=== PATIENT | female | born 1975 | race Caucasian/White ===

== ENCOUNTER 2021-11-24 09:27 | Outpatient (REF) | payer MEDICAID, SELFPAY ==
--- NOTE | ~2021-11-24 | XR_ITS ---
EXAMINATION: BILATERAL HAND X-RAY CLINICAL INFORMATION: Pain and swelling COMPARISON: None TECHNIQUE: 3 views of each hand FINDINGS: Bone alignment is normal. No fracture or dislocation. Bone mineralization is normal. Joint spaces are normal. Soft tissues are normal. XR/XR hand RT min 3V IMPRESSION: Unremarkable exam.
--- NOTE | ~2021-11-24 | XR_ITS ---
EXAMINATION: BILATERAL HAND X-RAY CLINICAL INFORMATION: Pain and swelling COMPARISON: None TECHNIQUE: 3 views of each hand FINDINGS: Bone alignment is normal. No fracture or dislocation. Bone mineralization is normal. Joint spaces are normal. Soft tissues are normal. XR/XR hand LT min 3V IMPRESSION: Unremarkable exam.
== END 2021-11-24 09:28 | disposition home or self-care (01) ==
LOC: HO.XRAY 09:27
PROVIDERS: PCP Internal Medicine Geriatric Medicine; Visit Provider Internal Medicine Geriatric Medicine
DX: M79.641 Pain in right hand (principal); M79.642 Pain in left hand
CPT/HCPCS: 73130

== ENCOUNTER 2022-01-08 20:56 | Observation (INO) | payer MEDICAID, SELFPAY ==
--- NOTE | ~2022-01-08 | XR_ITS ---
EXAMINATION: XR CHEST CLINICAL INFORMATION: Chest pain COMPARISON: None TECHNIQUE: Frontal view of the chest was obtained. FINDINGS: No significant abnormality is noted involving the heart, lungs, mediastinum, bony thorax or soft tissues. XR/XR chest 1V IMPRESSION: Unremarkable examination.
--- NOTE | 2022-01-08 21:00 | ECG_ITS ---
Test Reason : HYPERTENSION Blood Pressure : / mmHG Vent. Rate : 076 BPM Atrial Rate : 076 BPM P-R Int : 170 ms QRS Dur : 076 ms QT Int : 408 ms P-R-T Axes : 050 011 035 degrees QTc Int : 459 ms Normal sinus rhythm Normal ECG When compared with ECG of 18-DEC-2014 15:49, No significant change was found Referred By: Marielena Watts Electronically Signed By:CHOLO CISNEROS MD
[2022-01-08 21:01] VITALS: BP 167/78; BP 204/136; PULSE 77; PULSE 81; RESP 20; TEMP 36.8; O2SAT 99; BMI 31.2
--- NOTE | 2022-01-08 21:16 | ED.CHESTPAIN ---
HPI - Chest Pain General Chief Complaint: Chest Pain Stated Complaint: CHEST PAIN Time Seen by Provider: 01/08/22 21:00 Source: patient and family Mode of arrival: EMS History of Present Illness HPI narrative: 46-year-old female, every day smoker, history of hypertension who presents with 2 days of constant substernal chest discomfort that becomes more severe intermittently, during these times that last approximately 5-10 minutes and is associated with mild nausea but no dizziness, headache, diaphoresis, or shortness of breath. However, today patient states that the pain became ?much more severe? she denies any association with deep inspiration but states that when she moves it becomes worse. Related Data Allergies Allergy/AdvReac Type Severity Reaction Status Date / Time ibuprofen [From MOTRIN] Allergy Unknown SWELLING Unverified 12/04/19 15:47 Motrin Allergy Unknown Uncoded 08/19/19 00:00 Review of Systems Review of Systems: Pertinent positives and negatives as stated in HPI 10 point review of systems is otherwise negative. PMFSH Past Medical History Source: nursing notes reviewed Social History Social History Advance Directives: No Advance Directives Information Provided: No Physical Exam Vital Signs: Vital Signs: Last Vital Signs Temp 98.4 F 01/08/22 23:23 Pulse 77 01/08/22 23:23 Resp 26 H 01/08/22 23:23 BP 159/78 H 01/08/22 23:23 Pulse Ox 97 01/08/22 23:23 O2 Del Method 01/08/22 23:23 BMI result Body Mass Index 31.2 VITAL SIGNS: Reviewed. GENERAL: Well developed, well nourished, in no acute distress. HEAD: Normocephalic/atraumatic EYES: PERRLA, EOMI EARS: Ext canals without abnormality OROPHARYNX: no oral lesions noted, posterior pharynx clear LUNGS: Normal breath sounds. No adventitious sounds or accessory muscle use. SpO2<99> CARDIOVASCULAR: Regular rate and rhythm without noted murmurs, no JVD or lower extremity edema. ABDOMEN: Soft, non-tender, non-distended with bowel sounds. MUSCULOSKELETAL: No tenderness, deformities, or effusions noted on gross inspection. EXTREMITIES: No cyanosis, clubbing or edema. SKIN: Inspection of the skin reveals no rashes NEUROLOGIC: Alert and oriented x 4. Strength and sensation to light touch were grossly intact x 4. Course Course Course Narrative: 46-year-old female with history and clinical presentation for which will rule out cardiopulmonary etiologies but suspect may be a costochondritis or acid reflux and the possibility of gallbladder or pancreatic etiology. Review of all investigations without acute changes on EKG, however serial troponins continue to rise and suspect ACS but patient is allergic to ibuprofen so aspirin not given. I discussed case with the inpatient hospitalist who accepts admission. MDM - Chest Pain Lab Data Result diagrams: 01/08/22 21:13 01/08/22 21:49 Labs: Lab Results 01/08/22 01/08/22 01/08/22 Range/Units 21:13 21:13 21:28 WBC 10.2 (4.8-10.8) X10*3/uL RBC 4.24 (4.20-5.50) X10*6/uL Hgb 12.0 (12.0-16.0) g/dl Hct 36.9 L (37.0-47.0) % MCV 87.0 (80.0-98.0) fL MCH 28.3 (27.0-33.0) pg MCHC 32.5 (31.0-35.0) g/dl RDW 13.4 (11.0-16.0) % Plt Count 232 (160-400) X10*3/uL MPV 11.2 (9.4-12.3) fL Immature Gran % (Auto) 0.3 (0.0-0.4) % Neut % (Auto) 52.5 (45-73) % Lymph % (Auto) 32.0 (20-40) % [place] % (Auto) 11.5 H (2-11) % Eos % (Auto) 3.2 (0-4) % Baso % (Auto) 0.5 (0-2) % Lymph # (Auto) 3.3 (1.2-4.9) X10*3/uL [place] # (Auto) 1.2 (0.1-1.2) X10*3/uL Eos # (Auto) 0.3 (0.0-0.4) X10*3/uL Baso # (Auto) 0.1 (0.0-0.2) X10*3/uL Abs Immat Gran (auto) 0.03 (0.00-0.03) X10*3/uL Absolute Neuts (auto) 5.3 (2.0-8.3) x10*3/uL Absolute Nucleated RBC 0.000 (0.0-0.012) X10*3/uL Nucleated RBC % (auto) 0.0 (0.0-0.2) /100WBC PT 11.0 (10.0-13.1) SEC INR 1.0 (0.9-1.1) D-Dimer High Sensitivty 183 NG/ML Sodium (135-145) mmol/L Potassium (3.3-5.1) mmol/L Chloride (96-108) mmol/L Carbon Dioxide (22-29) mmol/L Anion Gap (12-20) BUN (9-16) mg/dL Creatinine (0.5-1.4) mg/dL Estim Creat Clear Calc Estimated GFR Random Glucose (60-115) mg/dL Calcium (8.4-10.2) mg/dL Total Bilirubin (0.0-1.0) mg/dL AST (5-31) U/L ALT (0-31) U/L Alkaline Phosphatase (39-117) U/L Troponin I High Sens (<3.5-17.0) ng/L Total Protein (6.5-8.0) g/dL Albumin (3.5-5.0) g/dL Lipase (8-78) U/L Urine Color Urine Appearance Urine pH (5.0-9.0) Ur Specific [place] (1.005-1.025) Urine Protein (Neg-Trace) mg/dL Urine Glucose (UA) (Negative) mg/dL Urine Ketones (Negative) mg/dL Urine Blood (Negative) Urine Nitrite (Negative) Ur Leukocyte Esterase (Negative) COVID-19 ([facility]) Negative (Negative) COVID-19 Clin Com See Note 01/08/22 01/08/22 01/08/22 Range/Units 21:49 21:49 23:20 WBC (4.8-10.8) X10*3/uL RBC (4.20-5.50) X10*6/uL Hgb (12.0-16.0) g/dl Hct (37.0-47.0) % MCV (80.0-98.0) fL MCH (27.0-33.0) pg MCHC (31.0-35.0) g/dl RDW (11.0-16.0) % Plt Count (160-400) X10*3/uL MPV (9.4-12.3) fL Immature Gran % (Auto) (0.0-0.4) % Neut % (Auto) (45-73) % Lymph % (Auto) (20-40) % [place] % (Auto) (2-11) % Eos % (Auto) (0-4) % Baso % (Auto) (0-2) % Lymph # (Auto) (1.2-4.9) X10*3/uL [place] # (Auto) (0.1-1.2) X10*3/uL Eos # (Auto) (0.0-0.4) X10*3/uL Baso # (Auto) (0.0-0.2) X10*3/uL Abs Immat Gran (auto) (0.00-0.03) X10*3/uL Absolute Neuts (auto) (2.0-8.3) x10*3/uL Absolute Nucleated RBC (0.0-0.012) X10*3/uL Nucleated RBC % (auto) (0.0-0.2) /100WBC PT (10.0-13.1) SEC INR (0.9-1.1) D-Dimer High Sensitivty NG/ML Sodium 141 (135-145) mmol/L Potassium 4.0 (3.3-5.1) mmol/L Chloride 110 H (96-108) mmol/L Carbon Dioxide 19 L (22-29) mmol/L Anion Gap 16 (12-20) BUN 10 (9-16) mg/dL Creatinine 0.74 (0.5-1.4) mg/dL Estim Creat Clear Calc 82.6 Estimated GFR > 60 Random Glucose 91 (60-115) mg/dL Calcium 8.5 (8.4-10.2) mg/dL Total Bilirubin 0.2 (0.0-1.0) mg/dL AST 15 (5-31) U/L ALT 18 (0-31) U/L Alkaline Phosphatase 70 (39-117) U/L Troponin I High Sens 31.8 H 55.8 H* D (<3.5-17.0) ng/L Total Protein 7.3 (6.5-8.0) g/dL Albumin 4.1 (3.5-5.0) g/dL Lipase 23 (8-78) U/L Urine Color Urine Appearance Urine pH (5.0-9.0) Ur Specific [place] (1.005-1.025) Urine Protein (Neg-Trace) mg/dL Urine Glucose (UA) (Negative) mg/dL Urine Ketones (Negative) mg/dL Urine Blood (Negative) Urine Nitrite (Negative) Ur Leukocyte Esterase (Negative) COVID-19 ([facility]) (Negative) COVID-19 Clin Com 01/09/22 01/09/22 Range/Units 00:18 01:10 WBC (4.8-10.8) X10*3/uL RBC (4.20-5.50) X10*6/uL Hgb (12.0-16.0) g/dl Hct (37.0-47.0) % MCV (80.0-98.0) fL MCH (27.0-33.0) pg MCHC (31.0-35.0) g/dl RDW (11.0-16.0) % Plt Count (160-400) X10*3/uL MPV (9.4-12.3) fL Immature Gran % (Auto) (0.0-0.4) % Neut % (Auto) (45-73) % Lymph % (Auto) (20-40) % [place] % (Auto) (2-11) % Eos % (Auto) (0-4) % Baso % (Auto) (0-2) % Lymph # (Auto) (1.2-4.9) X10*3/uL [place] # (Auto) (0.1-1.2) X10*3/uL Eos # (Auto) (0.0-0.4) X10*3/uL Baso # (Auto) (0.0-0.2) X10*3/uL Abs Immat Gran (auto) (0.00-0.03) X10*3/uL Absolute Neuts (auto) (2.0-8.3) x10*3/uL Absolute Nucleated RBC (0.0-0.012) X10*3/uL Nucleated RBC % (auto) (0.0-0.2) /100WBC PT (10.0-13.1) SEC INR (0.9-1.1) D-Dimer High Sensitivty NG/ML Sodium (135-145) mmol/L Potassium (3.3-5.1) mmol/L Chloride (96-108) mmol/L Carbon Dioxide (22-29) mmol/L Anion Gap (12-20) BUN (9-16) mg/dL Creatinine (0.5-1.4) mg/dL Estim Creat Clear Calc Estimated GFR Random Glucose (60-115) mg/dL Calcium (8.4-10.2) mg/dL Total Bilirubin (0.0-1.0) mg/dL AST (5-31) U/L ALT (0-31) U/L Alkaline Phosphatase (39-117) U/L Troponin I High Sens 94.5 H* D (<3.5-17.0) ng/L Total Protein (6.5-8.0) g/dL Albumin (3.5-5.0) g/dL Lipase (8-78) U/L Urine Color Yellow Urine Appearance Cloudy Urine pH 6.0 (5.0-9.0) Ur Specific [place] 1.015 (1.005-1.025) Urine Protein Negative (Neg-Trace) mg/dL Urine Glucose (UA) Negative (Negative) mg/dL Urine Ketones Negative (Negative) mg/dL Urine Blood Negative (Negative) Urine Nitrite Negative (Negative) Ur Leukocyte Esterase Negative (Negative) COVID-19 (MARY) (Negative) COVID-19 Clin Com ECG Data ECG #1: Attestation: I personally reviewed and interpreted this ECG as follows: Prior ECG tracings: available for review Interpretation: Normal sinus rhythm, HR-76, no STEMI, NC/QRS/QTC is within normal limits. Discharge Plan Discharge Clinical Impression: Chest pain, ACS (acute coronary syndrome), Hypertension Patient Disposition: Admitted As Inpatient
[2022-01-08 21:18] LABS: MANUAL DIFF FLAG NO
[2022-01-08 21:26] LABS: Basophils Absolute Auto 0.1 X10*3/uL (0.0-0.2); Basophils Percent Auto 0.5 % (0-2); Eosinophils Absolute Auto 0.3 X10*3/uL (0.0-0.4); Eosinophils Percent Auto 3.2 % (0-4); Hematocrit 36.9 % (37.0-47.0); Imm Gran Abs Auto 0.03 X10*3/uL (0.00-0.03); Imm Gran Pct Auto 0.3 % (0.0-0.4); Lymphocytes Absolute Auto 3.3 X10*3/uL (1.2-4.9); Mean Corpuscular HGB Conc 32.5 g/dl (31.0-35.0); Mean Corpuscular Hemoglobin 28.3 pg (27.0-33.0); Mean Platelet Volume 11.2 fL (9.4-12.3); Monocytes Absolute Auto 1.2 X10*3/uL (0.1-1.2); Monocytes Percent Auto 11.5 % (2-11); Neutrophils Absolute Auto 5.3 x10*3/uL (2.0-8.3); Neutrophils Percent Auto 52.5 % (45-73); PLT CLUMP 1; Red Blood Count 4.24 X10*6/uL (4.20-5.50); Red Cell Distribution Width 13.4 % (11.0-16.0); SCAN SMEAR FLAG 1
[2022-01-08 21:27] LABS: Platelet Count 232 X10*3/uL (160-400); White Blood Count 10.2 X10*3/uL (4.8-10.8)
[2022-01-08 21:49] LABS: COVID-19 Test Negative (Negative); IDNOW Serial# 08D9AD1C
[2022-01-08 22:12] LABS: Alanine Aminotransferase 18 U/L (0-31); Albumin Level 4.1 g/dL (3.5-5.0); Alkaline Phosphatase 70 U/L (39-117); Anion Gap 16 (12-20); Aspartate Amino Transferase 15 U/L (5-31); Bilirubin Total 0.2 mg/dL (0.0-1.0); Blood Urea Nitrogen 10 mg/dL (9-16); Calcium 8.5 mg/dL (8.4-10.2); Carbon Dioxide 19 mmol/L (22-29); Chloride 110 mmol/L (96-108); Creatinine Clr Calc Pharmacy 82.6; Estimated Glomerular Filt Rate > 60; Glucose Random 91 mg/dL (60-115); Lipase 23 U/L (8-78); Sodium 141 mmol/L (135-145); Total Protein 7.3 g/dL (6.5-8.0)
[2022-01-08 22:17] LABS: Troponin-I High Sensitivity 31.8 ng/L (<3.5-17.0)
[2022-01-08 22:32] LABS: D Dimer High Sensitivity 183 NG/ML
[2022-01-08 22:42] VITALS: BP 155/85; PULSE 75; RESP 18; TEMP 36.9; O2SAT 99
[2022-01-08 23:23] VITALS: BP 159/78; PULSE 77; RESP 26; TEMP 36.9; O2SAT 97
[2022-01-08 23:50] LABS: Troponin-I High Sensitivity 55.8 ng/L (<3.5-17.0)
[2022-01-09 00:25] LABS: Appearance Urine Cloudy; Color Urine Yellow; Glucose Urine UA Negative (Negative); Leukocyte Esterase Urine Negative (Negative); Nitrite Urine Negative (Negative); Specific Gravity - Urine 1.015 (1.005-1.025); Urine Blood Negative (Negative); Urine Ketones Negative (Negative); Urine Protein Negative (Neg-Trace)
[2022-01-09 01:41] LABS: Troponin-I High Sensitivity 94.5 ng/L (<3.5-17.0)
[2022-01-09 02:00] VITALS: BP 152/75; PULSE 91; RESP 17; TEMP 36.9; O2SAT 97
[2022-01-09 02:17] VITALS: PULSE 67
[2022-01-09] MEDS: LORazepam 0.5 MG TABLET PO (04:14)
--- NOTE | 2022-01-09 04:18 | PC.NURSE ---
Took over care at 3:30am Pt is resting in bed. no sign of distress. Medicated per Mar. Will continue to monitor.
--- NOTE | 2022-01-09 05:37 | PM.EVENT ---
Event Note Date of Service: 01/09/22 Event Note: pt was seen for admission. She does not want to stay. she feels anxious, despite being given ativan., she still does not want to stay. I did not get a chance to compelte H&P, or exam. She knows that risk of leaving against my medical advice, given her elevated trops in worst case scenario experiencing a major cardiac event and dying. she undersntad. Dr. Watts was present during this discussion with pt. She will be leaving against my medical adivce
--- NOTE | 2022-01-09 05:55 | PC.NURSE ---
Pt requesting to go home. Provider aware and into discuss risk vs. benefit, pt still requesting to go home. Reviewed discharge instructions with pt. pt verbalized understanding. No sign of distress.
== END 2022-01-09 06:30 | disposition left against medical advice (07) ==
LOC: HO.ED 01-09 01:56 → HO.EDOVER 01-09 01:57
PROVIDERS: Admitting Provider Internal Medicine; Emergency Provider Student in an Organized Health Care Education/Training Program; Visit Provider Internal Medicine
DX: I24.9 Acute ischemic heart disease, unspecified (principal); R07.9 Chest pain, unspecified; I10 Essential (primary) hypertension; Z20.822 Contact with and (suspected) exposure to COVID-19; F41.1 Generalized anxiety disorder; F17.200 Nicotine dependence, unspecified, uncomplicated
CPT/HCPCS: 36415; 71045; 80053; 81003; 83690; 84484; 85025; 85379; 85610; 87635; 93005; 99219; 99285

== ENCOUNTER 2022-01-09 19:19 | Inpatient (IN) | payer MEDICAID, SELFPAY ==
--- NOTE | ~2022-01-09 | CT_ITS ---
EXAMINATION: CTA CHEST PE STUDY CLINICAL INFORMATION: + dimer COMPARISON: No pertinent prior studies are available for comparison. TECHNIQUE: Prior to contrast administration, noncontrast localization images were obtained. After the administration of 65 mL of Omnipaque nonionic IV contrast, contiguous thin slice helical images were obtained through the thorax. Reformatted MIP images in the coronal and sagittal planes were obtained at the acquisition workstation. This CT examination was performed using dose optimization techniques as appropriate, variously including the following: *Automated exposure control *Adjustment of mA and/or kV according to patient size (this includes techniques or standardized protocols for targeted exams where dose is matched to indication/reason for exam; i.e. extremities or head) *Use of iterative reconstruction technique DLP: 276 mGy-cm. FINDINGS: The bolus timing on this study was acceptable for visualization of the pulmonary arterial tree. There are no intraluminal pulmonary arterial filling defects present to suggest pulmonary embolism. Minimal dependent atelectasis. No abnormal pulmonary nodules or masses are appreciated. No significant hilar or mediastinal adenopathy. There is no evidence of pleural effusion or pneumothorax. The heart is normal in size. No evidence of ventricular septal bowing or right heart strain. Great vessels are normal. Otherwise the mediastinum is unremarkable. There is no pericardial effusion or pericardial thickening. Limited evaluation of the upper abdominal viscera is unremarkable. CT/CT angio chest PE protocol IMPRESSION: No evidence for pulmonary emboli. VTE: Negative
--- NOTE | ~2022-01-09 | XR_ITS ---
EXAMINATION: XR CHEST CLINICAL INFORMATION: Chest pain COMPARISON: 01/08/2022, yesterday TECHNIQUE: Frontal view of the chest was obtained. FINDINGS: No significant abnormality is noted involving the heart, lungs, mediastinum, bony thorax or soft tissues. XR/XR chest 1V IMPRESSION: Unremarkable examination.
[2022-01-09 19:29] VITALS: BP 150/88; PULSE 106; O2SAT 100; BMI 29.1
--- NOTE | 2022-01-09 19:31 | ECG_ITS ---
Test Reason : CHEST PAIN Blood Pressure : / mmHG Vent. Rate : 078 BPM Atrial Rate : 078 BPM P-R Int : 164 ms QRS Dur : 070 ms QT Int : 416 ms P-R-T Axes : 047 001 -25 degrees QTc Int : 474 ms Normal sinus rhythm Inferior infarct , age undetermined T-wave inversion in Inferior leads Nonspecific T wave abnormality lateral precordial leads Abnormal ECG When compared with ECG of 08-JAN-2022 21:16, T wave inversion now evident in Inferior leads Nonspecific T wave abnormality lateral precordial leads Referred By: Snehal Cruz Electronically Signed By:CHOLO CISNEROS MD
--- NOTE | 2022-01-09 19:42 | ED.CHESTPAIN ---
HPI - Chest Pain General Chief Complaint: Chest Pain Stated Complaint: cp Time Seen by Provider: 01/09/22 19:29 Source: patient Mode of arrival: ambulatory Limitations: no limitations History of Present Illness HPI narrative: This is a 46-year-old female past medical history significant for hypertension presenting to the emergency department with complaints of severe intermittent substernal chest pain that times radiates into bilateral draws. Patient tells me that she was here yesterday and she left. She reports that at times she gets nausea with her shortness of breath she tells me that since she left the hospital yesterday it has been worsening. She also reports that sometimes her chest pain is worse with movement or palpation. Patient is a current daily smoker. No history of DVT or PE. Not on anticoagulation. She denies shortness of breath, dizziness, fevers, chills, vomiting, abdominal pain, weakness, vision changes. Related Data Allergies Allergy/AdvReac Type Severity Reaction Status Date / Time ibuprofen [From MOTRIN] Allergy Unknown SWELLING Unverified 12/04/19 15:47 Motrin Allergy Unknown Uncoded 08/19/19 00:00 Review of Systems Review of Systems: Constitutional : No Weight loss, No Fever, No Chills, No Fatigue, No Malaise ENT/Mouth : No sore throat, No Rhinorrhea Eyes: No Eye Pain, No Swelling, No Redness Cardiovascular : + Chest Pain, No SOB, No Dyspnea on Exertion, No Orthopnea, No Edema, No Palpitations Respiratory : No Cough, No Sputum, No Wheezing Gastrointestinal : No Nausea, No Vomiting, No Diarrhea, No Constipation, No abdominal Pain, No Hematochezia, No Melena Genitourinary : No Dysuria, No Urinary Frequency, No Hematuria, Musculoskeletal : No joint pain, No Myalgias, No Joint Swelling Skin : No Skin Lesions, No rash Neuro : No Weakness, No Numbness, No Dizziness, No Headache Psych : No Anxiety/Panic, No Depression All other systems reviewed and are negative Yes all other systems are reviewed and are negative [facility] Past Medical History Attestation statement: The following information was validated with the patient. Source: old records reviewed and nursing notes reviewed Social History Social History Alcohol intake: current Alcohol intake frequency: a few times a month Patient Tobacco Use Status: Current everyday Tobacco user Advance Directives: No Advance Directives Information Provided: No Physical Exam Vital Signs: Vital Signs: Last Vital Signs Pulse 74 01/09/22 20:44 Resp 22 H 01/09/22 20:00 BP 166/89 H 01/09/22 20:44 Pulse Ox 100 01/09/22 20:00 O2 Del Method 01/09/22 20:00 BMI result Body Mass Index 33.0 Appearance: Alert.? Oriented X3.? No acute distress.? Head: Normocephalic, atraumatic, no step-offs or deformities Eyes: Pupils equal, round and reactive to light.? ENT: Pharynx normal.? Neck: Normal inspection.? Neck supple.? CVS: Normal heart rate and rhythm.? Pulses normal.? Discomfort with palpation of anterior chest wall throughout. Respiratory: No respiratory distress.? Breath sounds normal.? Abdomen: Soft and nontender.? Skin: Skin warm and dry.? Normal skin color.? Normal skin turgor.? Extremities: No lower extremity edema.? No calf ttp. 5/5 strength to bilateral upper and lower extremities Back: No midline tenderness, no C-spine tenderness, full range of motion, no CVA tenderness bilaterally Neuro: Oriented X 3.? No motor deficit.? No sensory deficit. CN 2-12 intact Course Reevaluation(s) Reevaluation #1: CBC appears to be around patient's baseline. Chemistry with no acute electrolyte abnormalities requiring intervention. Troponin elevated to 10.8, new EKG ST depressions noted, concerning for NSTEMI. I did reach out to Cardiology Dr. Frank. Recommends heparin, metoprolol, nitroglycerin, atorvastatin. Initially I gave Plavix as patient has an aspirin allergy. Dimer slightly + low suspicion for PE however will obtain CTA to rule out Time: 20:48 Reevaluation #2: CTA negative patient will be admitted for NSTEMI. Discussed w/ hospitalist. Time: 21:45 MDM - Chest Pain MDM Narrative Medical decision making narrative: 194 46-year-old female presents with substernal chest pain x3 days worsening. Reports it intermittently radiates to her jaw. History of hypertension and current daily smoker. Physical examination with anterior chest wall pain on palpation. Regular rate and rhythm. Lungs clear. Abdomen soft nontender nondistended. Neuro nonfocal. Immediately upon patient's entry into the room an EKG was obtained which shows new ST depressions in lead III when compared to ekg from yesterday concerning for ACS. Patient allergic to asa reaching out to cardiology at this time. History and physical examination concerning for ACS. Low suspicion for PE, AAA, myocarditis, pericarditis, endocarditis Plan- labs, ekg, trop, cxr. Medical Records Data Attestation: I reviewed the patient's medical records. Lab Data Attestation: I reviewed the patient's lab results. Result diagrams: 01/09/22 19:53 01/09/22 19:53 Labs: Lab Results 01/09/22 01/09/22 01/09/22 Range/Units 19:53 19:53 19:53 WBC 8.2 (4.8-10.8) X10*3/uL RBC 4.26 (4.20-5.50) X10*6/uL Hgb 11.7 L (12.0-16.0) g/dl Hct 36.0 L (37.0-47.0) % MCV 84.5 (80.0-98.0) fL MCH 27.5 (27.0-33.0) pg MCHC 32.5 (31.0-35.0) g/dl RDW 13.1 (11.0-16.0) % Plt Count 232 (160-400) X10*3/uL MPV 9.3 L (9.4-12.3) fL Immature Gran % (Auto) 0.2 (0.0-0.4) % Neut % (Auto) 53.5 (45-73) % Lymph % (Auto) 33.0 (20-40) % [place] % (Auto) 9.5 (2-11) % Eos % (Auto) 3.2 (0-4) % Baso % (Auto) 0.6 (0-2) % Lymph # (Auto) 2.7 (1.2-4.9) X10*3/uL [place] # (Auto) 0.8 (0.1-1.2) X10*3/uL Eos # (Auto) 0.3 (0.0-0.4) X10*3/uL Baso # (Auto) 0.1 (0.0-0.2) X10*3/uL Abs Immat Gran (auto) 0.02 (0.00-0.03) X10*3/uL Absolute Neuts (auto) 4.4 (2.0-8.3) x10*3/uL Absolute Nucleated RBC 0.000 (0.0-0.012) X10*3/uL Nucleated RBC % (auto) 0.0 (0.0-0.2) /100WBC D-Dimer High Sensitivty NG/ML Sodium 141 (135-145) mmol/L Potassium 3.7 (3.3-5.1) mmol/L Chloride 109 H (96-108) mmol/L Carbon Dioxide 22 (22-29) mmol/L Anion Gap 14 (12-20) BUN 9 (9-16) mg/dL Creatinine 0.74 (0.5-1.4) mg/dL Estim Creat Clear Calc 96.7 Estimated GFR > 60 Random Glucose 118 H (60-115) mg/dL Calcium 8.9 (8.4-10.2) mg/dL Total Bilirubin 0.4 (0.0-1.0) mg/dL AST 16 (5-31) U/L ALT 18 (0-31) U/L Alkaline Phosphatase 74 (39-117) U/L Troponin I High Sens (<3.5-17.0) ng/L Total Protein 7.4 (6.5-8.0) g/dL Albumin 4.2 (3.5-5.0) g/dL Beta HCG, Quant < 2 mIU/mL COVID-19 ([facility]) Negative (Negative) COVID-19 Clin Com See Note 01/09/22 01/09/22 Range/Units 19:53 19:53 WBC (4.8-10.8) X10*3/uL RBC (4.20-5.50) X10*6/uL Hgb (12.0-16.0) g/dl Hct (37.0-47.0) % MCV (80.0-98.0) fL MCH (27.0-33.0) pg MCHC (31.0-35.0) g/dl RDW (11.0-16.0) % Plt Count (160-400) X10*3/uL MPV (9.4-12.3) fL Immature Gran % (Auto) (0.0-0.4) % Neut % (Auto) (45-73) % Lymph % (Auto) (20-40) % [place] % (Auto) (2-11) % Eos % (Auto) (0-4) % Baso % (Auto) (0-2) % Lymph # (Auto) (1.2-4.9) X10*3/uL [place] # (Auto) (0.1-1.2) X10*3/uL Eos # (Auto) (0.0-0.4) X10*3/uL Baso # (Auto) (0.0-0.2) X10*3/uL Abs Immat Gran (auto) (0.00-0.03) X10*3/uL Absolute Neuts (auto) (2.0-8.3) x10*3/uL Absolute Nucleated RBC (0.0-0.012) X10*3/uL Nucleated RBC % (auto) (0.0-0.2) /100WBC D-Dimer High Sensitivty 243 NG/ML Sodium (135-145) mmol/L Potassium (3.3-5.1) mmol/L Chloride (96-108) mmol/L Carbon Dioxide (22-29) mmol/L Anion Gap (12-20) BUN (9-16) mg/dL Creatinine (0.5-1.4) mg/dL Estim Creat Clear Calc Estimated GFR Random Glucose (60-115) mg/dL Calcium (8.4-10.2) mg/dL Total Bilirubin (0.0-1.0) mg/dL AST (5-31) U/L ALT (0-31) U/L Alkaline Phosphatase (39-117) U/L Troponin I High Sens 210.8 H* D (<3.5-17.0) ng/L Total Protein (6.5-8.0) g/dL Albumin (3.5-5.0) g/dL Beta HCG, Quant mIU/mL COVID-19 (MARY) (Negative) COVID-19 Clin Com Critical Care Time Critical Care Time Critical Care Time: Yes Total Critical Care Time: 35 Attestation: I attest to this time spent taking care of the patient, obtaining history, physical, reviewing labs, imaging, speaking to my attending, speaking to specialist. Discharge Plan Discharge Clinical Impression: ACS (acute coronary syndrome), Non-ST elevation PA (NSTEMI) Patient Disposition: Admitted As Inpatient
[2022-01-09 19:57] LABS: MANUAL DIFF FLAG NO
[2022-01-09 19:58] LABS: Basophils Absolute Auto 0.1 X10*3/uL (0.0-0.2); Basophils Percent Auto 0.6 % (0-2); Eosinophils Absolute Auto 0.3 X10*3/uL (0.0-0.4); Eosinophils Percent Auto 3.2 % (0-4); Hemoglobin 11.7 g/dl (12.0-16.0); Imm Gran Abs Auto 0.02 X10*3/uL (0.00-0.03); Imm Gran Pct Auto 0.2 % (0.0-0.4); Lymphocytes Absolute Auto 2.7 X10*3/uL (1.2-4.9); Mean Corpuscular HGB Conc 32.5 g/dl (31.0-35.0); Mean Corpuscular Hemoglobin 27.5 pg (27.0-33.0); Mean Corpuscular Volume 84.5 fL (80.0-98.0); Mean Platelet Volume 9.3 fL (9.4-12.3); Monocytes Absolute Auto 0.8 X10*3/uL (0.1-1.2); Monocytes Percent Auto 9.5 % (2-11); Neutrophils Absolute Auto 4.4 x10*3/uL (2.0-8.3); Neutrophils Percent Auto 53.5 % (45-73); Platelet Count 232 X10*3/uL (160-400); Red Blood Count 4.26 X10*6/uL (4.20-5.50); Red Cell Distribution Width 13.1 % (11.0-16.0); White Blood Count 8.2 X10*3/uL (4.8-10.8)
[2022-01-09 20:00] VITALS: BP 161/92; PULSE 80; RESP 22; O2SAT 100
[2022-01-09 20:06] LABS: D Dimer High Sensitivity 243 NG/ML
[2022-01-09 20:16] LABS: Alanine Aminotransferase 18 U/L (0-31); Albumin Level 4.2 g/dL (3.5-5.0); Alkaline Phosphatase 74 U/L (39-117); Anion Gap 14 (12-20); Aspartate Amino Transferase 16 U/L (5-31); Bilirubin Total 0.4 mg/dL (0.0-1.0); Blood Urea Nitrogen 9 mg/dL (9-16); Calcium 8.9 mg/dL (8.4-10.2); Carbon Dioxide 22 mmol/L (22-29); Chloride 109 mmol/L (96-108); Creatinine Clr Calc Pharmacy 96.7; Estimated Glomerular Filt Rate > 60; Glucose Random 118 mg/dL (60-115); Potassium 3.7 mmol/L (3.3-5.1); Sodium 141 mmol/L (135-145); Total Protein 7.4 g/dL (6.5-8.0)
[2022-01-09 20:17] LABS: COVID-19 Test Negative (Negative); IDNOW Serial# 16C4AD1C
[2022-01-09] MEDS: Metoprolol Tartrate 25 MG TABLET PO (20:23)
[2022-01-09] MEDS: Clopidogrel Bisulfate 300 MG TABLET PO (20:23)
[2022-01-09] MEDS: Atorvastatin Calcium 80 MG TABLET PO (20:23)
[2022-01-09 20:24] VITALS: BMI 33.0
[2022-01-09] MEDS: Heparin Sodium,Porcine 5,000 UNIT/ML VIAL 4000 UNIT IVPUSH (20:24)
[2022-01-09 20:34] LABS: Troponin-I High Sensitivity 210.8 ng/L (<3.5-17.0)
[2022-01-09 20:44] VITALS: BP 166/89; PULSE 74
[2022-01-09] MEDS: Nitroglycerin 0.4 MG TAB.SUBL SUBLINGUAL (20:44)
[2022-01-09 20:46] LABS: HCG Quantitative < 2 mIU/mL
[2022-01-09] MEDS: iohexoL 350 MG/ML 100 ML INFUS..BTL IV (21:09)
[2022-01-09 21:52] LABS: Hematocrit 34.7 % (37.0-47.0); Hemoglobin 11.5 g/dl (12.0-16.0); Mean Corpuscular HGB Conc 33.1 g/dl (31.0-35.0); Mean Corpuscular Hemoglobin 27.6 pg (27.0-33.0); Mean Corpuscular Volume 83.4 fL (80.0-98.0); Mean Platelet Volume 9.5 fL (9.4-12.3); Platelet Count 254 X10*3/uL (160-400); Red Blood Count 4.16 X10*6/uL (4.20-5.50); Red Cell Distribution Width 13.1 % (11.0-16.0); White Blood Count 9.3 X10*3/uL (4.8-10.8)
[2022-01-09 21:57] LABS: INTERNATIONAL NORM RATIO 1.1 (0.9-1.1); Prothrombin Time 12.3 SEC (10.0-13.1)
--- NOTE | 2022-01-09 22:04 | P.HPHOSP_ITS ---
History of Present Illness Date of Service: 01/09/22 Chief Complaint: Chest pain This is a 46-year-old female with a pertinent history of generalized anxiety disorder, essential hypertension who presents to the emergency department for evaluation of chest discomfort. Patient states chest discomfort is substernal, radiating to the jaw, associated with nausea and sweating and lasts 5-10 minutes. It has been ongoing for the last 2 days. Worse with ambulation/climbing stairs and better with rest. Patient came to the ER yesterday with similar complaints but left against medical advice. She experienced similar chest discomfort when she was climbing stairs and hence presented for further evaluation. In the emergency department, patient states her chest discomfort resolved with nitroglycerin sublingual. No history of ACS or similar complaints in the past. Patient denies any trauma/fall and does endorse that the chest discomfort is sometimes reproducible with palpation. No fever, chills, palpitations, shortness of breath, abdominal discomfort, changes in urinary or bowel habits In the emergency department, troponin was found to be elevated and EKG was with new ST depression in lead III. Cardiology was consulted who recommended admission. Review of Systems Review of Systems: All 13 review of systems are negative except as noted in HPI [facility] Medical History Generalized anxiety disorder Hypertension Social History Alcohol intake: current Alcohol intake frequency: a few times a month Patient Tobacco Use Status: Current everyday Tobacco user Advance Directives: No Advance Directives Information Provided: No Meds Allergies Allergy/AdvReac Type Severity Reaction Status Date / Time ibuprofen [From MOTRIN] Allergy Unknown SWELLING Unverified 12/04/19 15:47 Motrin Allergy Unknown Uncoded 08/19/19 00:00 Active Medications: Current Medications Acetaminophen (Acetaminophen 325 Mg Tablet) 650 mg PO Q6H PRN PRN Reason: Pain, Mild (Pain Scale 1-3) Heparin Sodium (Porcine) (Heparin Sodium,Porcine 5,000 Unit/Ml Vial) 3,200 unit 40 unit/kg (3200 unit) IVPUSH PROTOCOL BOLUS PRN; Protocol PRN Reason: 40 unit/kg - Heparin Protocol Heparin Sodium (Porcine) (Heparin Sodium,Porcine 5,000 Unit/Ml Vial) 6,400 unit 80 unit/kg (6400 unit) IVPUSH PROTOCOL BOLUS PRN; Protocol PRN Reason: 80 unit/kg - Heparin Protocol Heparin Sodium/Sodium Chloride (Heparin Sodium,Porcine/1/2ns) 25,000 unit in 250 mls @ 0 mls/hr IVCONT .Q0M JORDEN; Protocol Melatonin (Melatonin 3 Mg Tablet) 6 mg PO BEDTIME PRN PRN Reason: Insomnia Nitroglycerin (Nitroglycerin 0.4 Mg Tab.Subl) 0.4 mg SUBLINGUAL Q5MX3 PRN PRN Reason: Chest Pain Last Admin: 01/09/22 20:44 Dose: 0.4 mg Nitroglycerin (Nitroglycerin 0.4 Mg Tab.Subl) 0.4 mg SUBLINGUAL Q5M PRN PRN Reason: Chest Pain Pharmacy Consult (Consult Rx Perform Med Rec) 1 each MISCELLANE ONCE STA Stop: 01/09/22 21:03 Sodium Chloride (0.9 % Sodium Chloride Flush 3 Ml Syringe) 3 ml IVFLUSH QSHIFT [facility] Physical Exam Vital Signs and Narrative: Vital Signs: Last Vital Signs Pulse 74 01/09/22 20:44 Resp 22 H 01/09/22 20:00 BP 166/89 H 01/09/22 20:44 Pulse Ox 100 01/09/22 20:00 O2 Del Method 01/09/22 20:00 BMI result Body Mass Index 33.0 Middle-aged female lying in bed in no distress Neck supple, no JVD, chest tenderness on sternum palpation Regular rate and rhythm, S1-S2 heard Regular breath sounds bilaterally, no wheezing or crackles appreciated Abdomen soft nontender, no guarding, no rigidity Patient is awake, alert and oriented to self, place, time and person ; no focal motor deficit Psych: Normal mood No pedal edema Results Labs CBC and Chem 7: 01/09/22 21:47 01/09/22 19:53 Labs: Laboratory Results - last 24 hr 01/09/22 01/09/22 01/09/22 19:53 19:53 19:53 MCV 84.5 MCH 27.5 MCHC 32.5 RDW 13.1 Plt Count 232 MPV 9.3 L Immature Gran % (Auto) 0.2 Neut % (Auto) 53.5 Lymph % (Auto) 33.0 [place] % (Auto) 9.5 Eos % (Auto) 3.2 Baso % (Auto) 0.6 Lymph # (Auto) 2.7 [place] # (Auto) 0.8 Eos # (Auto) 0.3 Baso # (Auto) 0.1 Abs Immat Gran (auto) 0.02 Absolute Neuts (auto) 4.4 Absolute Nucleated RBC 0.000 Nucleated RBC % (auto) 0.0 D-Dimer High Sensitivty Anion Gap 14 Estim Creat Clear Calc 96.7 Estimated GFR > 60 Random Glucose 118 H Calcium 8.9 Total Bilirubin 0.4 AST 16 ALT 18 Alkaline Phosphatase 74 Troponin I High Sens Total Protein 7.4 Albumin 4.2 Beta HCG, Quant < 2 COVID-19 (MARY) Negative COVID-19 Clin Com See Note 01/09/22 01/09/22 01/09/22 19:53 19:53 21:47 MCV 83.4 MCH 27.6 MCHC 33.1 RDW 13.1 Plt Count 254 MPV 9.5 Immature Gran % (Auto) Neut % (Auto) Lymph % (Auto) [place] % (Auto) Eos % (Auto) Baso % (Auto) Lymph # (Auto) [place] # (Auto) Eos # (Auto) Baso # (Auto) Abs Immat Gran (auto) Absolute Neuts (auto) Absolute Nucleated RBC 0.000 Nucleated RBC % (auto) 0.0 D-Dimer High Sensitivty 243 Anion Gap Estim Creat Clear Calc Estimated GFR Random Glucose Calcium Total Bilirubin AST ALT Alkaline Phosphatase Troponin I High Sens 210.8 H* D Total Protein Albumin Beta HCG, Quant COVID-19 (MARY) COVID-19 Clin Com Imaging Radiologist's Impressions: Impressions Chest X-Ray 01/09/22 20:30 IMPRESSION: Unremarkable examination. Chest CTA 01/09/22 21:05 IMPRESSION: No evidence for pulmonary emboli. VTE: Negative Assessment and Plan (1) Non-ST elevation MT (NSTEMI): Status: Acute (2) Hypertension: Status: Acute (3) Generalized anxiety disorder: Status: Acute (4) Chest pain: Status: Acute Plan This is a 46-year-old female with a pertinent history of generalized anxiety disorder, essential hypertension who presents to the emergency department for evaluation of chest discomfort. #. 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 Cardiology consulted from the ER and patient received heparin as per protocol. She also received Plavix loading dose, high-intensity statin and beta-leti. Patient is allergic to aspirin. Appreciate cardiology recommendations. Obtaining lipid panel #. Essential hypertension -on metoprolol #. Generalized anxiety disorder -continue home p.o. medications DVT prophylaxis: Heparin Diet: Cardiac diet Full code Patient will require two night minimum hospital stay for evaluation and management of acute coronary syndrome. Quality Stroke Does the patient have a stroke diagnosis?: No VTE Prior VTE?: No VTE Risk Level:: Medical - low VTE Device Contraindication: Treatment Not Indicated VTE Drug Contraindication: N/A - Med Ordered
[2022-01-09 22:12] LABS: PTT Heparin Drip 110.7 SEC (53-77.9)
[2022-01-09 22:13] LABS: PTT Heparin Drip 102.2 SEC (53-77.9)
[2022-01-09 22:37] VITALS: BP 151/76; PULSE 76; RESP 24; TEMP 37.1; O2SAT 96
--- NOTE | 2022-01-09 22:46 | PHA.MEDREC ---
Pharmacy Consult ? Medication Reconciliation Pharmacy has completed the medication reconciliation.
[2022-01-09 22:57] LABS: Hematocrit 34.2 % (37.0-47.0); Hemoglobin 11.4 g/dl (12.0-16.0); Mean Corpuscular HGB Conc 33.3 g/dl (31.0-35.0); Mean Corpuscular Hemoglobin 27.6 pg (27.0-33.0); Mean Corpuscular Volume 82.8 fL (80.0-98.0); Mean Platelet Volume 9.6 fL (9.4-12.3); Platelet Count 241 X10*3/uL (160-400); Red Blood Count 4.13 X10*6/uL (4.20-5.50); White Blood Count 9.8 X10*3/uL (4.8-10.8)
[2022-01-09 23:04] VITALS: BMI 26.5
[2022-01-09 23:09] LABS: Partial Thromboplastin Time 41.1 SEC (26.0-36.4)
[2022-01-09 23:18] LABS: Cholesterol 183 mg/dL; HDL Cholesterol 47 mg/dL; LDL Cholesterol Calculated 124 mg/dl; Triglycerides 62 mg/dL
[2022-01-09 23:22] LABS: Troponin-I High Sensitivity 222.1 ng/L (<3.5-17.0)
--- NOTE | 2022-01-09 23:23 | PC.NURSE ---
Lab called with a critical troponin level of 222.1. notified.
[2022-01-10] MEDS: Heparin Sodium,Porcine/1/2NS 25,000 UNIT/250 ML IV.SOLN 7.4 UNIT IVCONT (00:11)
[2022-01-10] MEDS: busPIRone HCl 10 MG TABLET 20 MG PO (01:26)
[2022-01-10] MEDS: risperiDONE 0.5 MG TABLET 1.5 MG PO (01:26)
[2022-01-10 02:47] VITALS: BP 149/77; PULSE 79; RESP 16; TEMP 36.8; O2SAT 97
[2022-01-10 04:48] LABS: Hematocrit 34.6 % (37.0-47.0); Hemoglobin 11.6 g/dl (12.0-16.0); Mean Corpuscular HGB Conc 33.5 g/dl (31.0-35.0); Mean Corpuscular Hemoglobin 28.4 pg (27.0-33.0); Mean Corpuscular Volume 84.6 fL (80.0-98.0); Mean Platelet Volume 10.1 fL (9.4-12.3); Platelet Count 238 X10*3/uL (160-400); Red Blood Count 4.09 X10*6/uL (4.20-5.50); White Blood Count 10.8 X10*3/uL (4.8-10.8)
[2022-01-10 04:53] LABS: Prothrombin Time 11.9 SEC (10.0-13.1)
[2022-01-10 04:56] LABS: Partial Thromboplastin Time 43.2 SEC (26.0-36.4)
[2022-01-10 05:11] LABS: Troponin-I High Sensitivity 228.7 ng/L (<3.5-17.0)
--- NOTE | 2022-01-10 05:16 | PC.NURSE ---
Lab called with a critical result for an elevated troponin level 228.7. aware.
--- NOTE | 2022-01-10 07:00 | CA_ITS ---
Transthoracic Echocardiogram Patient (Last, First, Middle): Lidia Harley, Gender: Female Date of : 1975 Age: 46 Procedure Date: 01/10/2022 Procedure Type: Transthoracic Echocardiogram Location: ER Height: 162.56 cm Weight: 72.58 kg BSA: 1.78 m2 Heart Rate: bpm BP: 139 / 79 mmHg Unix System Administrator: LITA Referring MD: Francis Frank MD Plant Wrapper: Francis Frank MD Symptoms: ACS Study Quality: Adequate ECG Rhythm: Sinus Tachycardia Conclusions: - 1. Normal LV systolic function with grade 1 diastolic dysfunction with wall motion abnormality suggestive of coronary artery disease 2. Normal cardiac valvular Doppler 3. Normal RV systolic pressure 4. No gross pericardial effusion Findings Left Ventricle Normal left ventricular size, thickness, and systolic function. The visually estimated ejection fraction is between 60-65%. Spectral Doppler is indicative of an impaired relaxation filling pattern. E/E prime ratio is <8, consistent with normal filling pressures. Evidence suggests grade I (mild) diastolic dysfunction. Wall Motion Rest Echo Findings The inferoseptal wall, the mid inferior, and basal inferolateral segments are hypokinetic. The basal inferior segment is akinetic. All other scored wall segments showed normal motion. Right Ventricle Normal right ventricular cavity size and systolic function. Atria Both atria are normal in size. There is no evidence of interatrial shunt. Aortic Valve The aortic valve structure and function is likely normal. There is no aortic valve stenosis. There is no aortic valve regurgitation. Mitral Valve Normal mitral valve structure and function. There is trace mitral valve regurgitation. There is no mitral valve stenosis. Pulmonic Valve The pulmonic valve was not well visualized. Tricuspid Valve Likely normal tricuspid valve structure and function. There is trace tricuspid valve regurgitation. The right ventricular systolic pressure is normal. The right ventricular systolic pressure is 18 mmHg. Normal right atrial pressure. There is no evidence of pulmonary hypertension. Great Vessels All visible segments of the aorta are normal in size. The pulmonary artery was not well visualized. Venous The inferior vena cava is normal in size and collapses greater than 50% with inspiration. Pericardium/Pleural There is no evidence of pericardial effusion. Prior Study Comparison No prior study available for comparison. Measurements 2D Linear Measurements IVSd: 1.06 0.6-0.9/0.6-1.0 cm LVIDd: 4.57 3.9-5.3/4.2-5.9 cm LVIDd Index: 2.57 2.4-3.2/2.2-3.1 cm/m2 LVIDs: 2.98 2.0-3.6 cm LVPWd: 1.02 0.7-1.1 cm Ao Root: 3.00 2.1-3.5 cm LA Diam: 2.90 2.7-3.8/3.0-4.0 cm LAIDs Index: 1.63 1.5-2.3 cm/m2 LV Mass: 206.58 67-162/88-224 g LV Mass Index: 116.06 43-95/49-115 g/m2 LVOT Diam: 2.00 3.0+(-)1.3 cm Mitral Valve MV Pk E: 0.52 MV PK A: 0.81 MV Decel Time: 103.00 E/A: 0.60 E'Lateral: 6.09 E'Medial: 5.33 E/E' Med: 9.80 E/E' Lat: 8.60 PHT: 30.00 MVA PHT: 7.33 Decel [place]: 5.08 Aortic Valve AoV Pk Isai: 1.49 AoV Mn Isai: 0.89 AoV VTI: 0.27 AoV Pk Grad: 9.00 Aov Mn Grad: 4.00 EVANS Cont.VTI: 1.99 LVOT LVOT Pk Isai: 0.93 LVOT Mn Isai: 0.59 LVOT VTI: 0.17 LVOT Pk Grad: 3.00 LVOT Mn Grad: 2.00 LVOT Diam: 2.00 LVOT Area: 3.14 Diastolic Function MV Pk E: 0.52 MV Pk A: 0.81 E/A: 0.60 E'Medial: 5.33 E/E' Med: 9.80 E' Laterial: 6.09 E/E' Lat: 8.60 Right Ventricle TAPSE (mm): 20.80 TVS' Isai: 12.10 Tricuspid Valve TR Pk Isai: 1.96 TR Pk Grad: 15.00 RA Press: 3.00 RVSP: 18.00 Great Vessels Aorta Ao Root-2D: 3.00 2.0-3.7 cm Ao Asc: 2.90 2.1-3.4 cm Pulmonary Valve PV Pk Isai: 1.02 Peak PV Grad: 4.00 Updated in Other Vendor System with Status of Final Francis Frank MD electronically signed on 01/10/2022 11:31:39 AM with status of Final
--- NOTE | 2022-01-10 07:24 | PC.NURSE ---
pt is a/o x 4 no sob/george noted lungs - cta. speaks in full sentences. heart sounds - regular. abd soft non-tender.bs = x 4 quads. no edema noted. denies any pain/disc. pt aware of plan of care.
[2022-01-10 07:35] VITALS: BP 163/96; PULSE 119; RESP 25; TEMP 36.9; O2SAT 96
--- NOTE | 2022-01-10 08:59 | P.CONCA_ITS ---
History of Present Illness History of Present Illness Date of Service: 01/10/22 Requesting physician: Dylan Dorado Consult reason: other (Acute coronary syndrome) Chief complaint: Chest pain Narrative: I was consulted to see Lidia in cardiology consultation today because of chest pain with elevated troponin findings consistent with acute coronary syndrome. Patient is a pleasant 46-year-old woman with prior history of PTSD with general anxiety disorder as well as hypertension which is usually well controlled. She presented to the hospital 2 nights ago with acute onset chest discomfort. She has been having chest discomfort for last 2-3 days which has been on and off discomfort lasting for about less than 5 minutes. However when she presently emergency room couple of days ago she had more severe chest pressure/discomfort and came to the emergency room. She came to the Emergency was noted to have minimally elevated troponins but no significant EKG changes but was acutely hypertensive. Systolic blood pressure was in the 200 range. She said she has never had this high blood pressure. She was advise inpatient hospitalization at that time but she got very anxious and then signed out against medical advise. She then continued to have chest pressure which was milder intensity and was continuously present and went to the urgent care. There she was told that she should go to the emergency room again has a blood pressure min consistently elevated. She came to the emergency room yesterday and was given 1 sublingual nitroglycerin on route with improvement in her chest discomfort. She was subsequently given another sublingual nitroglycerin in the emergency room and her symptoms have completely dissipated and she has no more chest pain. Her repeat EKG a daily in her shows not Q-waves in inferior leads along with deep T-wave inversions consistent with RCA territory infarct. There is no ST elevation noted. She was started on IV heparin and was loaded with Plavix as she is allergic to aspirin. Her allergy to aspirin is throat swelling with generalized hives. She remains hypertensive and with sinus tachycardia. She has mild anxiety but she said this is not as bad as before. She has also received atorvastatin 80 mg on my consultation yesterday. Echo done briefly and preliminary shows basal inferior akinesis along with hypokinesis of the basal posterior wall. She has never had any prior cardiac issues. She is generally very functional and active. She also smoker about a pack a day but stopped smoking 2 days ago when she came to the emergency room. Review of Systems Constitutional: Constitutional: Reports no additional constitutional complaints Eyes: Eyes: Reports no additional eye complaints Cardiovascular: Cardiovascular: Reports chest pain, Denies syncope, Denies leg edema, Denies lightheadedness, Denies Loss of Consciousness, Denies palpitations and Denies dyspnea Respiratory: Respiratory: Reports no additional respiratory complaints and Denies dyspnea Gastrointestinal: Gastrointestinal: Reports no additional gastrointestinal complaints Musculoskeletal: Musculoskeletal: Reports no additional musculoskeletal complaints Neurologic: Reports system reviewed and no additional complaints, except as documented and Denies syncope Psychiatric: Psychiatric: Reports no additional psychiatric complaints Endocrine: Endocrine: Reports no additional endocrine complaints and Denies palpitations PMFSH Past Medical History Medical History Generalized anxiety disorder Hypertension Social History Social History Alcohol intake: current Alcohol intake frequency: a few times a month Patient Tobacco Use Status: Current everyday Tobacco user Advance Directives: No Advance Directives Information Provided: No Meds Allergies Allergy/AdvReac Type Severity Reaction Status Date / Time ibuprofen [From MOTRIN] Allergy Unknown SWELLING Verified 01/10/22 01:28 Motrin Allergy Unknown Unknown Uncoded 01/10/22 00:40 Active Medications: Current Medications Acetaminophen (Acetaminophen 325 Mg Tablet) 650 mg PO Q6H PRN PRN Reason: Pain, Mild (Pain Scale 1-3) Atorvastatin Calcium (Atorvastatin Calcium 80 Mg Tablet) 80 mg PO BEDTIME [facility] Buspirone HCl (Buspirone Hcl 10 Mg Tablet) 10 mg PO DAILY PRN PRN Reason: anxiety Buspirone HCl (Buspirone Hcl 10 Mg Tablet) 20 mg PO BEDTIME [facility] Last Admin: 01/10/22 01:26 Dose: 20 mg Cyanocobalamin (Cyanocobalamin (Vitamin B-12) 1,000 Mcg Tablet) 1,000 mcg PO DAILY [facility] Ferrous Sulfate (Ferrous Sulfate 324 Mg Tablet.Dr) 324 mg PO DAILY [facility] Heparin Sodium (Porcine) (Heparin Sodium,Porcine 5,000 Unit/Ml Vial) 4,900 unit IVPUSH PROTOCOL BOLUS PRN; Protocol PRN Reason: 80 unit/kg - Heparin Protocol Heparin Sodium (Porcine) (Heparin Sodium,Porcine 5,000 Unit/Ml Vial) 2,500 unit IVPUSH PROTOCOL BOLUS PRN; Protocol PRN Reason: 40 unit/kg - Heparin Protocol Heparin Sodium/Sodium Chloride (Heparin Sodium,Porcine/1/2ns) 25,000 unit in 250 mls @ 0 mls/hr IVCONT .Q0M [facility]; Protocol Last Admin: 01/10/22 00:11 Dose: 12 units/kg/hr, 7.4 mls/hr Melatonin (Melatonin 3 Mg Tablet) 6 mg PO BEDTIME PRN PRN Reason: Insomnia Metoprolol Succinate (Metoprolol Succinate Er 100 Mg Tab.Er.24h) 100 mg PO DAILY [facility]; Protocol Nitroglycerin (Nitroglycerin 0.4 Mg Tab.Subl) 0.4 mg SUBLINGUAL Q5MX3 PRN PRN Reason: Chest Pain Last Admin: 01/09/22 20:44 Dose: 0.4 mg Nitroglycerin (Nitroglycerin 2 % Oint 1 Gm Packet) 1 inch TRANSDERMA RQ6H WHILE AWAKE [facility] Risperidone (Risperidone 0.5 Mg Tablet) 0.5 mg PO DAILY [facility] Risperidone (Risperidone 0.5 Mg Tablet) 1.5 mg PO BEDTIME [facility] Last Admin: 01/10/22 01:26 Dose: 1.5 mg Sodium Chloride (0.9 % Sodium Chloride Flush 3 Ml Syringe) 3 ml IVFLUSH QSHIFT [facility] Last Admin: 01/10/22 01:39 Dose: Not Given Sumatriptan Succinate (Sumatriptan Succinate 25 Mg Tablet) 25 mg PO DAILY PRN PRN Reason: Migraine Headache Home Medications Medication Instructions Recorded Confirmed Last Taken Type acetaminophen 500 mg tablet 1 tab PO Q8H PRN pain 01/09/22 01/09/22 Unknown History buspirone 10 mg tablet 1 tab PO DAILY PRN anxiety 01/09/22 01/09/22 Unknown History buspirone 10 mg tablet 2 tab PO BEDTIME 01/09/22 01/09/22 01/08/22 History cyanocobalamin (vitamin B-12) 1 tab PO DAILY 01/09/22 01/09/22 Unknown History 1,000 mcg tablet ferrous sulfate 325 mg (65 mg 1 tab PO DAILY 01/09/22 01/09/22 Unknown History iron) tablet (FeroSul) metoprolol succinate 50 mg 50 mg PO DAILY 01/09/22 01/09/22 Unknown History tablet,extended release 24 hr risperidone 1 mg tablet 0.5 mg PO DAILY 01/09/22 01/09/22 Unknown History risperidone 1 mg tablet 1.5 mg PO BEDTIME 01/09/22 01/09/22 01/08/22 History sumatriptan succinate 25 mg tablet 25 mg PO DAILY PRN Migraine 01/09/22 01/09/22 Unknown History Headache Physical Exam Vital Signs: Vital Signs: Last Vital Signs Temp 98.5 F 01/10/22 07:35 Pulse 119 H 01/10/22 07:35 Resp 25 H 01/10/22 07:35 BP 163/96 H 01/10/22 07:35 Pulse Ox 96 01/10/22 07:35 O2 Del Method 01/10/22 02:47 BMI result Body Mass Index 26.5 Const: General: cooperative, comfortable, no acute distress, well developed, alert, awake and anxious Nutritional Appearance: well nourished Orientation/consciousness: patient oriented x3 HEENT: Head: Yes normocephalic and Yes atraumatic Neck: Neck: Yes trachea midline, Yes supple and Yes no JVD Chest: Chest palpation & inspection: normal inspection of the chest Resp: Effort & Inspection: normal respiratory effort Auscultation: clear to auscultation bilaterally Cardio: Jugular venous distension: no JVD Palpation: normal PMI Rate: regular rate Rhythm: regular rhythm Heart sounds: S1 normal heart sound present, S2 normal heart sound present, no click, no gallops, no murmurs and no rubs GI: Auscultation: normal bowel sounds Skin: General skin exam: no rashes or lesions noted Neuro: General: patient oriented x3 and no focal motor deficits Extrem: General: Yes no clubbing, cyanosis or edema Psych: Appearance: grossly normal Affect: Anxious affect present Objective Labs and Meds Result diagrams: 01/10/22 04:28 01/09/22 19:53 Lab results: Laboratory Results - last 24 hr 01/09/22 01/09/22 01/09/22 19:53 19:53 19:53 WBC 8.2 RBC 4.26 Hgb 11.7 L Hct 36.0 L MCV 84.5 MCH 27.5 MCHC 32.5 RDW 13.1 Plt Count 232 MPV 9.3 L Immature Gran % (Auto) 0.2 Neut % (Auto) 53.5 Lymph % (Auto) 33.0 Stewart % (Auto) 9.5 Eos % (Auto) 3.2 Baso % (Auto) 0.6 Lymph # (Auto) 2.7 Stewart # (Auto) 0.8 Eos # (Auto) 0.3 Baso # (Auto) 0.1 Abs Immat Gran (auto) 0.02 Absolute Neuts (auto) 4.4 Absolute Nucleated RBC 0.000 Nucleated RBC % (auto) 0.0 PT INR APTT aPTT Heparin Protocol D-Dimer High Sensitivty Sodium 141 Potassium 3.7 Chloride 109 H Carbon Dioxide 22 Anion Gap 14 BUN 9 Creatinine 0.74 Estim Creat Clear Calc 96.7 Estimated GFR > 60 Random Glucose 118 H Calcium 8.9 Total Bilirubin 0.4 AST 16 ALT 18 Alkaline Phosphatase 74 Troponin I High Sens Total Protein 7.4 Albumin 4.2 Triglycerides Cholesterol LDL Cholesterol, Calc HDL Cholesterol Beta HCG, Quant < 2 COVID-19 (MARY) Negative COVID-19 Clin Com See Note 01/09/22 01/09/22 01/09/22 19:53 19:53 21:47 WBC 9.3 RBC 4.16 L Hgb 11.5 L Hct 34.7 L MCV 83.4 MCH 27.6 MCHC 33.1 RDW 13.1 Plt Count 254 MPV 9.5 Immature Gran % (Auto) Neut % (Auto) Lymph % (Auto) Stewart % (Auto) Eos % (Auto) Baso % (Auto) Lymph # (Auto) Stewart # (Auto) Eos # (Auto) Baso # (Auto) Abs Immat Gran (auto) Absolute Neuts (auto) Absolute Nucleated RBC 0.000 Nucleated RBC % (auto) 0.0 PT INR APTT aPTT Heparin Protocol D-Dimer High Sensitivty 243 Sodium Potassium Chloride Carbon Dioxide Anion Gap BUN Creatinine Estim Creat Clear Calc Estimated GFR Random Glucose Calcium Total Bilirubin AST ALT Alkaline Phosphatase Troponin I High Sens 210.8 H* D Total Protein Albumin Triglycerides Cholesterol LDL Cholesterol, Calc HDL Cholesterol Beta HCG, Quant COVID-19 (MARY) COVID-19 Knowable 01/09/22 01/09/22 01/09/22 21:47 21:47 22:51 WBC RBC Hgb Hct MCV MCH MCHC RDW Plt Count MPV Immature Gran % (Auto) Neut % (Auto) Lymph % (Auto) Stewart % (Auto) Eos % (Auto) Baso % (Auto) Lymph # (Auto) Stewart # (Auto) Eos # (Auto) Baso # (Auto) Abs Immat Gran (auto) Absolute Neuts (auto) Absolute Nucleated RBC Nucleated RBC % (auto) PT 12.3 INR 1.1 APTT aPTT Heparin Protocol 110.7 H* 102.2 H D-Dimer High Sensitivty Sodium Potassium Chloride Carbon Dioxide Anion Gap BUN Creatinine Estim Creat Clear Calc Estimated GFR Random Glucose Calcium Total Bilirubin AST ALT Alkaline Phosphatase Troponin I High Sens 222.1 H* Total Protein Albumin Triglycerides Cholesterol LDL Cholesterol, Calc HDL Cholesterol Beta HCG, Quant COVID-19 (MARY) COVID-19 Knowable 01/09/22 01/09/22 01/09/22 22:51 22:51 22:51 WBC 9.8 RBC 4.13 L Hgb 11.4 L Hct 34.2 L MCV 82.8 MCH 27.6 MCHC 33.3 RDW 13.0 Plt Count 241 MPV 9.6 Immature Gran % (Auto) Neut % (Auto) Lymph % (Auto) Stewart % (Auto) Eos % (Auto) Baso % (Auto) Lymph # (Auto) Stewart # (Auto) Eos # (Auto) Baso # (Auto) Abs Immat Gran (auto) Absolute Neuts (auto) Absolute Nucleated RBC 0.000 Nucleated RBC % (auto) 0.0 PT INR APTT 41.1 H aPTT Heparin Protocol D-Dimer High Sensitivty Sodium Potassium Chloride Carbon Dioxide Anion Gap BUN Creatinine Estim Creat Clear Calc Estimated GFR Random Glucose Calcium Total Bilirubin AST ALT Alkaline Phosphatase Troponin I High Sens Total Protein Albumin Triglycerides 62 Cholesterol 183 LDL Cholesterol, Calc 124 HDL Cholesterol 47 Beta HCG, Quant COVID-19 (MARY) COVID-[employer] 01/10/22 01/10/22 01/10/22 04:28 04:28 04:28 WBC 10.8 RBC 4.09 L Hgb 11.6 L Hct 34.6 L MCV 84.6 MCH 28.4 MCHC 33.5 RDW 13.0 Plt Count 238 MPV 10.1 Immature Gran % (Auto) Neut % (Auto) Lymph % (Auto) Stewart % (Auto) Eos % (Auto) Baso % (Auto) Lymph # (Auto) Stewart # (Auto) Eos # (Auto) Baso # (Auto) Abs Immat Gran (auto) Absolute Neuts (auto) Absolute Nucleated RBC 0.000 Nucleated RBC % (auto) 0.0 PT 11.9 INR 1.0 APTT aPTT Heparin Protocol D-Dimer High Sensitivty Sodium Potassium Chloride Carbon Dioxide Anion Gap BUN Creatinine Estim Creat Clear Calc Estimated GFR Random Glucose Calcium Total Bilirubin AST ALT Alkaline Phosphatase Troponin I High Sens 228.7 H* Total Protein Albumin Triglycerides Cholesterol LDL Cholesterol, Calc HDL Cholesterol Beta HCG, Quant COVID-19 (MARY) COVID-19 Clin Com 01/10/22 04:28 WBC RBC Hgb Hct MCV MCH MCHC RDW Plt Count MPV Immature Gran % (Auto) Neut % (Auto) Lymph % (Auto) Stewart % (Auto) Eos % (Auto) Baso % (Auto) Lymph # (Auto) Stewart # (Auto) Eos # (Auto) Baso # (Auto) Abs Immat Gran (auto) Absolute Neuts (auto) Absolute Nucleated RBC Nucleated RBC % (auto) PT INR APTT 43.2 H aPTT Heparin Protocol D-Dimer High Sensitivty Sodium Potassium Chloride Carbon Dioxide Anion Gap BUN Creatinine Estim Creat Clear Calc Estimated GFR Random Glucose Calcium Total Bilirubin AST ALT Alkaline Phosphatase Troponin I High Sens Total Protein Albumin Triglycerides Cholesterol LDL Cholesterol, Calc HDL Cholesterol Beta HCG, Quant COVID-19 (MARY) COVID-19 Clin Com First EKG shows normal sinus rhythm with no acute ST T wave changes Second EKG on 2nd presentation shows normal sinus rhythm with Q-waves in inferior leads with deep T-wave inversions P Imaging Radiologist's impression: Impressions Chest X-Ray 01/09/22 20:30 IMPRESSION: Unremarkable examination. Chest CTA 01/09/22 21:05 IMPRESSION: No evidence for pulmonary emboli. VTE: Negative Assessment and Plan (1) ACS (acute coronary syndrome): Status: Acute Patient presents with acute coronary syndrome with high risk features with Q- waves in inferior leads with deep T-wave inversions but no elevation in the ST segments. Echocardiogram preliminary shows basal inferior and basal inferolateral wall motion abnormality. However she does not have a significant troponin bump which is usually suggestive of stunned myocardium hopefully. She is currently well treated and chest pain-free. No arrhythmias no signs of heart failure. She requires cardiac catheterization. We discussed the risks, benefits, alternatives and need for cardiac catheterization. She understands and agrees. I have discussed the case with hospitalist team at [facility] of accepted her and will be transferred later to the [facility] for cardiac catheterization. Patient is agreeable. Continue IV heparin. Continue Plavix 75 mg daily. Continue statins 80 mg daily. She remains hypertensive and therefore will start on nitro paste 1 in q.6 hours. Will also increase her metoprolol to 100 mg daily. Antianxiety therapy for her given that she has high anxiety state. Her main issue is going to be aspirin allergy. Will do a diagnostic angiogram and determine if she requires stenting and may require desensitization with aspirin therapy or maybe monotherapy. All this findings were discussed with the patient. She understands and agrees. Will follow up with her as outpatient after discharge from [facility]. Greater than 40 minutes was spent in managing her care. Procedures Date of Service Date of Service: 01/10/22
[2022-01-10 09:00] LABS: Prothrombin Time 11.6 SEC (10.0-13.1)
--- NOTE | 2022-01-10 09:01 | PC.NURSE ---
pt had bedside echocardiogram done, dr. gonzalez at bedside pt aware of plan of care.
--- NOTE | 2022-01-10 09:09 | PC.NURSE ---
dr. langford at bedside pt aware of plan of care for transfer to [facility] [place] later today
[2022-01-10 09:10] VITALS: BP 158/84; PULSE 107; RESP 22; O2SAT 95
[2022-01-10] MEDS: risperiDONE 0.5 MG TABLET PO (09:13)
[2022-01-10] MEDS: Metoprolol Succinate ER 100 MG TAB.ER.24H PO (09:13)
[2022-01-10] MEDS: Ferrous Sulfate 324 MG TABLET.DR PO (09:14)
[2022-01-10] MEDS: Cyanocobalamin (Vitamin B-12) 1,000 MCG TABLET 1000 MCG PO (09:14)
[2022-01-10] MEDS: Nitroglycerin 2 % Oint 1 GM Packet 1 INCH TRANSDERMA (09:17)
[2022-01-10] MEDS: 0.9 % Sodium Chloride Flush 3 ML SYRINGE IVFLUSH (09:19)
--- NOTE | 2022-01-10 09:50 | MHC.CM.PN ---
met with pt who lives with her she is covid vax x 2 may need a ride home when dcd she had no previous servcies. dc plan home no servceis
--- NOTE | 2022-01-10 09:56 | PM.DS ---
DS: Providers Provider Date of Service: 01/10/22 Date of admission: 01/09/22 21:59 Primary care physician: Unknown Physician Consults: 01/09/22 21:03 Consult to Cardiology Stat Consulting Provider: Francis Frank Reason for consultation: NSTEMI ? DS: Diagnosis Discharge Diagnosis (1) ACS (acute coronary syndrome): Status: Acute (2) Non-ST elevation DE (NSTEMI): Status: Acute DS: Summary Hospital Course Hospital Course: HPI from admission H&P: 'This is a 46-year-old female with a pertinent history of generalized anxiety disorder, essential hypertension who presents to the emergency department for evaluation of chest discomfort.? Patient states chest discomfort is substernal, radiating to the jaw, associated with nausea and sweating and lasts 5-10 minutes.? It has been ongoing for the last 2 days.? Worse with ambulation/climbing stairs and better with rest.? Patient came to the ER yesterday with similar complaints but left against medical advice.? She experienced similar chest discomfort when she was climbing stairs and hence presented for further evaluation.? In the emergency department, patient states her chest discomfort resolved with nitroglycerin sublingual.? No history of ACS or similar complaints in the past.? Patient denies any trauma/fall and does endorse that the chest discomfort is sometimes reproducible with palpation.? No fever, chills, palpitations, shortness of breath, abdominal discomfort, changes in urinary or bowel habits In the emergency department, troponin was found to be elevated and EKG was with new ST depression in lead III.? Cardiology was consulted who recommended admission. Hospital Course: Patient was started on iv heparin drip, bb, statin. She has an allergy to aspirin and was loaded with plavix. She was evaluated by cardiology who recommended transfer to [facility] for urgent cardiac cath. She is chest pain free at this time. A bedside echo has bene completed prior to transfer but is pending official read. Per cardiology -- prelim echo shows basal inferior and basal inferolateral wall motion abnormalities. Her HS-trop I are flat in the 200 range. EKG shows q-waves in the inteferior leads with deep T wave inversions. Pt is agreeable on transfer. Final Discharge diagnosis: 1. NSTEMI 2. Uncontrolled HTN 3. Generalized anxiety disorder 4. Aspirin allergy Time Spent with Patient Time attestation: Total time spent providing and/or coordinating discharge services: Discharge coordination time: Greater than 30 minutes Quality: Safe Use of Opioids Does Pt have an Active Cancer Diagnosis on the Problem List?: No Quality: Stroke Does the patient have a stroke diagnosis?: No Physical Exam Vital Signs: Vital Signs: Last Vital Signs Temp 98.5 F 01/10/22 07:35 Pulse 107 H 01/10/22 09:10 Resp 22 H 01/10/22 09:10 BP 158/84 H 01/10/22 09:10 Pulse Ox 95 01/10/22 09:10 O2 Del Method 01/10/22 09:10 BMI result Body Mass Index 26.5 Const: Other: General - no acute distress, appears comfortable Cardiovascular - regular rate and rhythm, S1-S2 Lungs - normal respiratory effort, clear to auscultation bilaterally, no wheezing Abdomen - soft, nontender, no rebound or guarding Extremities - no edema bilaterally Neuro - awake and alert, no focal deficits DS: Data Data Completed and Pending Labs on day of discharge: Laboratory Results - last 24 hr 01/09/22 01/09/22 01/09/22 19:53 19:53 19:53 WBC 8.2 RBC 4.26 Hgb 11.7 L Hct 36.0 L MCV 84.5 MCH 27.5 MCHC 32.5 RDW 13.1 Plt Count 232 MPV 9.3 L Immature Gran % (Auto) 0.2 Neut % (Auto) 53.5 Lymph % (Auto) 33.0 [place] % (Auto) 9.5 Eos % (Auto) 3.2 Baso % (Auto) 0.6 Lymph # (Auto) 2.7 [place] # (Auto) 0.8 Eos # (Auto) 0.3 Baso # (Auto) 0.1 Abs Immat Gran (auto) 0.02 Absolute Neuts (auto) 4.4 Absolute Nucleated RBC 0.000 Nucleated RBC % (auto) 0.0 PT INR APTT aPTT Heparin Protocol D-Dimer High Sensitivty Sodium 141 Potassium 3.7 Chloride 109 H Carbon Dioxide 22 Anion Gap 14 BUN 9 Creatinine 0.74 Estim Creat Clear Calc 96.7 Estimated GFR > 60 Random Glucose 118 H Calcium 8.9 Total Bilirubin 0.4 AST 16 ALT 18 Alkaline Phosphatase 74 Troponin I High Sens Total Protein 7.4 Albumin 4.2 Triglycerides Cholesterol LDL Cholesterol, Calc HDL Cholesterol Beta HCG, Quant < 2 COVID-19 (MARY) Negative COVID-19 Clin Com See Note 01/09/22 01/09/22 01/09/22 19:53 19:53 21:47 WBC 9.3 RBC 4.16 L Hgb 11.5 L Hct 34.7 L MCV 83.4 MCH 27.6 MCHC 33.1 RDW 13.1 Plt Count 254 MPV 9.5 Immature Gran % (Auto) Neut % (Auto) Lymph % (Auto) [place] % (Auto) Eos % (Auto) Baso % (Auto) Lymph # (Auto) [place] # (Auto) Eos # (Auto) Baso # (Auto) Abs Immat Gran (auto) Absolute Neuts (auto) Absolute Nucleated RBC 0.000 Nucleated RBC % (auto) 0.0 PT INR APTT aPTT Heparin Protocol D-Dimer High Sensitivty 243 Sodium Potassium Chloride Carbon Dioxide Anion Gap BUN Creatinine Estim Creat Clear Calc Estimated GFR Random Glucose Calcium Total Bilirubin AST ALT Alkaline Phosphatase Troponin I High Sens 210.8 H* D Total Protein Albumin Triglycerides Cholesterol LDL Cholesterol, Calc HDL Cholesterol Beta HCG, Quant COVID-19 (MARY) COVID-[employer] 01/09/22 01/09/22 01/09/22 21:47 21:47 22:51 WBC RBC Hgb Hct MCV MCH MCHC RDW Plt Count MPV Immature Gran % (Auto) Neut % (Auto) Lymph % (Auto) [place] % (Auto) Eos % (Auto) Baso % (Auto) Lymph # (Auto) [place] # (Auto) Eos # (Auto) Baso # (Auto) Abs Immat Gran (auto) Absolute Neuts (auto) Absolute Nucleated RBC Nucleated RBC % (auto) PT 12.3 INR 1.1 APTT aPTT Heparin Protocol 110.7 H* 102.2 H D-Dimer High Sensitivty Sodium Potassium Chloride Carbon Dioxide Anion Gap BUN Creatinine Estim Creat Clear Calc Estimated GFR Random Glucose Calcium Total Bilirubin AST ALT Alkaline Phosphatase Troponin I High Sens 222.1 H* Total Protein Albumin Triglycerides Cholesterol LDL Cholesterol, Calc HDL Cholesterol Beta HCG, Quant COVID-19 (MARY) COVID-19 Clin [facility] 01/09/22 01/09/22 01/09/22 22:51 22:51 22:51 WBC 9.8 RBC 4.13 L Hgb 11.4 L Hct 34.2 L MCV 82.8 MCH 27.6 MCHC 33.3 RDW 13.0 Plt Count 241 MPV 9.6 Immature Gran % (Auto) Neut % (Auto) Lymph % (Auto) [place] % (Auto) Eos % (Auto) Baso % (Auto) Lymph # (Auto) [place] # (Auto) Eos # (Auto) Baso # (Auto) Abs Immat Gran (auto) Absolute Neuts (auto) Absolute Nucleated RBC 0.000 Nucleated RBC % (auto) 0.0 PT INR APTT 41.1 H aPTT Heparin Protocol D-Dimer High Sensitivty Sodium Potassium Chloride Carbon Dioxide Anion Gap BUN Creatinine Estim Creat Clear Calc Estimated GFR Random Glucose Calcium Total Bilirubin AST ALT Alkaline Phosphatase Troponin I High Sens Total Protein Albumin Triglycerides 62 Cholesterol 183 LDL Cholesterol, Calc 124 HDL Cholesterol 47 Beta HCG, Quant COVID-19 (MARY) [employer] 01/10/22 01/10/22 01/10/22 04:28 04:28 04:28 WBC 10.8 RBC 4.09 L Hgb 11.6 L Hct 34.6 L MCV 84.6 MCH 28.4 MCHC 33.5 RDW 13.0 Plt Count 238 MPV 10.1 Immature Gran % (Auto) Neut % (Auto) Lymph % (Auto) [place] % (Auto) Eos % (Auto) Baso % (Auto) Lymph # (Auto) [place] # (Auto) Eos # (Auto) Baso # (Auto) Abs Immat Gran (auto) Absolute Neuts (auto) Absolute Nucleated RBC 0.000 Nucleated RBC % (auto) 0.0 PT 11.9 INR 1.0 APTT aPTT Heparin Protocol D-Dimer High Sensitivty Sodium Potassium Chloride Carbon Dioxide Anion Gap BUN Creatinine Estim Creat Clear Calc Estimated GFR Random Glucose Calcium Total Bilirubin AST ALT Alkaline Phosphatase Troponin I High Sens 228.7 H* Total Protein Albumin Triglycerides Cholesterol LDL Cholesterol, Calc HDL Cholesterol Beta HCG, Quant COVID-19 ([facility]) [employer] 01/10/22 01/10/22 04:28 08:36 WBC RBC Hgb Hct MCV MCH MCHC RDW Plt Count MPV Immature Gran % (Auto) Neut % (Auto) Lymph % (Auto) [place] % (Auto) Eos % (Auto) Baso % (Auto) Lymph # (Auto) [place] # (Auto) Eos # (Auto) Baso # (Auto) Abs Immat Gran (auto) Absolute Neuts (auto) Absolute Nucleated RBC Nucleated RBC % (auto) PT 11.6 INR 1.0 APTT 43.2 H aPTT Heparin Protocol D-Dimer High Sensitivty Sodium Potassium Chloride Carbon Dioxide Anion Gap BUN Creatinine Estim Creat Clear Calc Estimated GFR Random Glucose Calcium Total Bilirubin AST ALT Alkaline Phosphatase Troponin I High Sens Total Protein Albumin Triglycerides Cholesterol LDL Cholesterol, Calc HDL Cholesterol Beta HCG, Quant COVID-19 (MARY) COVID-19 Clin Com Discharge Plan Discharge Anticipated Discharge Date/Time: 01/10/22 09:55 Patient Disposition: Xfer Acute Care Hospital Discharge Diagnosis: NSTEMI Referrals: Physician,Unknown J [Primary Care Provider] - 1 Week Discharge Medications: New atorvastatin 80 mg Tablet 80 mg PO BEDTIME Qty: 30 0RF metoprolol succinate 100 mg Tablet Extended Release 24 Hr 100 mg PO DAILY Qty: 30 0RF Protocol: Hold for SBP/HR < HOLD for SBP < : 90 HOLD for HR < : 60 Nitro-Bid 2 % Ointment 1 inch transdermal RQ6H WHILE AWAKE Qty: 1 0RF heparin (porcine) 5,000 unit/mL Solution 4,900 unit IVPUSH PROTOCOL BOLUS PRN (Reason: 80 Unit/Kg - Heparin Protocol) Qty: 1 0RF heparin (porcine) 5,000 unit/mL Solution 2,500 unit IVPUSH PROTOCOL BOLUS PRN (Reason: 40 Unit/Kg - Heparin Protocol) Qty: 1 0RF heparin(porcine) in 0.45% NaCl 25,000 unit/250 mL Parenteral Solution 25,000 unit continuous IV infusion .Q0M Qty: 1 0RF clopidogrel [Plavix] 75 mg tablet 75 mg PO DAILY Qty: 30 0RF Continued sumatriptan succinate 25 mg tablet 25 mg PO DAILY PRN (Reason: Migraine Headache) cyanocobalamin (vitamin B-12) 1,000 mcg tablet 1 tab PO DAILY acetaminophen 500 mg tablet 1 tab PO Q8H PRN (Reason: pain) ferrous sulfate [FeroSul] 325 mg (65 mg iron) tablet 1 tab PO DAILY buspirone 10 mg tablet 2 tab PO BEDTIME risperidone 1 mg tablet 0.5 mg PO DAILY buspirone 10 mg tablet 1 tab PO DAILY PRN (Reason: anxiety) risperidone 1 mg tablet 1.5 mg PO BEDTIME Discontinued metoprolol succinate 50 mg tablet extended release 24 hr 50 mg PO DAILY Discharge Orders: Discharge Order (Routine); Ordered 01/10/22 Ordered By: Ryan Bai Diet: NPO except meds Activity on Discharge: Bedrest Stand Alone Forms: Patient Portal Discharge page Care Plan Goals: Transfer to [facility] for cardiac cath Health Concerns: ACS/NSTEMI Plan of Treatment: Transfer to [facility] for cardiac cath Assessment: See d/c summary
--- NOTE | 2022-01-10 10:00 | MHC.CM.PN ---
pt to be transferred to bs/cardiac cath
--- NOTE | 2022-01-10 10:36 | PC.NURSE ---
@ 1034am CALL RECEIVED FROM [facility] OF THE [facility] PT TX LINE WITH ROOM ASSIGNMENT M[facility] 7, ROOM 7133 RN TO RN: [phone] KIM
[2022-01-10 10:57] VITALS: BP 122/69; PULSE 122; RESP 26; TEMP 36.7; O2SAT 95
[2022-01-10] MEDS: Clopidogrel Bisulfate 75 MG TABLET PO (10:59)
--- NOTE | 2022-01-10 11:17 | PC.NURSE ---
rn to rn report given to naif at [facility]. pt to go to [place] [address], room [id number] ([phone]) accepting md: bre. pt aware of plan of care.
== END 2022-01-10 11:49 | disposition short-term general hospital (02) | DRG 190 ==
LOC: HO.ED 20:47 → HO.EDOVER 22:27
PROVIDERS: Physician Assistant; Admitting Provider Student in an Organized Health Care Education/Training Program; Emergency Provider Student in an Organized Health Care Education/Training Program; PCP Internal Medicine Geriatric Medicine; Visit Provider Family Medicine
DX: I21.4 Non-ST elevation (NSTEMI) myocardial infarction (principal); F41.1 Generalized anxiety disorder; I10 Essential (primary) hypertension; Z20.822 Contact with and (suspected) exposure to COVID-19; Z88.6 Allergy status to analgesic agent; Z79.02 Long term (current) use of antithrombotics/antiplatelets; Z79.899 Other long term (current) drug therapy
CPT/HCPCS: 36415; 71045; 71275; 80053; 80061; 81003; 83690; 84484; 84702; 85025; 85027; 85379; 85610; 85730; 87635; 93005; 93306; 99219; 99285; Q9967

== ENCOUNTER → 2022-02-03 12:35 | Outpatient (BNVA) | payer MEDICAID, SELFPAY | PROVIDERS: PCP Internal Medicine Geriatric Medicine; Referring Provider Internal Medicine Geriatric Medicine; Visit Provider Internal Medicine Cardiovascular Disease | DX: I25.42 Coronary artery dissection (principal) | CPT/HCPCS: 99212 ==

== ENCOUNTER → 2022-02-14 14:45 | Outpatient (BNVA) | payer MEDICAID, SELFPAY | PROVIDERS: PCP Internal Medicine Geriatric Medicine; Visit Provider Nurse Practitioner Family | DX: I25.42 Coronary artery dissection (principal); R07.9 Chest pain, unspecified; Z98.890 Other specified postprocedural states | CPT/HCPCS: 99212 ==

== ENCOUNTER → 2022-02-28 12:48 | Outpatient (BNVA) | payer MEDICAID, SELFPAY | PROVIDERS: PCP Internal Medicine Geriatric Medicine; Referring Provider Internal Medicine Geriatric Medicine; Visit Provider Nurse Practitioner Family | DX: R07.9 Chest pain, unspecified (principal); I25.42 Coronary artery dissection; I10 Essential (primary) hypertension; F41.1 Generalized anxiety disorder; F17.210 Nicotine dependence, cigarettes, uncomplicated; Z98.890 Other specified postprocedural states | CPT/HCPCS: 93005; 99212 ==

== ENCOUNTER → 2022-03-10 10:10 | Outpatient (REF) | payer MEDICAID, SELFPAY ==
--- NOTE | 2022-03-10 10:29 | CA_ITS ---
Transthoracic Echocardiogram Patient (Last, First, Middle): Lidia Harley, Gender: Female Date of : 1975 Age: 46 Procedure Date: 03/10/2022 Procedure Type: Transthoracic Echocardiogram Location: OP Height: 152.4 cm Weight: 81.65 kg BSA: 1.78 m2 Heart Rate: 68 bpm BP: 118 / 54 mmHg Poultry Offal Icer: SB Referring MD: Desiree Ling [employer]ENCH PROFESSOR-C Symptoms: R07.9 - Chest pain, unspecified, coronary artery dissection I25.42 Study Quality: Adequate w contrast ECG Rhythm: Sinus Conclusions: - Limited echo. - Normal left ventricular size and systolic function. The visually estimated ejection fraction is between 55-60%. There is no evidence of regional wall motion abnormalities. Findings Procedure Information Contrast agent, definity, is being given per protocol without apparent complications. Left Ventricle Normal left ventricular size and systolic function. The visually estimated ejection fraction is between 55-60%. There is no evidence of regional wall motion abnormalities. Right Ventricle Normal right ventricular cavity size and systolic function. Pericardium/Pleural There is no evidence of pericardial effusion. Measurements 2D Linear Measurements IVSd: 0.95 0.6-0.9/0.6-1.0 cm LVIDd: 4.82 3.9-5.3/4.2-5.9 cm LVIDd Index: 2.71 2.4-3.2/2.2-3.1 cm/m2 LVIDs: 3.35 2.0-3.6 cm LVPWd: 1.11 0.7-1.1 cm LV Mass: 221.49 67-162/88-224 g LV Mass Index: 124.43 43-95/49-115 g/m2 LVOT Diam: 2.00 3.0+(-)1.3 cm 2D Systolic Function EF 4C: 51.70 >55% EF 2C: 51.50 >55% EF BiP: 51.20 >55% LVOT LVOT Pk Isai: 0.99 LVOT Mn Isai: 0.74 LVOT VTI: 0.21 LVOT Pk Grad: 4.00 LVOT Mn Grad: 2.00 LVOT Diam: 2.00 LVOT Area: 3.14 Updated in Other Vendor System with Status of Final Thony Jolley MD electronically signed on 03/15/2022 1:05:12 PM with status of Final
== END ==
LOC: HO.CARD 10:10
PROVIDERS: Visit Provider Nurse Practitioner Family
DX: R07.9 Chest pain, unspecified (principal); I25.42 Coronary artery dissection; Z98.890 Other specified postprocedural states
CPT/HCPCS: 93308; Q9957

== ENCOUNTER 2022-03-23 12:51 | Emergency (ER) | payer MEDICAID, SELFPAY ==
--- NOTE | ~2022-03-23 | XR_ITS ---
EXAMINATION: XR CHEST CLINICAL INFORMATION: Chest pain COMPARISON: January 09, 2022 TECHNIQUE: 2 views of the chest were obtained. FINDINGS: No significant abnormality is noted involving the heart, lungs, mediastinum, bony thorax or soft tissues. XR/XR chest 2V IMPRESSION: No acute disease.
--- NOTE | 2022-03-23 13:52 | ED_ITS ---
HPI - General Adult General Source: patient <Sejal Quach NP - Last Filed: 03/24/22 01:43> Mode of arrival: ambulatory <Sejal Quach NP - Last Filed: 03/24/22 01:43> Limitations: no limitations <Sejal Quach NP - Last Filed: 03/24/22 01:43> History of Present Illness HPI narrative: 46-year-old female presents with 1 day of chest pain with dizziness. Stat es that the chest pain started at rest, it is sharp with pressure without radiation and no change with exertion. He stated when the chest pain happened she did have a little bit of dizziness and had some blurred vision. Her blood vision has resolved, and is no longer dizzy. Patient has concerns because of this chest pain. Patient states to have no chest pain at this time. <Sejal Quach NP - Last Filed: 03/24/22 01:43> Onset (ago): day(s) (1) <SAEID Cantor Last Filed: 03/24/22 01:43> Location: chest <Sejal Quach NP - Last Filed: 03/24/22 01:43> Radiation: non-radiation <Sejal Quach NP - Last Filed: 03/24/22 01:43> Severity: mild <Sejal Quach NP - Last Filed: 03/24/22 01:43> Severity scale (1-10): 4 <Sejal Quach NP - Last Filed: 03/24/22 01:43> Quality: stabbing <Sejal Quach NP - Last Filed: 03/24/22 01:43> Pain Consistency: intermittent and now resolved <SAEID Cantor Last Filed: 03/24/22 01:43> Relieving factors: none <SAEID Cantor Last Filed: 03/24/22 01:43> Associated symptoms: other (Dizziness) <Sejal Quach NP - Last Filed: 03/24/22 01:43> Treatments prior to arrival: none <SAEID Cantor Last Filed: 03/24/22 01:43> Related Data Home medications: Home Medications Medication Instructions Recorded Confirmed risperidone 1 mg tablet 1.5 mg PO BEDTIME 01/09/22 02/28/22 sumatriptan succinate 25 mg tablet 25 mg PO DAILY PRN Migraine 01/09/22 02/28/22 Headache buspirone 10 mg tablet 20 mg PO BEDTIME 02/03/22 02/28/22 rosuvastatin 40 mg tablet (Crestor) 40 mg PO DAILY 02/03/22 02/28/22 acetaminophen 500 mg tablet 500 mg PO Q8H PRN pain 02/14/22 02/28/22 cyanocobalamin (vitamin B-12) 1,000 mcg PO DAILY 02/14/22 02/28/22 1,000 mcg tablet ferrous sulfate 325 mg (65 mg 325 mg PO DAILY 02/14/22 02/28/22 iron) tablet (FeroSul) risperidone 1 mg tablet 0.5 mg PO QAM 02/14/22 02/28/22 Previous Rx's Medication Instructions Recorded clopidogrel 75 mg tablet (Plavix) 75 mg PO DAILY #30 tabs 01/10/22 metoprolol succinate 100 mg 150 mg PO DAILY 30 days #45 tabs 02/14/22 tablet,extended release 24 hr isosorbide mononitrate 60 mg 90 mg PO DAILY 90 days #135 tabs 02/27/22 tablet,extended release 24 hr ranolazine 500 mg tablet,extended 500 mg PO BID #60 tabs 02/28/22 release,12 hr (Ranexa) <LUDWIN Hayward- - Last Filed: 03/29/22 20:46> Allergies/adverse reactions: Allergies Allergy/AdvReac Type Severity Reaction Status Date / Time ibuprofen [From MOTRIN] Allergy Unknown SWELLING Verified 02/28/22 13:25 Motrin Allergy Unknown Unknown Uncoded 01/10/22 00:40 <LUDWIN Hayward- - Last Filed: 03/29/22 20:46> Review of Systems Review of Systems: Constitutional: No Fever, No Chills Cardiovascular: Positive sharp resolved Chest Pain, No SOB Respiratory: No Cough, No Dyspnea Gastrointestinal: No Nausea, No Vomiting, No Diarrhea, No abdominal Pain Genitourinary: No Dysuria, No Hematuria Musculoskeletal: No joint pain, No Myalgia Skin: No rash Neuro: No Weakness, No Numbness, No Paresthesias, No Loss of Consciousness, positive Dizziness, No Headache <Sejal Quach NP - Last Filed: 03/24/22 01:43> Yes all other systems are reviewed and are negative <Sejal Quach NP - Last Filed: 03/24/22 01:43> [facility] Past Medical History Attestation statement: The following information was validated with the patient. <Sejal Quach NP - Last Filed: 03/24/22 01:43> Source: old records reviewed <Sejal Quach NP - Last Filed: 03/24/22 01:43> Medical History: Medical History ACS (acute coronary syndrome) Chest pain Generalized anxiety disorder Hypertension Spontaneous dissection of coronary artery <SALLIE Hayward - Last Filed: 03/29/22 20:46> Family History Family History: Family History Mother Hypertension Breast cancer Father Cancer Hypertension Maternal Uncle Diabetes <SALLIE Hayward - Last Filed: 03/29/22 20:46> Social History Social History: Social History Alcohol intake: current Alcohol intake frequency: a few times a month Patient Tobacco Use Status: Current everyday Tobacco user Advance Directives: No service: No <SALLIE Hayward - Last Filed: 03/29/22 20:46> Physical Exam ED Vital Signs: Vital Signs - 24 hr 03/23/22 13:53 03/23/22 17:21 03/23/22 19:30 Temperature 98 F 98.1 F Pulse Rate 67 67 65 Respiratory Rate 19 18 14 Blood Pressure 149/117 H 142/60 H 142/72 H Pulse Oximetry 98 97 97 Oxygen Delivery Method Room Air Room Air Room Air BMI result Body Mass Index 35.2 <SALLIE Hayward - Last Filed: 03/29/22 20:46> Vital Signs - 24 hr 03/23/22 13:53 03/23/22 17:21 03/23/22 19:30 Temperature 98 F 98.1 F Pulse Rate 67 67 65 Respiratory Rate 19 18 14 Blood Pressure 149/117 H 142/60 H 142/72 H Pulse Oximetry 98 97 97 Oxygen Delivery Method Room Air Room Air Room Air BMI result Body Mass Index 35.2 <Sejal Quach NP - Last Filed: 03/24/22 01:43> Appearance: Alert. Oriented X3. No acute distress. Eyes: Pupils equal, round and reactive to light. ENT: Pharynx normal. Neck: Normal inspection. Neck supple. CVS: Normal heart rate and rhythm. Pulses normal. Respiratory: No respiratory distress. Breath sounds normal. Abdomen: Soft and nontender. Skin: Skin warm and dry. Normal skin color. Normal skin turgor. Extremities: No lower extremity edema. Gait balanced and coordinated. Neuro: No motor deficit. No sensory deficit. Cranial nerves 2-12 intact. <Sejal Quach NP - Last Filed: 03/24/22 01:43> Course Course Course Narrative: 03/23/2022 RME: 46-year-old female with past medical history of hypertension, chest pain, spontaneous dissection of coronary artery, status post cardiac catheterization is here for complaining of chest pain that started last night. Patient was admitted to [facility] 01/09/2022 with chest pain and had acute coronary syndrome and underwent cardiac catheterization at [facility] showing 2 vessel SCAD with obstruction lesion in the RCA. Patient was managed medically. Patient had several visits to her finished carpet inspector Dr. Frank and complained exertional chest discomfort and had her medications titrated. Patient denies SOB, palpitations, dizziness, presyncope, syncope, PND, orthopnea or edema. Patient reports that her symptoms started when she was doing chores. Will do troponin, CBC, BMP, chest x-ray. Patient is hemodynamically stable at this time. Charge nurse aware that patient needs to go in to ED. exam is negative for any acute processes. <LUDWIN Hayward-BC - Last Filed: 03/29/22 20:46> 03/23/2022 RME: 46-year-old female with past medical history of hypertension, chest pain, spontaneous dissection of coronary artery, status post cardiac catheterization is here for complaining of chest pain that started last night. Patient was admitted to [facility] 01/09/2022 with chest pain and had acute coronary syndrome and underwent cardiac catheterization at [facility] showing 2 vessel SCAD with obstruction lesion in the RCA. Patient was managed medically. Patient had several visits to her finished carpet inspector Dr. Frank and complained exertional chest discomfort and had her medications titrated. Patient denies SOB, palpitations, dizziness, presyncope, syncope, PND, orthopnea or edema. Patient reports that her symptoms started when she was doing chores. Will do troponin, CBC, BMP, chest x-ray. Patient is hemodynamically stable at this time. Charge nurse aware that patient needs to go in to ED. exam is negative for any acute processes. 17:31 review of labs that were ordered by provider in triage, indicates an H&H of 10.8/33.4, troponin is negative, chest x-ray is negative. EKG indicates normal sinus rhythm without indication of ST elevation or depression, no other abnormalities indicating ischemia noted in EKG. will add on BMP, COVID, and UA. Wells PE score is 0. 19:35 labs are negative. Plan of care is to discharge home with follow-up with primary care physician. Low likelihood of ACS at this time. Patient verbalized understanding of and agrees plan of care. Verbalized understanding of signs and symptoms indicating need for emergent intervention. <Sejal Quach NP - Last Filed: 03/24/22 01:43> Medical Decision Making Differential Diagnosis Differential Diagnoses: The differential diagnosis associated with the presentation includes <Sejal Quach NP - Last Filed: 03/24/22 01:43> ACS, pneumonia, muscle strain, pneumothorax, COVID, influenza, RSV <Sejal Quach NP - Last Filed: 03/24/22 01:43> Admission/Observation Consideration of admission/observation: Escalation of care including admission/observation considered <Sejal Quach NP - Last Filed: 03/24/22 01:43> If patient's values indicate ACS, or other acute findings will consider admission <Sejal Quach NP - Last Filed: 03/24/22 01:43> Lab Data MDM Lab Attestation statement: I reviewed the patient's lab results. <Sejal Quach NP - Last Filed: 03/24/22 01:43> Result Diagrams: 03/23/22 14:05 <SALLIE Hayward - Last Filed: 03/29/22 20:46> Labs: Lab Results 03/23/22 03/23/22 03/23/22 Range/Units 14:05 14:05 17:37 WBC 7.6 (4.8-10.8) X10*3/uL RBC 3.98 L (4.20-5.50) X10*6/uL Hgb 10.8 L (12.0-16.0) g/dl Hct 33.4 L (37.0-47.0) % MCV 83.9 (80.0-98.0) fL MCH 27.1 (27.0-33.0) pg MCHC 32.3 (31.0-35.0) g/dl RDW 13.2 (11.0-16.0) % Plt Count 318 D (160-400) X10*3/uL MPV 9.2 L (9.4-12.3) fL Immature Gran % (Auto) 0.3 (0.0-0.4) % Neut % (Auto) 52.2 (45-73) % Lymph % (Auto) 35.3 (20-40) % [place] % (Auto) 8.4 (2-11) % Eos % (Auto) 3.0 (0-4) % Baso % (Auto) 0.8 (0-2) % Lymph # (Auto) 2.7 (1.2-4.9) X10*3/uL [place] # (Auto) 0.6 (0.1-1.2) X10*3/uL Eos # (Auto) 0.2 (0.0-0.4) X10*3/uL Baso # (Auto) 0.1 (0.0-0.2) X10*3/uL Abs Immat Gran (auto) 0.02 (0.00-0.03) X10*3/uL Absolute Neuts (auto) 4.0 (2.0-8.3) x10*3/uL Absolute Nucleated RBC 0.000 (0.0-0.012) X10*3/uL Nucleated RBC % (auto) 0.0 (0.0-0.2) /100WBC Sodium (135-145) mmol/L Potassium (3.3-5.1) mmol/L Chloride (96-108) mmol/L Carbon Dioxide (22-29) mmol/L Anion Gap (12-20) BUN (9-16) mg/dL Creatinine (0.5-1.4) mg/dL Estim Creat Clear Calc Estimated GFR Random Glucose (60-115) mg/dL Calcium (8.4-10.2) mg/dL Troponin I High Sens < 3.5 (<3.5-17.0) ng/L Urine Color Urine Appearance Urine pH (5.0-9.0) Ur Specific [place] (1.005-1.025) Urine Protein (Neg-Trace) mg/dL Urine Glucose (UA) (Negative) mg/dL Urine Ketones (Negative) mg/dL Urine Blood (Negative) Urine Nitrite (Negative) Ur Leukocyte Esterase (Negative) Influenza Type A (PCR) NEGATIVE (Negative) Influenza Type B (PCR) NEGATIVE (Negative) RSV RNA Qual (PCR) NEGATIVE (Negative) SARS-CoV-2 RNA (RT-PCR) NEGATIVE (Negative) 03/23/22 03/23/22 Range/Units 17:40 19:32 WBC (4.8-10.8) X10*3/uL RBC (4.20-5.50) X10*6/uL Hgb (12.0-16.0) g/dl Hct (37.0-47.0) % MCV (80.0-98.0) fL MCH (27.0-33.0) pg MCHC (31.0-35.0) g/dl RDW (11.0-16.0) % Plt Count (160-400) X10*3/uL MPV (9.4-12.3) fL Immature Gran % (Auto) (0.0-0.4) % Neut % (Auto) (45-73) % Lymph % (Auto) (20-40) % [place] % (Auto) (2-11) % Eos % (Auto) (0-4) % Baso % (Auto) (0-2) % Lymph # (Auto) (1.2-4.9) X10*3/uL [place] # (Auto) (0.1-1.2) X10*3/uL Eos # (Auto) (0.0-0.4) X10*3/uL Baso # (Auto) (0.0-0.2) X10*3/uL Abs Immat Gran (auto) (0.00-0.03) X10*3/uL Absolute Neuts (auto) (2.0-8.3) x10*3/uL Absolute Nucleated RBC (0.0-0.012) X10*3/uL Nucleated RBC % (auto) (0.0-0.2) /100WBC Sodium 139 (135-145) mmol/L Potassium 4.0 (3.3-5.1) mmol/L Chloride 104 (96-108) mmol/L Carbon Dioxide 28 (22-29) mmol/L Anion Gap 11 L (12-20) BUN 12 (9-16) mg/dL Creatinine 0.75 (0.5-1.4) mg/dL Estim Creat Clear Calc 86.8 Estimated GFR > 60 Random Glucose 86 (60-115) mg/dL Calcium 9.2 (8.4-10.2) mg/dL Troponin I High Sens (<3.5-17.0) ng/L Urine Color Yellow Urine Appearance Clear Urine pH 6.0 (5.0-9.0) Ur Specific [place] 1.015 (1.005-1.025) Urine Protein Negative (Neg-Trace) mg/dL Urine Glucose (UA) Negative (Negative) mg/dL Urine Ketones Negative (Negative) mg/dL Urine Blood Negative (Negative) Urine Nitrite Negative (Negative) Ur Leukocyte Esterase Negative (Negative) Influenza Type A (PCR) (Negative) Influenza Type B (PCR) (Negative) RSV RNA Qual (PCR) (Negative) SARS-CoV-2 RNA (RT-PCR) (Negative) <Melani Conley, PAPER BALER- - Last Filed: 03/29/22 20:46> Lab Results 03/23/22 03/23/22 03/23/22 Range/Units 14:05 14:05 17:37 WBC 7.6 (4.8-10.8) X10*3/uL RBC 3.98 L (4.20-5.50) X10*6/uL Hgb 10.8 L (12.0-16.0) g/dl Hct 33.4 L (37.0-47.0) % MCV 83.9 (80.0-98.0) fL MCH 27.1 (27.0-33.0) pg MCHC 32.3 (31.0-35.0) g/dl RDW 13.2 (11.0-16.0) % Plt Count 318 D (160-400) X10*3/uL MPV 9.2 L (9.4-12.3) fL Immature Gran % (Auto) 0.3 (0.0-0.4) % Neut % (Auto) 52.2 (45-73) % Lymph % (Auto) 35.3 (20-40) % [place] % (Auto) 8.4 (2-11) % Eos % (Auto) 3.0 (0-4) % Baso % (Auto) 0.8 (0-2) % Lymph # (Auto) 2.7 (1.2-4.9) X10*3/uL [place] # (Auto) 0.6 (0.1-1.2) X10*3/uL Eos # (Auto) 0.2 (0.0-0.4) X10*3/uL Baso # (Auto) 0.1 (0.0-0.2) X10*3/uL Abs Immat Gran (auto) 0.02 (0.00-0.03) X10*3/uL Absolute Neuts (auto) 4.0 (2.0-8.3) x10*3/uL Absolute Nucleated RBC 0.000 (0.0-0.012) X10*3/uL Nucleated RBC % (auto) 0.0 (0.0-0.2) /100WBC Sodium (135-145) mmol/L Potassium (3.3-5.1) mmol/L Chloride (96-108) mmol/L Carbon Dioxide (22-29) mmol/L Anion Gap (12-20) BUN (9-16) mg/dL Creatinine (0.5-1.4) mg/dL Estim Creat Clear Calc Estimated GFR Random Glucose (60-115) mg/dL Calcium (8.4-10.2) mg/dL Troponin I High Sens < 3.5 (<3.5-17.0) ng/L Urine Color Urine Appearance Urine pH (5.0-9.0) Ur Specific [place] (1.005-1.025) Urine Protein (Neg-Trace) mg/dL Urine Glucose (UA) (Negative) mg/dL Urine Ketones (Negative) mg/dL Urine Blood (Negative) Urine Nitrite (Negative) Ur Leukocyte Esterase (Negative) Influenza Type A (PCR) NEGATIVE (Negative) Influenza Type B (PCR) NEGATIVE (Negative) RSV RNA Qual (PCR) NEGATIVE (Negative) SARS-CoV-2 RNA (RT-PCR) NEGATIVE (Negative) 03/23/22 03/23/22 Range/Units 17:40 19:32 WBC (4.8-10.8) X10*3/uL RBC (4.20-5.50) X10*6/uL Hgb (12.0-16.0) g/dl Hct (37.0-47.0) % MCV (80.0-98.0) fL MCH (27.0-33.0) pg MCHC (31.0-35.0) g/dl RDW (11.0-16.0) % Plt Count (160-400) X10*3/uL MPV (9.4-12.3) fL Immature Gran % (Auto) (0.0-0.4) % Neut % (Auto) (45-73) % Lymph % (Auto) (20-40) % [place] % (Auto) (2-11) % Eos % (Auto) (0-4) % Baso % (Auto) (0-2) % Lymph # (Auto) (1.2-4.9) X10*3/uL [place] # (Auto) (0.1-1.2) X10*3/uL Eos # (Auto) (0.0-0.4) X10*3/uL Baso # (Auto) (0.0-0.2) X10*3/uL Abs Immat Gran (auto) (0.00-0.03) X10*3/uL Absolute Neuts (auto) (2.0-8.3) x10*3/uL Absolute Nucleated RBC (0.0-0.012) X10*3/uL Nucleated RBC % (auto) (0.0-0.2) /100WBC Sodium 139 (135-145) mmol/L Potassium 4.0 (3.3-5.1) mmol/L Chloride 104 (96-108) mmol/L Carbon Dioxide 28 (22-29) mmol/L Anion Gap 11 L (12-20) BUN 12 (9-16) mg/dL Creatinine 0.75 (0.5-1.4) mg/dL Estim Creat Clear Calc 86.8 Estimated GFR > 60 Random Glucose 86 (60-115) mg/dL Calcium 9.2 (8.4-10.2) mg/dL Troponin I High Sens (<3.5-17.0) ng/L Urine Color Yellow Urine Appearance Clear Urine pH 6.0 (5.0-9.0) Ur Specific [place] 1.015 (1.005-1.025) Urine Protein Negative (Neg-Trace) mg/dL Urine Glucose (UA) Negative (Negative) mg/dL Urine Ketones Negative (Negative) mg/dL Urine Blood Negative (Negative) Urine Nitrite Negative (Negative) Ur Leukocyte Esterase Negative (Negative) Influenza Type A (PCR) (Negative) Influenza Type B (PCR) (Negative) RSV RNA Qual (PCR) (Negative) SARS-CoV-2 RNA (RT-PCR) (Negative) <Sejal Quach NP - Last Filed: 03/24/22 01:43> Independent Interpretation I performed an independent interpretation of an: EKG and Plain X-Ray <Sejal Quach NP - Last Filed: 03/24/22 01:43> Interpretation: Vent. rate 64 BPM OH interval 186 ms QRS duration 78 ms QT/QTc 440/453 ms P-R-T axes 34 -2 -19 Normal sinus rhythm Normal ECG When compared with ECG of 09-JAN-2022 19:38, No significant change was found 1 23-MAR-2022 13:56:21 <Sejal Quach NP - Last Filed: 03/24/22 01:43> Radiology Impression Discussion of test interpretation with radiology: I have reviewed the radiologist's reading. <Sejal Quach NP - Last Filed: 03/24/22 01:43> Radiologist Impression: EXAMINATION: XR CHEST CLINICAL INFORMATION: Chest pain COMPARISON: January 09, 2022 TECHNIQUE: 2 views of the chest were obtained. FINDINGS: No significant abnormality is noted involving the heart, lungs, mediastinum, bony thorax or soft tissues. XR/XR chest 2V IMPRESSION: No acute disease. <Sejal Quach NP - Last Filed: 03/24/22 01:43> External Record Review External record reviewed: Inpatient record, Outpatient record and Prior outpatient labs <Sejal Quach NP - Last Filed: 03/24/22 01:43> Chronic Conditions Patient?s care impacted by: Hypertension <Sejal Quach NP - Last Filed: 03/24/22 01:43> Scores Heart Score History: -0- slightly suspicious <Sejal Quach NP - Last Filed: 03/24/22 01:43> ECG: -0- normal <Sejal Quach NP - Last Filed: 03/24/22 01:43> Age: -1- >45 - <65 <Sejal Quach NP - Last Filed: 03/24/22 01:43> Risk factory: -1- 1 or 2 risk factors <Sejal Quach NP - Last Filed: 03/24/22 01:43> Troponin: -0- < or = normal limit <Sejal Quach NP - Last Filed: 03/24/22 01:43> Score: 2 <TRUPTI HaywardP-BC - Last Filed: 03/29/22 20:46> 2 <Sejal Quach NP - Last Filed: 03/24/22 01:43> Risk: 1.7% <Melani Conley PAPER BALER-BC - Last Filed: 03/29/22 20:46> 1.7% <Sejal Quach NP - Last Filed: 03/24/22 01:43> Discharge Plan Discharge Clinical Impression: Non-cardiac chest pain, Acute viral syndrome <Melani Conley PAPER BALER-BC - Last Filed: 03/29/22 20:46> Patient Disposition: Home, Self-Care <Melani Conley PAPER BALER-BC - Last Filed: 03/29/22 20:46> Instructions: Viral Syndrome (ED), Noncardiac Chest Pain (ED) <Melani Conley, PAPER BALER-BC - Last Filed: 03/29/22 20:46> Additional Instructions: You were evaluated for chest pain and dizziness. Her cardiac workup is negative. Your COVID influenza RSV test is negative. Your chest x-ray is negative for acute findings. Your lab values indicate mild anemia which is consistent with your prior values. Please follow-up with your primary care physician. Drink plenty of fluids. Thank you for choosing this emergency department for evaluation. Please follow-up with primary care physician as needed. Return to the emergency department for any new, concerning, or worsening symptoms. <SALLIE Hayward - Last Filed: 03/29/22 20:46> Prescriptions: No Action isosorbide mononitrate 60 mg tablet extended release 24 hr 90 mg PO DAILY 90 Days Qty: 135 3RF sumatriptan succinate 25 mg tablet 25 mg PO DAILY PRN (Reason: Migraine Headache) risperidone 1 mg tablet 1.5 mg PO BEDTIME clopidogrel [Plavix] 75 mg tablet 75 mg PO DAILY Qty: 30 0RF buspirone 10 mg tablet 20 mg PO BEDTIME acetaminophen 500 mg tablet 500 mg PO Q8H PRN (Reason: pain) cyanocobalamin (vitamin B-12) 1,000 mcg tablet 1,000 mcg PO DAILY ferrous sulfate [FeroSul] 325 mg (65 mg iron) tablet 325 mg PO DAILY risperidone 1 mg tablet 0.5 mg PO QAM rosuvastatin [Crestor] 40 mg tablet 40 mg PO DAILY metoprolol succinate 100 mg tablet extended release 24 hr 150 mg PO DAILY 30 Days Qty: 45 3RF Protocol: Hold for SBP/HR < HOLD for SBP < : 90 HOLD for HR < : 60 ranolazine [Ranexa] 500 mg tablet extended release 12 hr 500 mg PO BID Qty: 60 3RF <SALLIE Hayward - Last Filed: 03/29/22 20:46> Interventions: ED Discharge Assessment Last Done: 03/23/22 20:06 <SALLIE Hayward - Last Filed: 03/29/22 20:46> Discharge Date/Time: 03/23/22 20:09 <SALLIE Hayward - Last Filed: 03/29/22 20:46>
[2022-03-23 13:53] VITALS: BP 149/117; PULSE 67; RESP 19; TEMP 36.6; O2SAT 98; BMI 35.2
--- NOTE | 2022-03-23 13:54 | ECG_ITS ---
Test Reason : CP Blood Pressure : / mmHG Vent. Rate : 064 BPM Atrial Rate : 064 BPM P-R Int : 186 ms QRS Dur : 078 ms QT Int : 440 ms P-R-T Axes : 034 -02 -19 degrees QTc Int : 453 ms Normal sinus rhythm Normal ECG When compared with ECG of 09-JAN-2022 19:38, No significant change was found Referred By: Melani Conley Electronically Signed By:PA BULL
[2022-03-23 14:08] LABS: MANUAL DIFF FLAG NO
[2022-03-23 14:18] LABS: Basophils Absolute Auto 0.1 X10*3/uL (0.0-0.2); Basophils Percent Auto 0.8 % (0-2); Eosinophils Absolute Auto 0.2 X10*3/uL (0.0-0.4); Hematocrit 33.4 % (37.0-47.0); Hemoglobin 10.8 g/dl (12.0-16.0); Imm Gran Abs Auto 0.02 X10*3/uL (0.00-0.03); Imm Gran Pct Auto 0.3 % (0.0-0.4); Lymphocytes Absolute Auto 2.7 X10*3/uL (1.2-4.9); Lymphocytes Percent Auto 35.3 % (20-40); Mean Corpuscular HGB Conc 32.3 g/dl (31.0-35.0); Mean Corpuscular Hemoglobin 27.1 pg (27.0-33.0); Mean Corpuscular Volume 83.9 fL (80.0-98.0); Mean Platelet Volume 9.2 fL (9.4-12.3); Monocytes Absolute Auto 0.6 X10*3/uL (0.1-1.2); Monocytes Percent Auto 8.4 % (2-11); Neutrophils Percent Auto 52.2 % (45-73); Platelet Count 318 X10*3/uL (160-400); Red Blood Count 3.98 X10*6/uL (4.20-5.50); Red Cell Distribution Width 13.2 % (11.0-16.0); White Blood Count 7.6 X10*3/uL (4.8-10.8)
[2022-03-23 14:42] LABS: Troponin-I High Sensitivity < 3.5 ng/L (<3.5-17.0)
[2022-03-23 17:21] VITALS: BP 142/60; PULSE 67; RESP 18; TEMP 36.7; O2SAT 97
[2022-03-23 18:07] LABS: Anion Gap 11 (12-20); Blood Urea Nitrogen 12 mg/dL (9-16); Calcium 9.2 mg/dL (8.4-10.2); Carbon Dioxide 28 mmol/L (22-29); Chloride 104 mmol/L (96-108); Creatinine Clr Calc Pharmacy 86.8; Estimated Glomerular Filt Rate > 60; Glucose Random 86 mg/dL (60-115); Sodium 139 mmol/L (135-145)
[2022-03-23 18:29] LABS: Influenza A PCR NEGATIVE (Negative); Influenza B PCR NEGATIVE (Negative); Resp Syncy Virus RNA Qual PCR NEGATIVE (Negative); SARS COV2 PCR INHOUSE NEGATIVE (Negative)
[2022-03-23 19:30] VITALS: BP 142/72; PULSE 65; RESP 14; O2SAT 97
[2022-03-23 19:50] LABS: Appearance Urine Clear; Color Urine Yellow; Glucose Urine UA Negative (Negative); Leukocyte Esterase Urine Negative (Negative); Nitrite Urine Negative (Negative); Specific Gravity - Urine 1.015 (1.005-1.025); Urine Blood Negative (Negative); Urine Ketones Negative (Negative); Urine Protein Negative (Neg-Trace)
== END 2022-03-23 20:09 | disposition home or self-care (01) ==
PROVIDERS: Nurse Practitioner Family; Emergency Provider Emergency Medicine; PCP Internal Medicine Geriatric Medicine
DX: B34.9 Viral infection, unspecified (principal); R07.89 Other chest pain; R42 Dizziness and giddiness; Z20.822 Contact with and (suspected) exposure to COVID-19; Z79.899 Other long term (current) drug therapy
CPT/HCPCS: 0241U; 36415; 71046; 80048; 81003; 84484; 85025; 93005; 99283; 99284

== ENCOUNTER → 2022-04-04 14:46 | Outpatient (BNVA) | payer MEDICAID, SELFPAY | PROVIDERS: PCP Internal Medicine Geriatric Medicine; Visit Provider Internal Medicine Cardiovascular Disease | DX: I25.42 Coronary artery dissection (principal); Z79.02 Long term (current) use of antithrombotics/antiplatelets | CPT/HCPCS: 99212 ==

== ENCOUNTER 2022-04-26 11:44 | Outpatient (REF) | payer MEDICAID, SELFPAY ==
--- NOTE | 2022-04-26 09:45 | EMG_ITS ---
Please see scanned EMG / Nerve Conduction Report. MTDD
== END 2022-04-26 11:45 | disposition home or self-care (01) ==
LOC: HO.NEURO 11:44
PROVIDERS: PCP Internal Medicine Geriatric Medicine; Visit Provider Internal Medicine Geriatric Medicine
DX: G56.03 Carpal tunnel syndrome, bilateral upper limbs (principal)
CPT/HCPCS: 95885; 95913

== ENCOUNTER → 2022-08-08 13:44 | Outpatient (BNVA) | payer MEDICAID, SELFPAY | PROVIDERS: PCP Internal Medicine Geriatric Medicine; Referring Provider Internal Medicine Geriatric Medicine; Visit Provider Nurse Practitioner Family | DX: I25.42 Coronary artery dissection (principal); R07.9 Chest pain, unspecified; Z79.899 Other long term (current) drug therapy | CPT/HCPCS: 99212 ==

== ENCOUNTER 2022-11-17 13:36 | Outpatient (REF) | payer MEDICAID, SELFPAY ==
--- NOTE | ~2022-11-17 | MM_ITS ---
EXAMINATION: MM SCREENING DIGITAL BREAST TOMOSYNTHESIS, BILATERAL CLINICAL INFORMATION: Screening. Asymptomatic. COMPARISON: Mammography: This study is compared with prior exams dating back to 2016. TECHNIQUE: Digital breast tomosynthesis is performed in both the craniocaudal and mediolateral oblique views along with computer-aided detection (CAD). Synthesized 2D images are generated from the tomosynthesis. FINDINGS: The breasts are heterogeneously dense, which may obscure small masses (ACR BI-RADS breast composition Category c). There are no significant masses, abnormal calcifications, or other abnormalities. MM/MM tomosynthesis screening BI IMPRESSION: No mammographic evidence of malignancy. ASSESSMENT: BI-RADS BI-RADS 1 - Negative RECOMMENDATION: Routine annual mammography screening. 1 year F/U This examination should not preclude the clinical evaluation of a suspicious palpable abnormality. This patient's information was entered into a reminder system with a target due date for their next mammogram.
== END 2022-11-17 13:37 | disposition home or self-care (01) ==
LOC: HO.MAMMO 13:36
PROVIDERS: PCP Internal Medicine Geriatric Medicine; Visit Provider Internal Medicine Geriatric Medicine
DX: Z12.31 Encounter for screening mammogram for malignant neoplasm of breast (principal)
CPT/HCPCS: 77063; 77067

== ENCOUNTER → 2022-11-17 13:45 | Outpatient (BNV) | payer MEDICAID, SELFPAY | PROVIDERS: PCP Internal Medicine Geriatric Medicine; Visit Provider Radiology Diagnostic Radiology | DX: Z12.31 Encounter for screening mammogram for malignant neoplasm of breast (principal) | CPT/HCPCS: 77063; 77067 ==

== ENCOUNTER 2022-12-05 13:33 | Outpatient (AMB) | payer MEDICAID, SELFPAY ==
--- NOTE | 2022-12-05 13:35 | MHC.OFFVIS ---
Intake Vital Signs 12/05/22 13:36 Height 5 ft Weight 203 lb 4.259 oz BMI 39.7 BP 120/72 Blood Pressure Location Lt brachial Position Sitting Pulse 87 Pulse Source Pulse Oximeter Intake Visit Reasons: 4 mth f/up per dc Intake Note: 4 month f/u Automation Test Developer: Automation Test Developer Present Accompanied by: Sister Allergies ibuprofen [From MOTRIN] Allergy (Unknown, Verified 12/05/22 13:40) SWELLING Motrin Allergy (Unknown, Uncoded 08/08/22 13:49) Unknown Medication List - Last Reconciled 12/05/22 by FORTUNATO GaffneyC acetaminophen 500 mg PO Q8H PRN bupropion HCl 150 mg PO Q12H buspirone 20 mg PO BEDTIME clopidogrel (Plavix) 75 mg PO DAILY cyanocobalamin (vitamin B-12) 1,000 mcg PO DAILY ferrous sulfate (FeroSul) 325 mg PO DAILY isosorbide mononitrate ER 90 mg (1.5 x 60 mg) PO DAILY 90 days lorazepam 0.5 mg PO Q8H PRN metoprolol succinate ER 150 mg See Protocol PO DAILY 30 days ranolazine ER 1,000 mg PO BID 90 days risperidone 1.5 mg PO BEDTIME risperidone 0.5 mg PO QAM rosuvastatin (Crestor) 40 mg PO DAILY sumatriptan succinate 25 mg PO DAILY PRN HPI 4 mth f/up per dc HPI Details Lidia is a 47-year-old female with past medical history of hypertension who was admitted to [facility] 01/09/2022 with chest pain, acute coronary syndrome and then [place] [facility] 2 [place] SCAD with obstruction lesion in the RCA.? She was managed medically.? On follow-up visits she has reported exertional chest discomfort and medications have been titrated. Today he has reports that she was seen at the [facility] at [facility]. She says they just recommended a CT scan of her heart which she did have. She has not heard anything about the results and does not have a follow-up visit as of this time. She has been getting some mid chest discomfort especially when climbing stairs. She says it can be brought on by climbing and carrying an object such as her laundry. It does go away with rest. Overall it has not increased in severity or frequency in the last few months. She has been taking her medications as directed. She has no new symptoms to report. She denies shortness of breath, presyncope, syncope, PND, orthopnea or edema. No bleeding issues reported. [facility] Medical History Spontaneous dissection of coronary artery Generalized anxiety disorder Hypertension ACS (acute coronary syndrome) Chest pain Surgical History History of hysterectomy History of tubal ligation Family History Mother Hypertension Breast cancer Father Cancer Hypertension Maternal Uncle Diabetes Social History Alcohol intake: never Patient Tobacco Use Status: Former Tobacco user Quit Date: 2021 Years Smoked: 15 +/- service: No Review of Systems Const All systems reviewed & are unremarkable except as noted in HPI and below ENT Denies dizziness Card Reports chest pain, Denies chest pain at rest, Reports chest pain with activity, Denies rapid heart rate, Denies pedal edema, Denies edema, Denies leg edema, Denies lightheadedness, Denies palpitations, Denies dyspnea, Denies dyspnea on exertion and Denies orthopnea Resp Denies cough, Denies dyspnea and Denies dyspnea on exertion GI Denies hematochezia and Denies change in stool character Musc Denies abnormal gait, Denies limited range of motion, Denies muscle cramps, Denies muscle weakness, Denies numbness, Denies radiating pain into limb, Denies stiffness and Denies tingling Neuro Denies abnormal gait, Denies dizziness, Denies numbness and Denies tingling Endo Denies palpitations Physical Exam Vital Signs: Last Vital Signs Pulse 87 12/05/22 13:36 BP 120/72 12/05/22 13:36 BMI result Body Mass Index 39.7 Const General: cooperative, healthy appearing, comfortable and no acute distress Orientation/consciousness: patient oriented x3 Neck Neck: Yes normal visual inspection Resp Effort & Inspection: normal respiratory effort Auscultation: clear to auscultation bilaterally, no crackles, no rales, no rhonchi and no wheezes Cardio Jugular venous distension: no JVD Rate: regular rate Rhythm: regular rhythm Heart sounds: S1 normal heart sound present, S2 normal heart sound present, no murmurs and no rubs Neuro General: patient oriented x3 Extrem General: Yes normal to inspection, No no pedal edema and No calf tenderness Psych Appearance: grossly normal Mental Status: mental status grossly normal Speech and movement: Normal speech and movement present Office Procedures EKG Details: Today, read by me, normal sinus rhythm, no acute ST or T-wave abnormalities, QTC 463 milliseconds, rate 84 [id number], Complete Assessment & Plan Assessment & Plan (1) Spontaneous dissection of coronary artery: Code(s): I25.42 - Coronary artery dissection Plan: Presented to [facility] [place] 01/09/22 with chest discomfort. Ruled in for ACS with elevated troponins and EKG with T-wave inversions. Echo did show normal EF, wall motion abnormality suggestive of CAD. She was transferred to [facility] and underwent cardiac catheterization showing smooth stenosis of the LAD and RCA suggestive of 2 vessel SCAD with up to 75% stenosis of the mid RCA. She was managed medically. She is not on aspirin due to allergy. She has been on Plavix, metoprolol, high-dose statin. On the last few follow-up visits she had reported ongoing exertional chest discomfort episodes and her antianginals have been increased. She is currently on triple antianginal therapy with isosorbide 90 mg daily, metoprolol XL 150 mg daily, Ranexa 500 mg b.i.d.. Echocardiogram done 03/10/2022 showed EF 55-60%, no evidence of regional wall motion abnormalities. Today she reports that she has been getting some mid chest burning discomfort with stair climbing, especially when she is carrying something like her laundry or groceries. Her discomfort does resolve with rest. EKG done today showing sinus rhythm with no acute ST or T-wave abnormalities, rate 84. Will increase Ranexa to a 1000 mg b.i.d. instructed to call if symptoms not improving. Will reach out to [facility] to try to obtain the records and CTA results. ED care if ever needed for symptoms. Cardiology follow-up in 3mo, sooner if needed (2) S/P cardiac catheterization: Comment: 01/10/2022, left main normal, lad proximal 50% stenosis, left circumflex normal, RCA mid 75% stenosis, suspected to have SCAD with intramural hematoma. Manage medically. Code(s): Z98.890 - Other specified postprocedural states (3) Chest pain: Code(s): R07.9 - Chest pain, unspecified Qualifiers: Chest pain type: precordial pain Qualified Code(s): R07.2 - Precordial pain Medications: New ranolazine ER 1,000 mg PO BID 180 tabs 1RF 90 days Discontinued ranolazine ER Discontinued Reason: Doctor's Order 500 mg PO BID 90 days 180 tabs 3RF Coding Level of Care Code Est Pt Level 4 (54185) Diagnoses Spontaneous dissection of coronary artery I25.42 S/P cardiac catheterization Z98.890 Precordial pain R07.2 Chest pain type: precordial pain CPT Codes EKG - CPT: [id number], Complete ([id number]) Time Spent (min) 28
[2022-12-05 13:36] VITALS: BP 120/72; PULSE 87; BMI 39.7
== END 2022-12-05 14:12 | disposition home or self-care (01) ==
PROVIDERS: PCP Internal Medicine Geriatric Medicine; Visit Provider Nurse Practitioner Family
DX: I25.42 Coronary artery dissection (principal); Z98.890 Other specified postprocedural states; R07.2 Precordial pain
CPT/HCPCS: 93010; 99214

== ENCOUNTER → 2022-12-05 13:33 | Outpatient (BNVA) | payer MEDICAID, SELFPAY | PROVIDERS: PCP Internal Medicine Geriatric Medicine; Visit Provider Nurse Practitioner Family | DX: R07.2 Precordial pain (principal); I10 Essential (primary) hypertension; I25.42 Coronary artery dissection; Z87.891 Personal history of nicotine dependence; Z98.890 Other specified postprocedural states | CPT/HCPCS: 93005; 99212 ==

== ENCOUNTER 2023-04-03 12:56 | Outpatient (AMB) | payer MEDICAID, SELFPAY ==
--- NOTE | 2023-04-03 13:05 | MHC.OFFVIS ---
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 Allergies ibuprofen [From MOTRIN] Allergy (Unknown, Verified 12/05/22 13:40) SWELLING Motrin Allergy (Unknown, Uncoded 08/08/22 13:49) Unknown Medication List - Last Reconciled 04/03/23 by Francis Frank MD acetaminophen 500 mg PO Q8H PRN bupropion HCl 150 mg PO Q12H buspirone 20 mg PO BEDTIME clopidogrel (Plavix) 75 mg PO DAILY cyanocobalamin (vitamin B-12) 1,000 mcg PO DAILY ferrous sulfate (FeroSul) 325 mg PO DAILY isosorbide mononitrate ER 90 mg (1.5 x 60 mg) PO DAILY 90 days lorazepam 0.5 mg PO Q8H PRN metoprolol succinate ER 150 mg See Protocol PO DAILY 30 days ranolazine ER 1,000 mg PO BID 90 days risperidone 1.5 mg PO BEDTIME risperidone 0.5 mg PO QAM rosuvastatin (Crestor) 40 mg PO DAILY sumatriptan succinate 25 mg PO DAILY PRN HPI HPI Comments History of Present Illness Details Lidia comes for follow-up. She is accompanied by her daughter. She remains active. Currently he has not having any anginal symptoms at current workload. Taking all her medications. Denies smoking. Has not had follow-up at [facility]. Do not have any copy of records from [facility] regarding her CT scan results. Takes all her medications. Denies any heart failure symptoms. Denies any prolonged palpitation irregular heartbeat. COUNT INCLUDES THE [facility] Medical History (Updated 04/03/23 @ 13:41 by Francis Frank MD) Hypertension Spontaneous dissection of coronary artery Generalized anxiety disorder ACS (acute coronary syndrome) Chest pain Surgical History History of hysterectomy History of tubal ligation Family History Mother Hypertension Breast cancer Father Cancer Hypertension Maternal Uncle Diabetes Social History Alcohol intake: never Patient Tobacco Use Status: Former Tobacco user Quit Date: 2021 Years Smoked: 15 +/- service: No Review of Systems Const Denies chills, Denies fatigue, Denies fever(s), Denies frequent falls, Denies weakness, Denies weight gain and Denies weight loss ENT Denies dizziness Card Denies chest pain, Denies leg edema, Denies lightheadedness, Denies palpitations, Denies dyspnea, Denies dyspnea on exertion, Denies orthopnea and Denies other (loss of consciousness) Resp Denies cough, Denies dyspnea and Denies dyspnea on exertion GI Denies hematochezia and Denies change in stool character Musc Denies abnormal gait, Denies muscle weakness, Denies numbness, Denies radiating pain into limb and Denies tingling Neuro Denies abnormal gait, Denies dizziness, Denies frequent falls, Denies numbness, Denies tingling and Denies weakness Endo Denies fatigue and Denies palpitations Physical Exam Vital Signs: Last Vital Signs Pulse 72 04/03/23 13:06 BP 120/74 04/03/23 13:06 BMI result Body Mass Index 39.2 Const General: cooperative, healthy appearing, comfortable and no acute distress Orientation/consciousness: patient oriented x3 Neck Neck: Yes normal visual inspection Resp Effort & Inspection: normal respiratory effort Auscultation: clear to auscultation bilaterally, no crackles, no rales, no rhonchi and no wheezes Cardio Jugular venous distension: no JVD Rate: regular rate Rhythm: regular rhythm Heart sounds: S1 normal heart sound present, S2 normal heart sound present, no murmurs and no rubs Neuro General: patient oriented x3 Extrem General: Yes normal to inspection, No no pedal edema and No calf tenderness Psych Appearance: grossly normal Mental Status: mental status grossly normal Speech and movement: Normal speech and movement present Assessment & Plan Assessment & Plan (1) Spontaneous dissection of coronary artery: Code(s): I25.42 - Coronary artery dissection Plan: Patient present with acute coronary syndrome with cardiac catheterization findings consistent with spontaneous coronary artery dissection of the RCA as well as LAD with luminal narrowing in the RCA. Currently on triple antianginal therapy with no significant symptoms. Continue the same. Continue low-dose aspirin therapy for life. She is encouraged to continue to participate in physical activity as tolerated. Strongly recommend to follow-up with [facility] in [place] for further workup. (2) Hypertension: Code(s): I10 - Essential (primary) hypertension Plan: Hypertension which is currently well optimized advised to monitor blood pressure at home maintain a log. Advised low-salt diet. Advised to participate in regular physical activity and weight loss program. Low-salt diet was discussed. Goal blood pressure less than 130/84. Follow up in the clinic in 6 months time, sooner p.r.n.. Thank you for allowing me to partake in the care Coding Level of Care Code Est Pt Level 4 (17482) Diagnoses Spontaneous dissection of coronary artery I25.42 Hypertension I10
[2023-04-03 13:06] VITALS: BP 120/74; PULSE 72; BMI 39.2
== END 2023-04-03 13:39 | disposition home or self-care (01) ==
PROVIDERS: PCP Internal Medicine Geriatric Medicine; Referring Provider Internal Medicine Geriatric Medicine; Visit Provider Internal Medicine Cardiovascular Disease
DX: I25.42 Coronary artery dissection (principal); I10 Essential (primary) hypertension
CPT/HCPCS: 99214

== ENCOUNTER → 2023-04-03 12:56 | Outpatient (BNVA) | payer MEDICAID, SELFPAY | PROVIDERS: PCP Internal Medicine Geriatric Medicine; Visit Provider Internal Medicine Cardiovascular Disease | DX: I25.42 Coronary artery dissection (principal); I10 Essential (primary) hypertension; Z79.82 Long term (current) use of aspirin | CPT/HCPCS: 99212 ==

== ENCOUNTER 2023-05-15 10:32 | Outpatient (REF) | payer MEDICAID, SELFPAY ==
[2023-05-16 08:05] LABS: ~HepC Num1 0.29 S/CO (0.00-0.79); ~Hepatitis C Antibody Nonreactive (Nonreactive)
== END 2023-05-15 10:33 | disposition home or self-care (01) ==
LOC: HO.HHCL 10:32
PROVIDERS: Visit Provider Internal Medicine Geriatric Medicine
DX: Z11.59 Encounter for screening for other viral diseases (principal)
CPT/HCPCS: 36415; 86803

== ENCOUNTER 2023-10-02 12:44 | Outpatient (AMB) | payer MEDICAID, SELFPAY ==
[2023-10-02 12:55] VITALS: BP 120/72; PULSE 69; BMI 39.1
--- NOTE | 2023-10-02 12:55 | MHC.OFFVIS ---
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 Allergies ibuprofen [From MOTRIN] Allergy (Unknown, Verified 10/02/23 12:58) SWELLING Motrin Allergy (Unknown, Uncoded 10/02/23 12:58) Unknown Medication List - Last Reconciled 10/02/23 by JL Gaffney acetaminophen 500 mg PO Q8H PRN bupropion HCl SR 150 mg PO Q12H buspirone 20 mg PO BEDTIME clopidogrel (Plavix) 75 mg PO DAILY cyanocobalamin (vitamin B-12) 1,000 mcg PO DAILY isosorbide mononitrate ER 90 mg (1.5 x 60 mg) PO DAILY 90 days lorazepam 0.5 mg PO Q8H PRN metoprolol succinate ER 150 mg See Protocol PO DAILY 30 days ranolazine ER 1,000 mg PO BID 90 days risperidone 1.5 mg PO BEDTIME risperidone 0.5 mg PO QAM rosuvastatin (Crestor) 40 mg PO DAILY sumatriptan succinate 25 mg PO DAILY PRN HPI HPI 6 mth f/up: Details: Lidia is a 48-year-old female with past medical history of hypertension who was admitted to [facility] 01/09/2022 with chest pain, acute coronary syndrome and then underwent cardiac catheterization at [facility] [place] showing 2 vessel SCAD with obstruction lesion in the RCA.? She was managed medically.? On follow-up visits she has reported exertional chest discomfort and medications have been titrated. She was referred to [facility] for further evaluation. Today he has reports that she has been doing well since her last visit in March. She has not been back to [facility]. She says they just recommended a CT scan of her heart which she did have. She has not heard anything about the results and does not have a follow-up visit as of this time. She has not been getting chest discomfort like she has previously reported to us. She has been increasing her physical activity and tolerating it well. She is able to do normal ADLs and housework. She is taking all her medications as directed. No shortness of breath, presyncope, syncope, PND, orthopnea or edema. No bleeding issues reported. [facility] Medical History Hypertension Spontaneous dissection of coronary artery Generalized anxiety disorder ACS (acute coronary syndrome) Chest pain Surgical History History of hysterectomy History of tubal ligation Family History Mother Hypertension Breast cancer Father Cancer Hypertension Maternal Uncle Diabetes Social History Alcohol intake: never Patient Tobacco Use Status: Former Tobacco user Years Smoked: 15 +/- service: No Review of Systems Const All systems reviewed & are unremarkable except as noted in HPI and below ENT Denies dizziness Card Reports chest pain (with coughing), Denies chest pain at rest, Denies chest pain with activity, Denies rapid heart rate, Denies pedal edema, Denies edema, Denies leg edema, Denies lightheadedness, Denies palpitations, Denies dyspnea, Denies dyspnea on exertion and Denies orthopnea Resp Denies cough, Denies dyspnea and Denies dyspnea on exertion GI Denies hematochezia and Denies change in stool character Musc Denies abnormal gait, Reports limited range of motion, Reports muscle cramps, Denies muscle weakness, Denies numbness, Denies radiating pain into limb, Denies stiffness and Denies tingling Neuro Denies abnormal gait, Denies dizziness, Denies numbness and Denies tingling Endo Denies palpitations Physical Exam Vital Signs: Last Vital Signs Pulse 69 10/02/23 12:55 BP 120/72 10/02/23 12:55 BMI result Body Mass Index 39.1 Const General: cooperative, healthy appearing, comfortable and no acute distress Orientation/consciousness: patient oriented x3 Neck Neck: Yes normal visual inspection Resp Effort & Inspection: normal respiratory effort Auscultation: clear to auscultation bilaterally, no crackles, no rales, no rhonchi and no wheezes Cardio Jugular venous distension: no JVD Rate: regular rate Rhythm: regular rhythm Heart sounds: S1 normal heart sound present, S2 normal heart sound present, no murmurs and no rubs Neuro General: patient oriented x3 Extrem General: Yes normal to inspection, No no pedal edema and No calf tenderness Psych Appearance: grossly normal Mental Status: mental status grossly normal Speech and movement: Normal speech and movement present Assessment & Plan Assessment & Plan (1) Spontaneous dissection of coronary artery: Code(s): I25.42 - Coronary artery dissection Category: Medical Plan: Presented to [facility] 01/09/22 with chest discomfort. Ruled in for ACS with elevated troponins and EKG with T-wave inversions. Echo did show normal EF, wall motion abnormality suggestive of CAD. She was transferred to [facility] and underwent cardiac catheterization showing smooth stenosis of the LAD and RCA suggestive of 2 vessel SCAD with up to 75% stenosis of the mid RCA. She was managed medically. She is not on aspirin due to allergy. She has been on Plavix, metoprolol, high-dose statin. On follow-up visits she had reported ongoing exertional chest discomfort episodes and her antianginals have been increased. She is currently on triple antianginal therapy with isosorbide 90 mg daily, metoprolol XL 150 mg daily, Ranexa 1000 mg b.i.d.. Last Echocardiogram done 03/10/2022 showed EF 55-60%, no evidence of regional wall motion abnormalities. She was seen at the [facility] for 1 visit but has not been back. Will reach out to them to see if they plan a follow-up with her. Today she reports that she has been doing better overall. She is not having chest discomfort like she has previously reported. She has been able to tolerate normal ADLs and housework. Instructed to call if she is having recurrent chest discomfort. ED care if ever needed for symptoms. Follow-up with [facility]. Cardiology follow-up in this office, 6 months, sooner if needed. (2) S/P cardiac catheterization: Comment: 01/10/2022, left main normal, lad proximal 50% stenosis, left circumflex normal, RCA mid 75% stenosis, suspected to have SCAD with intramural hematoma. Manage medically. Code(s): Z98.890 - Other specified postprocedural states Category: Surgical Plan: As above Plan Time spent on chart review, documentation, interview and assessment Coding Level of Care Code Est Pt Level 3 (47262) Diagnoses Spontaneous dissection of coronary artery I25.42 S/P cardiac catheterization Z98.890 Time Spent (min) 24
== END 2023-10-02 13:20 | disposition home or self-care (01) ==
PROVIDERS: PCP Internal Medicine Geriatric Medicine; Visit Provider Nurse Practitioner Family
DX: I25.42 Coronary artery dissection (principal); Z98.890 Other specified postprocedural states
CPT/HCPCS: 99213

== ENCOUNTER → 2023-10-02 12:44 | Outpatient (BNVA) | payer MEDICAID, SELFPAY | PROVIDERS: PCP Internal Medicine Geriatric Medicine; Visit Provider Nurse Practitioner Family | DX: I25.42 Coronary artery dissection (principal); Z98.890 Other specified postprocedural states | CPT/HCPCS: 99212 ==

== ENCOUNTER 2024-01-07 08:57 | Outpatient (REF) | payer MEDICAID, SELFPAY ==
[2024-01-07 12:11] LABS: MANUAL DIFF FLAG NO
[2024-01-07 12:42] LABS: Alanine Aminotransferase 25 U/L (0-31); Alkaline Phosphatase 73 U/L (39-117); Anion Gap 11 (12-20); Aspartate Amino Transferase 27 U/L (5-31); Bilirubin Total 0.3 mg/dL (0.0-1.0); Blood Urea Nitrogen 16 mg/dL (9-16); Carbon Dioxide 24 mmol/L (22-29); Chloride 110 mmol/L (96-108); Cholesterol 117 mg/dL (<200); Estimated Glomerular Filt Rate > 60; Glucose Random 105 mg/dL (60-115); HDL Cholesterol 39 mg/dL (>40); LDL Cholesterol Calculated 57 mg/dL (<100); Potassium 3.6 mmol/L (3.3-5.1); Sodium 141 mmol/L (135-145); Total Protein 7.2 g/dL (6.5-8.0); Triglycerides 105 mg/dL (<150)
[2024-01-07 13:05] LABS: TSH reflex Free T4 0.81 uIU/mL (0.32-4.0)
[2024-01-07 15:30] LABS: Basophils Absolute Auto 0.1 X10*3/uL (0.0-0.2); Basophils Percent Auto 0.6 % (0-2); Eosinophils Absolute Auto 0.2 X10*3/uL (0.0-0.4); Eosinophils Percent Auto 2.8 % (0-4); Hemoglobin 11.6 g/dl (12.0-16.0); Imm Gran Abs Auto 0.01 X10*3/uL (0.00-0.03); Imm Gran Pct Auto 0.1 % (0.0-0.4); Lymphocytes Percent Auto 37.3 % (20-40); Mean Corpuscular HGB Conc 32.2 g/dl (31.0-35.0); Mean Corpuscular Volume 83.9 fL (80.0-98.0); Mean Platelet Volume 10.5 fL (9.4-12.3); Monocytes Absolute Auto 0.5 X10*3/uL (0.1-1.2); Neutrophils Absolute Auto 4.3 x10*3/uL (2.0-8.3); Neutrophils Percent Auto 53.2 % (45-73); Platelet Count 352 X10*3/uL (160-400); Red Blood Count 4.29 X10*6/uL (4.20-5.50); Red Cell Distribution Width 14.8 % (11.0-16.0); White Blood Count 8.2 X10*3/uL (4.8-10.8)
== END 2024-01-07 08:58 | disposition home or self-care (01) ==
LOC: HO.HHCL 08:57
PROVIDERS: Visit Provider Internal Medicine Geriatric Medicine
DX: E66.01 Morbid (severe) obesity due to excess calories (principal); I25.2 Old myocardial infarction
CPT/HCPCS: 36415; 80053; 80061; 84443; 85025

== ENCOUNTER 2024-01-28 19:14 | Emergency (ER) | payer MEDICAID, SELFPAY ==
[2024-01-28 19:21] VITALS: BP 148/92; PULSE 93; RESP 18; TEMP 36.8; O2SAT 98; BMI 35.2
--- NOTE | 2024-01-28 19:25 | ED.GENADULT ---
HPI - General Adult General Chief complaint: Abdominal Pain Stated complaint: abd pain Source: patient Mode of arrival: ambulatory Limitations: no limitations History of Present Illness ED Provider: Olinda Ramirez PA-C HPI narrative: Patient is a 48 year old assigned female at with a history of HTN, coronary artery dissection, and a cardiac catheterization presenting to the emergency department today with right upper quadrant abdominal pain. Patient states that over the last 2 days she has right upper quadrant abdominal pain, nausea, vomiting, and diarrhea. Patient denies any dizziness, lightheadedness, fever, chills, blurry vision, double vision, loss of vision, chest pain, difficulty breathing, shortness of breath, back pain, night sweats, pain with urination, increased urinary frequency, increased urinary urgency, blood in her urine or stool, syncope or a near syncopal episode, recent trauma or falls, bowel incontinence, bladder incontinence, or any other complaints at this time. Onset (ago): day(s) (2) Location: abdomen Relieving factors: none Exacerbating factors: none Associated symptoms: nausea/vomiting Treatments prior to arrival: none Related Data Home Medications ?Medication ?Instructions ?Recorded ?Confirmed risperidone 1 mg tablet 1.5 mg PO BEDTIME 01/09/22 10/02/23 sumatriptan succinate 25 mg tablet 25 mg PO DAILY PRN Migraine 01/09/22 10/02/23 Headache buspirone 10 mg tablet 20 mg PO BEDTIME 02/03/22 10/02/23 rosuvastatin 40 mg tablet (Crestor) 40 mg PO DAILY 02/03/22 10/02/23 acetaminophen 500 mg tablet 500 mg PO Q8H PRN pain 02/14/22 10/02/23 cyanocobalamin (vitamin B-12) 1,000 mcg PO DAILY 02/14/22 10/02/23 1,000 mcg tablet risperidone 1 mg tablet 0.5 mg PO QAM 02/14/22 10/02/23 bupropion HCl 150 mg tablet,12 hr 150 mg PO Q12H 08/08/22 10/02/23 sustained-release lorazepam 0.5 mg tablet 0.5 mg PO Q8H PRN anxiety 08/08/22 10/02/23 Previous Rx's ?Medication ?Instructions ?Recorded clopidogrel 75 mg tablet (Plavix) 75 mg PO DAILY #30 tabs 01/10/22 metoprolol succinate 100 mg 150 mg PO DAILY 30 days #45 tabs 02/14/22 tablet,extended release 24 hr isosorbide mononitrate 60 mg 90 mg (1.5 x 60 mg) PO DAILY 90 02/21/23 tablet,extended release 24 hr days #135 tabs ranolazine 1,000 mg 1,000 mg PO BID 90 days #180 tabs 07/23/23 tablet,extended release,12 hr Allergies Allergy/AdvReac Type Severity Reaction Status Date / Time ibuprofen [From MOTRIN] Allergy Unknown SWELLING Verified 10/02/23 12:58 aspirin Allergy Rash Verified 01/28/24 19:24 Motrin Allergy Unknown Unknown Uncoded 10/02/23 12:58 Review of Systems Constitutional: Constitutional: Reports no additional constitutional complaints, Denies chills, Denies fever(s) and Denies night sweats Eyes: Eyes: Reports no additional eye complaints, Denies blurry vision, Denies change in vision, Denies diplopia, Denies eye discharge, Denies loss of vision and Denies eye pain ENT: Denies dizziness Cardiovascular: Cardiovascular: Reports no additional cardiovascular complaints, Denies chest pain, Denies lightheadedness, Denies Loss of Consciousness and Denies dyspnea Respiratory: Respiratory: Reports no additional respiratory complaints and Denies dyspnea Gastrointestinal: Gastrointestinal: Reports no additional gastrointestinal complaints, Reports abdominal pain, Denies melena, Denies hematochezia, Denies change in bowel habits, Denies change in stool character, Reports diarrhea, Reports nausea and Reports vomiting Genitourinary: Genitourinary: Denies hematuria, Denies urinary frequency, Denies dysuria, Denies urinary incontinence, Denies urinary hesitancy and Denies urinary urgency Musculoskeletal: Musculoskeletal: Reports no additional musculoskeletal complaints, Denies numbness and Denies tingling Neurologic: Denies dizziness, Denies loss of vision, Denies numbness and Denies tingling Psychiatric: Psychiatric: Reports no additional psychiatric complaints Endocrine: Endocrine: Reports no additional endocrine complaints Hematologic/Lymphatic: Hematologic/Lymphatic: Reports no additional hematologic/lymphatic complaints Allergic/Immunologic: Allergic/Immunologic: Reports no additional allergic/immunologic complaints PMFSH Past Medical History Attestation statement: The following information was validated with the patient. Source: old records reviewed and nursing notes reviewed Medical History Hypertension Spontaneous dissection of coronary artery Generalized anxiety disorder ACS (acute coronary syndrome) Chest pain Surgical History History of hysterectomy History of tubal ligation Family History Family History Mother Hypertension Breast cancer Father Cancer Hypertension Maternal Uncle Diabetes Social History Social History Alcohol intake: never Patient Tobacco Use Status: Former Tobacco user Years Smoked: 15 +/- service: No Physical Exam ED Vital Signs: Vital Signs - 24 hr 01/28/24 19:21 Temperature 98.2 F Pulse Rate 93 Respiratory Rate 18 Blood Pressure 148/92 H Pulse Oximetry 98 Oxygen Delivery Method Room Air BMI result Body Mass Index 35.2 Const General: cooperative, no acute distress, alert and awake Nutritional Appearance: well nourished Orientation/consciousness: patient oriented x3 Limitations: no limitations HENMT Head: Yes normal to inspection and Yes atraumatic Ears: hearing grossly normal bilaterally and external ears normal General nose exam: Normal external nose present, no nasal discharge noted and no epistaxis Face and sinus: Yes normal facial exam, No abrasion and No laceration Mouth: Normal oral and palatal mucosa present, no drooling and no muffled voice Eyes General: appearance normal, both eyes and all related structures Periorbital: periorbital findings normal Eyelids: Yes eyelids normal Conjunctivae: conjunctivae normal Pupils: Equal, round and reactive pupils present EOM: EOMs intact bilaterally Neck Neck: Yes normal visual inspection, Yes full ROM and Yes no lymphadenopathy Chest Chest palpation & inspection: normal inspection of the chest Resp Effort & Inspection: normal respiratory effort and able to speak in complete sentences GI Inspection: Yes normal to inspection Neuro General: patient oriented x3 and moves all extremities Cranial nerves: Yes Equal, round and reactive pupils present Cognition (Neuro): normal cognition Extrem General: Yes normal to inspection, Yes full ROM and Yes capillary refill normal Psych Appearance: grossly normal Mental Status: mental status grossly normal Affect: normal affect Attitude: cooperative Thought process: Normal thought process present Thought content: Normal thought content present Insight: Good insight present (Psych) Course Course Course Narrative: RME performed by Olinda Ramirez PA-C. Patient is a 48 year old assigned female at presenting to the emergency department with abdominal pain. Patient states over the last 2 days she has had right upper quadrant abdominal pain. Detailed physical exam and review of systems are deferred to the movie projectionist. Labs and swabs ordered. Patient placed back in the waiting room pending room availability and results. Medical Decision Making Medical Decision Making [facility] Narrative: Patient is a 48 year old assigned female at with a history of HTN, coronary artery dissection, and a cardiac catheterization presenting to the emergency department today with right upper quadrant abdominal pain. Patient's limited physical exam performed in triage was unremarkable. Patient's blood work was unremarkable. Patient left the department without completing treatment. Patient left the department before myself or any of the other emergency department clinicians could explain to or review with the patient; physical exam findings, test results, need or lack there of for additional testing, need or lack there of for a procedure to be performed, need or lack there of for hospital admission / transfer, need or lack there of for prescription medication, treatment options, or a treatment plan. Differential Diagnosis Differential Diagnoses: The differential diagnosis associated with the presentation includes Abdominal pain Nausea Vomiting Diarrhea Admission/Observation Consideration of admission/observation: Escalation of care including admission/observation considered Patient would have been admitted to the hospital had she completed her work up and it had any findings where hospital admission was appropriate, her clinical presentation warranted hospital admission, had myself or any other emergency college or university department head had the ability to discuss need or lack there of for hospital admission, and the patient hadn't left the department without completing treatment. Lab Data [facility] Lab Attestation statement: I reviewed the patient's lab results. My interpretation of these results are in the MDM Rationale portion of this note. 01/28/24 19:35 01/28/24 19:35 Labs: Lab Results 01/28/24 01/28/24 Range/Units 19:35 19:39 WBC 10.8 (4.8-10.8) X10*3/uL RBC 4.54 (4.20-5.50) X10*6/uL Hgb 12.4 (12.0-16.0) g/dl Hct 37.0 (37.0-47.0) % MCV 81.5 (80.0-98.0) fL MCH 27.3 (27.0-33.0) pg MCHC 33.5 (31.0-35.0) g/dl RDW 13.5 (11.0-16.0) % Plt Count 257 D (160-400) X10*3/uL MPV 10.1 (9.4-12.3) fL Immature Gran % (Auto) 0.3 (0.0-0.4) % Neut % (Auto) 63.7 (45-73) % Lymph % (Auto) 26.3 (20-40) % [place] % (Auto) 8.0 (2-11) % Eos % (Auto) 1.1 (0-4) % Baso % (Auto) 0.6 (0-2) % Lymph # (Auto) 2.9 (1.2-4.9) X10*3/uL [place] # (Auto) 0.9 (0.1-1.2) X10*3/uL Eos # (Auto) 0.1 (0.0-0.4) X10*3/uL Baso # (Auto) 0.1 (0.0-0.2) X10*3/uL Abs Immat Gran (auto) 0.03 (0.00-0.03) X10*3/uL Absolute Neuts (auto) 6.9 (2.0-8.3) x10*3/uL Absolute Nucleated RBC 0.000 (0.0-0.012) X10*3/uL Nucleated RBC % (auto) 0.0 (0.0-0.2) /100WBC Sodium 138 (135-145) mmol/L Potassium 3.4 (3.3-5.1) mmol/L Chloride 108 (96-108) mmol/L Carbon Dioxide 20 L (22-29) mmol/L Anion Gap 13 (12-20) BUN 14 (9-16) mg/dL Creatinine 0.72 (0.5-1.4) mg/dL Estim Creat Clear Calc 88.4 Estimated GFR > 60 Random Glucose 105 (60-115) mg/dL Calcium 9.9 D (8.4-10.2) mg/dL Magnesium 1.9 (1.6-2.6) mg/dL Total Bilirubin 0.6 (0.0-1.0) mg/dL AST 18 (5-31) U/L ALT 17 (0-31) U/L Alkaline Phosphatase 78 (39-117) U/L Total Protein 8.0 (6.5-8.0) g/dL Albumin 4.3 (3.5-5.0) g/dL Urine Color Dark Yellow Urine Appearance Cloudy Urine pH 6.0 (5.0-9.0) Ur Specific [place] >= 1.030 H (1.005-1.025) Urine Protein 100 (2+) H (Neg-Trace) mg/dL Urine Glucose (UA) Negative (Negative) mg/dL Urine Ketones 15 (Negative) mg/dL Urine Blood Negative (Negative) Urine Nitrite Negative (Negative) Ur Leukocyte Esterase Small (1+) H (Negative) Urine RBC 0-2 (0-2) /HPF Urine WBC 0-5 (0-5) /HPF Ur Squamous Epith Cells 11-20 (0-2) /HPF Urine Bacteria 4+ (None Seen) Hyaline Casts 0-2 (0-2) /LPF Influenza Type A (PCR) NEGATIVE (Negative) Influenza Type B (PCR) NEGATIVE (Negative) RSV RNA Qual (PCR) NEGATIVE (Negative) SARS-CoV-2 RNA (RT-PCR) NEGATIVE (Negative) Discharge Plan Discharge Clinical Impression: Abdominal pain, Nausea & vomiting, Diarrhea Patient Disposition: Left W/O Completing Treatment Prescriptions: No Action isosorbide mononitrate 60 mg tablet extended release 24 hr 90 mg PO DAILY 90 Days Qty: 135 3RF ranolazine 1,000 mg tablet extended release 12 hr 1,000 mg PO BID 90 Days Qty: 180 1RF sumatriptan succinate 25 mg tablet 25 mg PO DAILY PRN (Reason: Migraine Headache) risperidone 1 mg tablet 1.5 mg PO BEDTIME clopidogrel [Plavix] 75 mg tablet 75 mg PO DAILY Qty: 30 0RF buspirone 10 mg tablet 20 mg PO BEDTIME acetaminophen 500 mg tablet 500 mg PO Q8H PRN (Reason: pain) cyanocobalamin (vitamin B-12) 1,000 mcg tablet 1,000 mcg PO DAILY risperidone 1 mg tablet 0.5 mg PO QAM lorazepam 0.5 mg tablet 0.5 mg PO Q8H PRN (Reason: anxiety) bupropion HCl 150 mg tablet sustained-release 12 hr 150 mg PO Q12H rosuvastatin [Crestor] 40 mg tablet 40 mg PO DAILY metoprolol succinate 100 mg tablet extended release 24 hr 150 mg PO DAILY 30 Days Qty: 45 3RF Protocol: Hold for SBP/HR < HOLD for SBP < : 90 HOLD for HR < : 60 Discharge Date/Time: 01/29/24 03:49
[2024-01-28 19:41] LABS: MANUAL DIFF FLAG NO
[2024-01-28 19:45] LABS: Basophils Absolute Auto 0.1 X10*3/uL (0.0-0.2); Basophils Percent Auto 0.6 % (0-2); Eosinophils Absolute Auto 0.1 X10*3/uL (0.0-0.4); Eosinophils Percent Auto 1.1 % (0-4); Hemoglobin 12.4 g/dl (12.0-16.0); Imm Gran Abs Auto 0.03 X10*3/uL (0.00-0.03); Imm Gran Pct Auto 0.3 % (0.0-0.4); Lymphocytes Absolute Auto 2.9 X10*3/uL (1.2-4.9); Lymphocytes Percent Auto 26.3 % (20-40); Mean Corpuscular HGB Conc 33.5 g/dl (31.0-35.0); Mean Corpuscular Hemoglobin 27.3 pg (27.0-33.0); Mean Corpuscular Volume 81.5 fL (80.0-98.0); Mean Platelet Volume 10.1 fL (9.4-12.3); Monocytes Absolute Auto 0.9 X10*3/uL (0.1-1.2); Neutrophils Absolute Auto 6.9 x10*3/uL (2.0-8.3); Neutrophils Percent Auto 63.7 % (45-73); Platelet Count 257 X10*3/uL (160-400); Red Blood Count 4.54 X10*6/uL (4.20-5.50); Red Cell Distribution Width 13.5 % (11.0-16.0); White Blood Count 10.8 X10*3/uL (4.8-10.8)
[2024-01-28 19:48] LABS: Appearance Urine Cloudy; Color Urine Dark Yellow; Glucose Urine UA Negative (Negative); Leukocyte Esterase Urine Small (1+) (Negative); Nitrite Urine Negative (Negative); Specific Gravity - Urine >= 1.030 (1.005-1.025); UMIC TRIGGER UACC YES; Urine Blood Negative (Negative); Urine Ketones 15 mg/dL (Negative); Urine Protein 100 (2+) mg/dL (Neg-Trace)
[2024-01-28 20:03] LABS: Bacteria Urine 4+ (None Seen); Hyaline Casts Urine 0-2 /LPF (0-2); RBC Urine 0-2 /HPF (0-2); UACC Culture Trigger YES; WBC Urine 0-5 /HPF (0-5)
[2024-01-28 20:10] LABS: Alanine Aminotransferase 17 U/L (0-31); Albumin Level 4.3 g/dL (3.5-5.0); Alkaline Phosphatase 78 U/L (39-117); Anion Gap 13 (12-20); Aspartate Amino Transferase 18 U/L (5-31); Bilirubin Total 0.6 mg/dL (0.0-1.0); Blood Urea Nitrogen 14 mg/dL (9-16); Calcium 9.9 mg/dL (8.4-10.2); Carbon Dioxide 20 mmol/L (22-29); Chloride 108 mmol/L (96-108); Creatinine Clr Calc Pharmacy 88.4; Estimated Glomerular Filt Rate > 60; Glucose Random 105 mg/dL (60-115); Magnesium 1.9 mg/dL (1.6-2.6); Potassium 3.4 mmol/L (3.3-5.1); Sodium 138 mmol/L (135-145)
[2024-01-28 20:35] LABS: Influenza A PCR NEGATIVE (Negative); Influenza B PCR NEGATIVE (Negative); Resp Syncy Virus RNA Qual PCR NEGATIVE (Negative); SARS COV2 PCR INHOUSE NEGATIVE (Negative)
--- NOTE | 2024-01-29 03:48 | PC.NURSE ---
Pt stated leaving to this RN, requested to stay, pt refused.
== END 2024-01-29 03:49 | disposition left against medical advice (07) ==
PROVIDERS: Physician Assistant Medical; Emergency Provider Emergency Medicine
DX: R10.11 Right upper quadrant pain (principal); R11.2 Nausea with vomiting, unspecified; R19.7 Diarrhea, unspecified; I10 Essential (primary) hypertension; Z80.3 Family history of malignant neoplasm of breast; Z80.9 Family history of malignant neoplasm, unspecified; Z79.899 Other long term (current) drug therapy; Z03.818 Encounter for observation for suspected exposure to other biological agents ruled out
CPT/HCPCS: 0241U; 80053; 81001; 83735; 85025; 87086; 99282; 99283

== ENCOUNTER 2024-02-18 13:24 | Outpatient (AMB) | payer MEDICAID, SELFPAY ==
[2024-02-18 13:25] VITALS: BP 122/78; PULSE 80; BMI 32.3
--- NOTE | 2024-02-18 13:25 | MHC.OFFVIS ---
Vital Signs 02/18/24 13:25 Height 5 ft Weight 165 lb 5.547 oz BMI 32.3 BP 122/78 Blood Pressure Location Lt brachial Position Sitting Pulse 80 Intake Visit Reasons: 6mth f/up Intake Note: 6 month follow-up with ekg c/o squeezing in center of chest Optometrist/Practice Owner Required: No Allergies ibuprofen [From MOTRIN] Allergy (Unknown, Verified 10/02/23 12:58) SWELLING aspirin Allergy (Verified 01/28/24 19:24) Rash Motrin Allergy (Unknown, Uncoded 10/02/23 12:58) Unknown Medication List - Last Reconciled 02/18/24 by Francis Frank MD acetaminophen 500 mg PO Q8H PRN bupropion HCl SR 150 mg PO Q12H buspirone 20 mg PO BEDTIME clopidogrel (Plavix) 75 mg PO DAILY cyanocobalamin (vitamin B-12) 1,000 mcg PO DAILY isosorbide mononitrate ER 90 mg (1.5 x 60 mg) PO DAILY 90 days lorazepam 0.5 mg PO Q8H PRN metoprolol succinate ER 150 mg See Protocol PO DAILY 30 days ranolazine ER 1,000 mg PO BID 90 days risperidone 1.5 mg PO BEDTIME risperidone 0.5 mg PO QAM rosuvastatin (Crestor) 40 mg PO DAILY sumatriptan succinate 25 mg PO DAILY PRN HPI Comments Details: Lidia comes for follow-up. She has been doing okay from cardiac perspective. She has not had any recurrent significant chest pain syndrome. She has been taking all her medications. She does not exercise on a regular basis. Denies any heart failure symptoms. Blood pressures been well controlled. She is not smoking currently. [facility] Medical History Hypertension Spontaneous dissection of coronary artery Generalized anxiety disorder ACS (acute coronary syndrome) Chest pain Surgical History History of hysterectomy History of tubal ligation Family History Mother Hypertension Breast cancer Father Cancer Hypertension Maternal Uncle Diabetes Social History Alcohol intake: never Patient Tobacco Use Status: Former Tobacco user Years Smoked: 15 +/- service: No Review of Systems Const Denies chills, Denies fatigue, Denies fever(s), Denies frequent falls, Denies weakness, Denies weight gain and Denies weight loss ENT Denies dizziness Card Denies chest pain, Denies leg edema, Denies lightheadedness, Denies palpitations, Denies dyspnea, Denies dyspnea on exertion, Denies orthopnea and Denies other (loss of consciousness) Resp Denies cough, Denies dyspnea and Denies dyspnea on exertion GI Denies hematochezia and Denies change in stool character Musc Denies abnormal gait, Denies muscle weakness, Denies numbness, Denies radiating pain into limb and Denies tingling Neuro Denies abnormal gait, Denies dizziness, Denies frequent falls, Denies numbness, Denies tingling and Denies weakness Endo Denies fatigue and Denies palpitations Physical Exam Vital Signs: BMI result Body Mass Index 32.3 Const General: cooperative, healthy appearing, comfortable and no acute distress Orientation/consciousness: patient oriented x3 Neck Neck: Yes normal visual inspection Resp Effort & Inspection: normal respiratory effort Auscultation: clear to auscultation bilaterally, no crackles, no rales, no rhonchi and no wheezes Cardio Jugular venous distension: no JVD Rate: regular rate Rhythm: regular rhythm Heart sounds: S1 normal heart sound present, S2 normal heart sound present, no murmurs and no rubs Neuro General: patient oriented x3 Extrem General: Yes normal to inspection, No no pedal edema and No calf tenderness Psych Appearance: grossly normal Mental Status: mental status grossly normal Speech and movement: Normal speech and movement present Office Procedures EKG Details: E[place] [id number], Complete Assessment & Plan Assessment & Plan (1) Spontaneous dissection of coronary artery: Code(s): I25.42 - Coronary artery dissection Category: Medical Plan: Spontaneous coronary artery dissection which was treated conservatively as it should be. She has not had any recurrent significantly anginal symptoms and has had no recurrent hospitalization. Currently on triple antianginal therapy with isosorbide, metoprolol and Ranexa, tolerating well. Continue antiplatelet therapy. Discussed with her that there is no significant new development in this field. Continue follow with [facility] in [place]. Continue antiplatelet therapy. Complete smoking cessation was recommended. Continue statin therapy although role for statin and spontaneous coronary artery dissection is not well defined at this point time. Target goal LDL less than 70 mg/dL. (2) Hypertension: Code(s): I10 - Essential (primary) hypertension Category: Medical Plan: Hypertension which is currently well optimized advised to monitor blood pressure at home maintain a log. Goal blood pressure less than 130/84. Low-salt diet was discussed. Encouraged to increase activity level as tolerated. Will follow up in the clinic in 1 year's time, sooner p.r.n.. Thank you for allowing me to partake in her care Coding Level of Care Code Est Pt Level 4 (11657) Complex EM visit Add On G2211 Diagnoses Spontaneous dissection of coronary artery I25.42 Hypertension I10 CPT Codes EKG - CPT: 64140-[id number], Complete ([id number])
== END 2024-02-18 13:32 | disposition home or self-care (01) ==
PROVIDERS: PCP Internal Medicine Geriatric Medicine; Visit Provider Internal Medicine Cardiovascular Disease
DX: I25.42 Coronary artery dissection (principal); I10 Essential (primary) hypertension
CPT/HCPCS: 93010; 99214

== ENCOUNTER → 2024-02-18 13:24 | Outpatient (BNVA) | payer MEDICAID, SELFPAY | PROVIDERS: PCP Internal Medicine Geriatric Medicine; Visit Provider Internal Medicine Cardiovascular Disease | DX: I25.42 Coronary artery dissection (principal); I10 Essential (primary) hypertension; Z87.891 Personal history of nicotine dependence | CPT/HCPCS: 93005; 99212 ==

== ENCOUNTER 2024-04-06 23:25 | Emergency (ER) | payer MEDICAID, SELFPAY ==
--- NOTE | 2024-04-06 | ECG_ITS ---
Test Reason : EPIGASTRIC PAIN Blood Pressure : */* mmHG Vent. Rate : 89 BPM Atrial Rate : 89 BPM P-R Int : 140 ms QRS Dur : 76 ms QT Int : 400 ms P-R-T Axes : -2 7 15 degrees QTcB Int : 486 ms Normal sinus rhythm Nonspecific T wave abnormality Prolonged QT Abnormal ECG When compared with ECG of 23-Mar-2022 13:56, Nonspecific T wave abnormality now evident in Anterolateral leads Referred By: Generic ED Physician Electronically Signed By: ENRIQUE TERRY MD
--- NOTE | ~2024-04-06 | CT_ITS ---
CLINICAL HISTORY: abd pain, nausea, vomiting - DELAY IN SCAN AFTER INJECTION DUE TO PT VOMITING CT abdomen and pelvis with contrast Comparison: CT - CT ABDOMEN PELVIS W IV CON - 04/07/24 00:53 EST Findings: Lung bases clear. Normal gallbladder, bile ducts, liver, spleen, pancreas, and adrenal glands. Unremarkable kidneys, ureters, and urinary bladder. No free fluid or free air within the abdomen or pelvis. Left ovarian cysts. Right ovary normal. Hysterectomy. Normal stomach, small bowel, appendix, and colon. Abdominal aorta normal in size. Bones intact. IMPRESSION: No acute findings. This document has been electronically signed by: Karthik Yepez MD on 04/07/2024 01:58:14
[2024-04-06 23:38] VITALS: BP 139/98; PULSE 110; RESP 18; TEMP 36.6; O2SAT 95; BMI 29.0
[2024-04-06 23:58] LABS: MANUAL DIFF FLAG NO
[2024-04-06 23:59] LABS: Basophils Percent Auto 0.3 % (0-2); Eosinophils Absolute Auto 0.3 X10*3/uL (0.0-0.4); Eosinophils Percent Auto 2.1 % (0-4); Hematocrit 40.4 % (37.0-47.0); Hemoglobin 13.8 g/dl (12.0-16.0); Imm Gran Abs Auto 0.03 X10*3/uL (0.00-0.03); Imm Gran Pct Auto 0.2 % (0.0-0.4); Lymphocytes Absolute Auto 2.4 X10*3/uL (1.2-4.9); Lymphocytes Percent Auto 18.8 % (20-40); Mean Corpuscular HGB Conc 34.2 g/dl (31.0-35.0); Mean Corpuscular Hemoglobin 27.6 pg (27.0-33.0); Mean Corpuscular Volume 80.8 fL (80.0-98.0); Mean Platelet Volume 10.3 fL (9.4-12.3); Monocytes Absolute Auto 0.7 X10*3/uL (0.1-1.2); Monocytes Percent Auto 5.3 % (2-11); Neutrophils Absolute Auto 9.2 x10*3/uL (2.0-8.3); Neutrophils Percent Auto 73.3 % (45-73); Platelet Count 341 X10*3/uL (160-400); Red Cell Distribution Width 13.1 % (11.0-16.0); White Blood Count 12.6 X10*3/uL (4.8-10.8)
[2024-04-07 00:32] LABS: Alanine Aminotransferase 20 U/L (0-31); Albumin Level 4.6 g/dL (3.5-5.0); Alkaline Phosphatase 88 U/L (39-117); Anion Gap 14 (12-20); Aspartate Amino Transferase 22 U/L (5-31); Bilirubin Total 0.4 mg/dL (0.0-1.0); Blood Urea Nitrogen 13 mg/dL (9-16); Carbon Dioxide 22 mmol/L (22-29); Chloride 108 mmol/L (96-108); Creatinine Clr Calc Pharmacy 70.3; Estimated Glomerular Filt Rate > 60; Glucose Random 138 mg/dL (60-115); Lipase 53 U/L (8-78); Potassium 2.8 mmol/L (3.3-5.1); Sodium 141 mmol/L (135-145); Total Protein 8.8 g/dL (6.5-8.0)
[2024-04-07 00:33] LABS: Troponin-I High Sensitivity < 2.7 ng/L (<3.5-17.0)
[2024-04-07 00:36] LABS: Influenza A PCR NEGATIVE (Negative); Influenza B PCR NEGATIVE (Negative); Resp Syncy Virus RNA Qual PCR NEGATIVE (Negative); SARS COV2 PCR INHOUSE NEGATIVE (Negative)
--- NOTE | 2024-04-07 00:41 | ED_ITS ---
HPI - General Adult General Chief complaint: Abdominal Pain Stated complaint: vomiting, abdominal pain Time Seen by Provider: 04/07/24 00:41 Source: patient Mode of arrival: ambulatory Limitations: no limitations History of Present Illness ED Provider: Olinda Ramirez PA-C HPI narrative: Patient is a 48 year old assigned female at with a history of HTN, spontaneous dissection of coronary artery, and marijuana use presenting to the emergency department today with nausea, vomiting, and epigastric pain. Patient states that since 04/01/2024 she has had nausea, vomiting, and epigastric pain. Patient denies any dizziness, lightheadedness, fever, chills, blurry vision, double vision, loss of vision, chest pain, difficulty breathing, shortness of breath, back pain, night sweats, pain with urination, increased urinary frequency, increased urinary urgency, blood in her urine or stool, syncope or a near syncopal episode, recent trauma or falls, bowel incontinence, bladder incontinence, or any other complaints at this time. Onset (ago): day(s) () Location: abdomen Relieving factors: none Exacerbating factors: none Associated symptoms: nausea/vomiting Treatments prior to arrival: none Related Data Home Medications ?Medication ?Instructions ?Recorded ?Confirmed risperidone 1 mg tablet 1.5 mg PO BEDTIME 01/09/22 02/18/24 sumatriptan succinate 25 mg tablet 25 mg PO DAILY PRN Migraine 01/09/22 02/18/24 Headache buspirone 10 mg tablet 20 mg PO BEDTIME 02/03/22 02/18/24 rosuvastatin 40 mg tablet (Crestor) 40 mg PO DAILY 02/03/22 02/18/24 acetaminophen 500 mg tablet 500 mg PO Q8H PRN pain 02/14/22 02/18/24 cyanocobalamin (vitamin B-12) 1,000 mcg PO DAILY 02/14/22 02/18/24 1,000 mcg tablet risperidone 1 mg tablet 0.5 mg PO QAM 02/14/22 02/18/24 bupropion HCl 150 mg tablet,12 hr 150 mg PO Q12H 08/08/22 02/18/24 sustained-release lorazepam 0.5 mg tablet 0.5 mg PO Q8H PRN anxiety 08/08/22 02/18/24 Previous Rx's ?Medication ?Instructions ?Recorded clopidogrel 75 mg tablet (Plavix) 75 mg PO DAILY #30 tabs 01/10/22 metoprolol succinate 100 mg 150 mg PO DAILY 30 days #45 tabs 02/14/22 tablet,extended release 24 hr isosorbide mononitrate 60 mg 90 mg (1.5 x 60 mg) PO DAILY 90 02/20/24 tablet,extended release 24 hr days #135 tabs ranolazine 1,000 mg 1,000 mg PO BID 90 days #180 tabs 04/03/24 tablet,extended release,12 hr Allergies Allergy/AdvReac Type Severity Reaction Status Date / Time ibuprofen [From MOTRIN] Allergy Unknown SWELLING Verified 04/06/24 23:40 aspirin Allergy Rash Verified 04/06/24 23:40 Motrin Allergy Unknown Unknown Uncoded 04/06/24 23:40 Review of Systems 2 Constitutional: Constitutional: Reports no additional constitutional complaints, Denies chills, Denies fever(s) and Denies night sweats Eyes: Eyes: Reports no additional eye complaints, Denies blurry vision, Denies change in vision, Denies diplopia, Denies eye discharge, Denies loss of vision and Denies eye pain ENT: Denies dizziness Cardiovascular: Cardiovascular: Reports no additional cardiovascular complaints, Denies chest pain, Denies lightheadedness, Denies Loss of Consciousness and Denies dyspnea Respiratory: Respiratory: Reports no additional respiratory complaints and Denies dyspnea Gastrointestinal: Gastrointestinal: Reports no additional gastrointestinal complaints, Reports abdominal pain, Denies melena, Denies hematochezia, Denies change in bowel habits, Denies change in stool character, Reports nausea and Reports vomiting Genitourinary: Genitourinary: Denies hematuria, Denies urinary frequency, Denies dysuria, Denies urinary incontinence, Denies urinary hesitancy and Denies urinary urgency Musculoskeletal: Musculoskeletal: Reports no additional musculoskeletal complaints, Denies numbness and Denies tingling Neurologic: Denies dizziness, Denies loss of vision, Denies numbness and Denies tingling Psychiatric: Psychiatric: Reports no additional psychiatric complaints Endocrine: Endocrine: Reports no additional endocrine complaints Hematologic/Lymphatic: Hematologic/Lymphatic: Reports no additional hematologic/lymphatic complaints Allergic/Immunologic: Allergic/Immunologic: Reports no additional allergic/immunologic complaints PMFSH Past Medical History Attestation statement: The following information was validated with the patient. Source: old records reviewed and nursing notes reviewed Medical History Hypertension Spontaneous dissection of coronary artery Generalized anxiety disorder ACS (acute coronary syndrome) Chest pain Surgical History History of hysterectomy History of tubal ligation Family History Family History Mother Hypertension Breast cancer Father Cancer Hypertension Maternal Uncle Diabetes Social History Social History Alcohol intake: never Patient Tobacco Use Status: Former Tobacco user Years Smoked: 15 +/- Smoked in Last 30 Days: No Use of substances other than those prescribed or required for medical reasons: Yes Substance Use Type: Marijuana Advance Directives: No Advance Directives Information Provided: Yes Do you have a plan to hurt others: No Plan service: No Physical Exam ED Vital Signs: Vital Signs - 24 hr 04/06/24 23:38 04/07/24 01:27 04/07/24 02:00 Temperature 97.8 F Pulse Rate 110 H 82 Respiratory Rate 18 13 15 Blood Pressure 139/98 H Pulse Oximetry 95 Oxygen Delivery Method Room Air BMI result Body Mass Index 29.0 Const General: cooperative, no acute distress, alert and awake Nutritional Appearance: well nourished Orientation/consciousness: patient oriented x3 Limitations: no limitations HENMT Head: Yes normal to inspection and Yes atraumatic Ears: hearing grossly normal bilaterally and external ears normal General nose exam: Normal external nose present, no nasal discharge noted and no epistaxis Face and sinus: Yes normal facial exam, No abrasion and No laceration Mouth: Normal oral and palatal mucosa present, no drooling and no muffled voice Eyes General: appearance normal, both eyes and all related structures Periorbital: periorbital findings normal Eyelids: Yes eyelids normal Conjunctivae: conjunctivae normal Pupils: Equal, round and reactive pupils present EOM: EOMs intact bilaterally Neck Neck: Yes normal visual inspection, Yes full ROM and Yes no lymphadenopathy Chest Chest palpation & inspection: normal inspection of the chest Resp Effort & Inspection: normal respiratory effort and able to speak in complete sentences GI Inspection: Yes normal to inspection Palpation (GI): Soft to palpation, not firm, Tenderness to palpation present (GI) in the epigastrum, in the LLQ, in the RLQ, in the LUQ and in the RUQ, no guarding and not rigid Neuro General: patient oriented x3 and moves all extremities Cranial nerves: Yes Equal, round and reactive pupils present Cognition (Neuro): normal cognition Extrem General: Yes normal to inspection, Yes full ROM and Yes capillary refill normal Psych Appearance: grossly normal Mental Status: mental status grossly normal Affect: normal affect Attitude: cooperative Thought process: Normal thought process present Thought content: Normal thought content present Insight: Good insight present (Psych) Medications Administered Generic Name Dose Route Start Last Admin Trade Name Freq PRN Reason Stop Dose Admin Potassium Chloride 10 meq in 100 mls @ 100 mls/hr 04/07/24 00:45 04/07/24 01:29 Potassium Chloride/H20 IV 04/07/24 02:44 100 mls/hr Q1H JORDEN Administration Discontinued Medications Generic Name Dose Route Start Last Admin Trade Name Freq PRN Reason Stop Dose Admin Diphenhydramine HCl 25 mg 04/07/24 00:44 04/07/24 01:25 Diphenhydramine Hcl 50 Mg/Ml Vial IVPUSH 04/07/24 00:45 25 mg ONCE ONE Administration Iohexol 85 ml 04/07/24 01:14 04/07/24 01:14 Iohexol 350 Mg/Ml 100 Ml Infus..Btl IV 04/07/24 01:15 85 ml ONCE ONE Administration Metoclopramide HCl 10 mg 04/07/24 01:37 04/07/24 01:57 Metoclopramide Hcl 10 Mg/2 Ml Vial IVPUSH 04/07/24 01:38 10 mg ONCE ONE Administration Morphine Sulfate 4 mg 04/07/24 00:44 04/07/24 01:27 Morphine Sulfate 4 Mg/Ml Cartridge IVPUSH 04/07/24 00:45 4 mg ONCE ONE Administration Protocol Potassium Chloride 20 meq 04/07/24 00:44 04/07/24 01:25 Potassium Chloride Er 20 Meq Tab.Er.Prt PO 04/07/24 00:45 20 meq ONCE ONE Administration Medical Decision Making Medical Decision Making MDM Narrative: Patient is a 48 year old assigned female at with a history of HTN, spontaneous dissection of coronary artery, and marijuana use presenting to the emergency department today with nausea, vomiting, and epigastric pain. Patient's physical exam was as noted in the physical exam portion of this note. Patient's blood work showed an elevated WBC count of 12.6 and a K+ of 2.8. Patient's EKG showed a mildly prolonged QT interval. Patient's abdomen/pelvis CT showed no acute process. I explained my physical exam findings as well as all test results to the patient. I answered all questions asked by the patient. Patient was given IV Morphine, Benadryl, Reglan, Potassium, and Magnesium for her abdominal pain, nausea/vomiting, hypokalemia and QT prolongation. Patient signed out to Dr. Ceja pending PO challenge. Differential Diagnosis Differential Diagnoses: The differential diagnosis associated with the presentation includes CHS Abdominal pain Nausea Vomiting Cholecystitis Admission/Observation Consideration of admission/observation: Escalation of care including admission/observation considered Patient's disposition will be determined after PO challenge. Lab Data [facility] Lab Attestation statement: I reviewed the patient's lab results. My interpretation of these results are in the [facility] Rationale portion of this note. 04/06/24 23:51 04/06/24 23:51 Labs: Lab Results 04/06/24 Range/Units 23:51 WBC 12.6 H (4.8-10.8) X10*3/uL RBC 5.00 (4.20-5.50) X10*6/uL Hgb 13.8 (12.0-16.0) g/dl Hct 40.4 (37.0-47.0) % MCV 80.8 (80.0-98.0) fL MCH 27.6 (27.0-33.0) pg MCHC 34.2 (31.0-35.0) g/dl RDW 13.1 (11.0-16.0) % Plt Count 341 D (160-400) X10*3/uL MPV 10.3 (9.4-12.3) fL Immature Gran % (Auto) 0.2 (0.0-0.4) % Neut % (Auto) 73.3 H (45-73) % Lymph % (Auto) 18.8 L (20-40) % [place] % (Auto) 5.3 (2-11) % Eos % (Auto) 2.1 (0-4) % Baso % (Auto) 0.3 (0-2) % Lymph # (Auto) 2.4 (1.2-4.9) X10*3/uL [place] # (Auto) 0.7 (0.1-1.2) X10*3/uL Eos # (Auto) 0.3 (0.0-0.4) X10*3/uL Baso # (Auto) 0.0 (0.0-0.2) X10*3/uL Abs Immat Gran (auto) 0.03 (0.00-0.03) X10*3/uL Absolute Neuts (auto) 9.2 H (2.0-8.3) x10*3/uL Absolute Nucleated RBC 0.000 (0.0-0.012) X10*3/uL Nucleated RBC % (auto) 0.0 (0.0-0.2) /100WBC Sodium 141 (135-145) mmol/L Potassium 2.8 L* (3.3-5.1) mmol/L Chloride 108 (96-108) mmol/L Carbon Dioxide 22 (22-29) mmol/L Anion Gap 14 (12-20) BUN 13 (9-16) mg/dL Creatinine 0.82 (0.5-1.4) mg/dL Estim Creat Clear Calc 70.3 Estimated GFR > 60 Random Glucose 138 H (60-115) mg/dL Calcium 10.0 (8.4-10.2) mg/dL Magnesium 1.7 (1.6-2.6) mg/dL Total Bilirubin 0.4 (0.0-1.0) mg/dL AST 22 (5-31) U/L ALT 20 (0-31) U/L Alkaline Phosphatase 88 (39-117) U/L Troponin I High Sens < 2.7 (<3.5-17.0) ng/L Total Protein 8.8 H (6.5-8.0) g/dL Albumin 4.6 (3.5-5.0) g/dL Lipase 53 (8-78) U/L Influenza Type A (PCR) NEGATIVE (Negative) Influenza Type B (PCR) NEGATIVE (Negative) RSV RNA Qual (PCR) NEGATIVE (Negative) SARS-CoV-2 RNA (RT-PCR) NEGATIVE (Negative) Independent Interpretation I performed an independent interpretation of an: EKG and CT Scan Interpretation: My interpretation is in agreement with the radiologist's impression of this imaging study. L Report Number: [id number]: Total DLP = 496.00 mGy-cm CLINICAL HISTORY: abd pain, nausea, vomiting - DELAY IN SCAN AFTER INJECTION DUE TO PT VOMITING CT abdomen and pelvis with contrast Comparison: CT - CT ABDOMEN PELVIS W IV CON - 04/07/24 00:53 EST Findings: Lung bases clear. Normal gallbladder, bile ducts, liver, spleen, pancreas, and adrenal glands. Unremarkable kidneys, ureters, and urinary bladder. No free fluid or free air within the abdomen or pelvis. Left ovarian cysts. Right ovary normal. Hysterectomy. Normal stomach, small bowel, appendix, and colon. Abdominal aorta normal in size. Bones intact. IMPRESSION: No acute findings. This document has been electronically signed by: Karthik Yepez MD on 04/07/2024 01:58:14 Dictated By: Karthik Yepez MD Signed By: Electronically signed by Karthik Yepez MD 04/07/24 0159 Vent. Rate: 89 BPM Atrial Rate: 89 BPM P-R Int: 140 ms QRS Dur: 76 ms QT Int: 400 ms P-R-T Axes: -2 7 15 degrees QTcB Int: 486 ms Normal sinus rhythm Nonspecific T wave abnormality Prolonged QT When compared with ECG of 23-Mar-2022 13:56, Nonspecific T wave abnormality now evident in Anterolateral leads DD/ [id number] Radiology Impression Discussion of test interpretation with radiology: I have reviewed the radiologist's reading. Critical Care Time Critical Care Time Critical Care Time: Yes Total Critical Care Time: 36 Attestation: I spent 36 minutes of Critical Care Time with this patient. This does not include time spent on separately reported billable procedures. Discharge Plan Discharge Clinical Impression: Nausea & vomiting, Abdominal pain, Acute hypokalemia Patient Disposition: Still a Patient Prescriptions: No Action isosorbide mononitrate 60 mg tablet extended release 24 hr 90 mg PO DAILY 90 Days Qty: 135 3RF ranolazine 1,000 mg tablet extended release 12 hr 1,000 mg PO BID 90 Days Qty: 180 3RF sumatriptan succinate 25 mg tablet 25 mg PO DAILY PRN (Reason: Migraine Headache) risperidone 1 mg tablet 1.5 mg PO BEDTIME clopidogrel [Plavix] 75 mg tablet 75 mg PO DAILY Qty: 30 0RF buspirone 10 mg tablet 20 mg PO BEDTIME acetaminophen 500 mg tablet 500 mg PO Q8H PRN (Reason: pain) cyanocobalamin (vitamin B-12) 1,000 mcg tablet 1,000 mcg PO DAILY risperidone 1 mg tablet 0.5 mg PO QAM lorazepam 0.5 mg tablet 0.5 mg PO Q8H PRN (Reason: anxiety) bupropion HCl 150 mg tablet sustained-release 12 hr 150 mg PO Q12H rosuvastatin [Crestor] 40 mg tablet 40 mg PO DAILY metoprolol succinate 100 mg tablet extended release 24 hr 150 mg PO DAILY 30 Days Qty: 45 3RF Protocol: Hold for SBP/HR < HOLD for SBP < : 90 HOLD for HR < : 60 Print Language: Taiwanese
[2024-04-07 00:57] LABS: Magnesium 1.7 mg/dL (1.6-2.6)
[2024-04-07] MEDS: iohexoL 350 MG/ML 100 ML INFUS..BTL 85 ML IV (01:14)
[2024-04-07] MEDS: diphenhydrAMINE HCL 50 MG/ML VIAL 25 MG IVPUSH (01:25)
[2024-04-07] MEDS: Potassium Chloride ER 20 MEQ TAB.ER.PRT PO (01:25)
[2024-04-07 01:27] VITALS: RESP 13
[2024-04-07] MEDS: Morphine Sulfate 4 MG/ML CARTRIDGE IVPUSH (01:27)
[2024-04-07] MEDS: Potassium Chloride/H20 10 MEQ/100 ML PIGGYBACK 100 MEQ IV ×2 (01:29→02:42)
--- NOTE | 2024-04-07 01:31 | MHC.EDTECH ---
Attempted to get a urine,pt is unable to at this time,RN at bedside is aware
[2024-04-07] MEDS: Metoclopramide HCl 10 MG/2 ML VIAL IVPUSH (01:57)
[2024-04-07 02:00] VITALS: PULSE 82; RESP 15
[2024-04-07] MEDS: Magnesium Sulfate/D5W 1 GM/100 ML PIGGYBACK IV (02:08)
--- NOTE | 2024-04-07 02:14 | PC.NURSE ---
Pt a&ox4, no signs of distress. Pt medicated per mar Plan of care ongoing.
[2024-04-07 02:17] LABS: Appearance Urine Clear; Color Urine Yellow; Glucose Urine UA Negative (Negative); Leukocyte Esterase Urine Negative (Negative); Nitrite Urine Negative (Negative); PH 6.5 (5.0-9.0); Specific Gravity - Urine >= 1.030 (1.005-1.025); UMIC TRIGGER UACC YES; Urine Blood Negative (Negative); Urine Ketones Negative (Negative); Urine Protein 100 (2+) mg/dL (Neg-Trace)
--- NOTE | 2024-04-07 02:45 | PC.NURSE ---
Pt medicated per may. Plan of care ongoing.
--- NOTE | 2024-04-07 02:46 | PC.NURSE ---
Dick OIL FIELD CASER notified and aware of pts critical lab value of sodium 117. No new orders at this time. Plan of care ongoing.
[2024-04-07 02:59] LABS: Bacteria Urine None Seen (None Seen); Hyaline Casts Urine 0-2 /LPF (0-2); RBC Urine 0-2 /HPF (0-2); Squamous Epithelial Cell Urine 0-2 /HPF (0-2); WBC Urine 0-5 /HPF (0-5)
[2024-04-07 03:35] VITALS: BP 147/75; PULSE 89; RESP 14; TEMP 36.6; O2SAT 98
[2024-04-07 07:00] LABS: UPreg QC Valid NO
[2024-04-07 07:01] LABS: Urine Pregnancy INCONCLUSIVE (NEGATIVE)
[2024-04-07 09:07] VITALS: BP 131/61; PULSE 83; RESP 14; TEMP 36.7; O2SAT 99
[2024-04-07 09:17] LABS: HCG Quantitative 7 mIU/mL
[2024-04-07 10:05] LABS: UPreg QC Valid YES; Urine Pregnancy NEGATIVE (NEGATIVE)
[2024-04-07 10:53] VITALS: BP 131/61; PULSE 83; RESP 14; TEMP 36.7; O2SAT 99
== END 2024-04-07 10:59 | disposition home or self-care (01) ==
PROVIDERS: Physician Assistant Medical; Emergency Provider Emergency Medicine; PCP Internal Medicine Geriatric Medicine
DX: E87.6 Hypokalemia (principal); R10.13 Epigastric pain; R11.2 Nausea with vomiting, unspecified; I10 Essential (primary) hypertension; Z79.899 Other long term (current) drug therapy; Z03.818 Encounter for observation for suspected exposure to other biological agents ruled out
CPT/HCPCS: 0241U; 36415; 74177; 80053; 81001; 81025; 83690; 83735; 84484; 84702; 85025; 93005; 96365; 96366; 96375; 99285; J1200; J2270; J2765; J3475; J3480; Q9967

== ENCOUNTER → 2024-04-06 23:49 | Outpatient (BNV) | payer MEDICAID, SELFPAY | PROVIDERS: Emergency Provider Emergency Medicine; PCP Internal Medicine Geriatric Medicine; Visit Provider Internal Medicine Cardiovascular Disease | DX: I45.81 Long QT syndrome (principal) | CPT/HCPCS: 93010 ==

== ENCOUNTER → 2024-04-07 00:44 | Outpatient (BNV) | payer MEDICAID, SELFPAY | PROVIDERS: Emergency Provider Emergency Medicine; PCP Internal Medicine Geriatric Medicine; Visit Provider Radiology Diagnostic Radiology | DX: R10.9 Unspecified abdominal pain (principal); R11.2 Nausea with vomiting, unspecified | CPT/HCPCS: 74177 ==

== ENCOUNTER 2024-06-12 16:23 | Outpatient (REF) | payer MEDICAID, SELFPAY ==
[2024-06-12 16:37] LABS: Oxycodone Screen Urine Positive (Not Detect)
== END 2024-06-12 16:24 | disposition home or self-care (01) ==
LOC: HO.HHCLNP 16:23
PROVIDERS: Visit Provider Nurse Practitioner
DX: F41.1 Generalized anxiety disorder (principal)
CPT/HCPCS: 80307

== ENCOUNTER 2024-10-24 11:54 | Outpatient (REF) | payer MEDICAID, SELFPAY ==
[2024-10-24 14:09] LABS: Anion Gap 10 (12-20); Blood Urea Nitrogen 18 mg/dL (9-16); Calcium 9.3 mg/dL (8.4-10.2); Carbon Dioxide 29 mmol/L (22-29); Chloride 109 mmol/L (96-108); Estimated Glomerular Filt Rate > 60; Potassium 3.8 mmol/L (3.3-5.1); Sodium 144 mmol/L (135-145)
== END 2024-10-24 11:55 | disposition home or self-care (01) ==
LOC: HO.HHCL 11:54
PROVIDERS: PCP Internal Medicine Geriatric Medicine; Visit Provider Internal Medicine Geriatric Medicine
DX: E87.6 Hypokalemia (principal)
CPT/HCPCS: 36415; 80048

== ENCOUNTER 2024-11-19 14:27 | Outpatient (REF) | payer MEDICAID, SELFPAY ==
--- OUTSIDE RECORDS SUMMARY | 2024-11-19 16:45 | XMS_ITS | Clinical Summary ---
Author Organization [facility] Address [address] [place] [address] Care Team Providers Care Skein Dyer Name Role Phone Unavailable Primary Care Provider Unavailabl e Source Comments PLEASE NOTE, if this patient is a minor, it may be UNLAWFUL to discuss sensitive information that is contained in these records (such as FAMILY PLANNING, MENTAL HEALTH or SUBSTANCE ABUSE) with the minor patient's parent or other person without the patient's specific authorization.[facility] Social History Tobacco Use Types Packs/Day Years Used Date Smoking Tobacco: Never Assessed Comments Unknown Sex and Gender Information Value Date Recorded Sex Assigned at Female 11/18/2024 7:03 AM PDT Legal Sex Female 7:03 AM PDT Gender Identity Female 11/18/2024 7:03 AM PDT Sexual Orientation Not on file Plan of Treatment Upcoming Encounters Date Type Department Care Team (Late st Contact Info) Description 01/08/2025 3:00 PM EDT Behavioral Health Visit [facility] [address] [place] [id number] Brianna Denis APRN [address] [place] [address] Health Maintenance Due Date Last Done Comments Anxiety Screening 1973 HPV Screening 1973 Hepatitis C Screening 1973 Pap + HPV 1973 Tobacco Screening 1973 HIV Screening 1988 Hypertension Screening (#1) 09/17/1991 Cervical Cancer Screening 1994 Pap Smear 1994 Breast Cancer Screening (Mammogram) 2013 CT Colonography 2018 Colonoscopy 2018 Colorectal Cancer Screening 2018 FIT/gFOBT 2018 Fecal DNA 2018 Flexible Sigmoidoscopy 2018 Imm-Hepatitis B (2 of 3 - 19 + 3-dose series) 06/12/2023 05/15/2023 Imm-Zoster, Recombinant (1 of 2) 09/17/2023 Alcohol and Drug Screen 03/19/2024 Depression Annual Screen 03/19/2024 Qrl-CHDFR-37 (3 - 2024- season) 11/17/202402/14/ 021, 01/20/2021 Imm-Influenza (#1) 2024 12/21/2023, 1 , 12/28/2021, Additional history exists Imm-DTaP/Tdap/Td (2 - Td or Tdap) 01/30/2026 016 Diabetes Screening 10/25/2027 10/24/2024 Lipid Screening 01/06/2029 01/07/2024 Imm-Pneumococcal 50+ Completed 04/04/2023 Cervical Ablation/Cold-Knife Conization Discontinued Cervical Cryotherapy Discontinued Colposcopy Discontinued Endometrial Biopsy Discontinued Excision/Leep Discontinued HPV Genotyping Discontinued Vaginal Pap Discontinued Vulvoscopy Discontinued Insurance [facility]
--- OUTSIDE RECORDS SUMMARY | 2024-11-19 16:45 | XMS_ITS | Encounter Summary ---
Author Organization [employer] Address [address] [place] [address] [address] [place] [address] Care Team Providers Care Civil Division Commander Deputy Sheriff Name Role Phone Name, Tyshawn DIA Primary Care Provider [phone] Reason for Visit * Reason Onset Date Comments Med Refill 08/10/2022 Encounter Details Date Type Department Care Team ([facility] st Contact Info) Description 08/10/2022 Telephone [facility] MEDICINE [address] [place], [place] [phone] Name, MD Tyshawn [address] [place] [address] Med Refill Social History Tobacco Use Types Packs/Day Years Used Date Smoking Tobacco: Former Cigarettes Smokeless Tobacco: Never Alcohol Use Standard Drinks/Week Comments Never 0 (1 standard drink = 0.6 oz pur e alcohol) PHQ-2 Answer Date Recorded Patient Health Questionnaire-2 Score 6 07/10/2022 Comments Unknown Sex and Gender Information Value Date Recorded Sex Assigned at Female 01/16/2022 10:29 AM EDT Legal Sex Female 10:29 AM EDT Gender Identity Female 01/16/2022 10:29 AM EDT Sexual Orientation Straight 01/16/2022 10 :29 AM EDT documented as of this encounter Miscellaneous Notes * Telephone Encounter - Lisa Guzman LPN - 08/10/2022 11:12 AM EDT Medication pended to PCP awaiting approval. * Telephone Encounter - Matt Banegas - 08/10/2022 11:03 AM EDT Tc from pt requesting med refill Acetaminophen Extra Strength 500 MG tablet documented in this encounter Plan of Treatment Upcoming Encounters Date Type Department Care Team (Late st Contact Info) Description 12/18/2024 1:00 PM EDT Clinical Support [facility] MEDICINE [address] [place] [address] Gladys De La Cruz RN documented as of this encounter Visit Diagnoses Not on filedocumented in this encounter Additional Health Concerns Assessment Noted Time PHQ-9 Depression Total Score: 12 023 1:55 PM EDT documented as of this encounter Care Teams Civil Division Commander Deputy Sheriff Relationship Specialty Start Date End Date Name, MD Tyshawn [address] [place] [address] PCP - General Family Medicine 08/10/15 documented as of this encounter
--- OUTSIDE RECORDS SUMMARY | 2024-11-19 16:45 | XMS_ITS | Encounter Summary ---
Author Organization [facility] Address [address] [facility] [address] [place] [address] Care Team Providers Care Coater Operator Insulation Board Name Role Phone Name, Tyshawn DIA Primary Care Provider [phone] Reason for Visit * Reason Comments Med Refill Encounter Details Date Type Department Care Team ([facility] st Contact Info) Description 01/28/2024 Refill [facility] MEDICINE [address] [place], [place] [id number] Name, MD Tyshawn [address] [place] [address] Social History Tobacco Use Types Packs/Day Years Used Date Smoking Tobacco: Former Cigarettes Passive Smoke Exposure: Current Smokeless Tobacco: Never Alcohol Use Standard Drinks/Week Comments Never 0 (1 standard drink = 0.6 oz pur e alcohol) Depression Answer Date Recorded Patient Health Questionnaire-9 Score 4 07/05/2023 Patient Health Questionnaire-9 Score 4 07/05/2023 Last PHQ-9: Questionnaire Data Not on file 0 07/05/2023 Housing Stability Answer Date Recorded What is your housing situation today? I have benjamin campos 01/02/[address] you li ve. Do you have problems with any of the following? None of the above 01/02/2023 Food Insecurity Answer Date Recorded Within the past 12 months, y ou worried that your food would run out before you got money to buy more: Never True 01/02/2023 Within the past 12 months,th e food you bought just didn't last and you didn't have enough money to get more: Never True Transportation Answer Date Recorded In the past 12 months, has l ack of transportation kept you from medical appts, meetings, work or from getting things needed for daily living? No 01/02/2023 Utilities Answer Date Recorded In the past 12 months, has t he electric, gas, oil or water company threatened to shut off services in your home? No 01/02/2023 Depression Answer Date Recorded Patient Health Questionnaire-2 Score 1 07/05/2023 Comments Unknown Sex and Gender Information Value Date Recorded Sex Assigned at Female 01/16/2022 10:29 AM EDT Legal Sex Female 10:29 AM EDT Gender Identity Female 01/16/2022 10:29 AM EDT Sexual Orientation Straight 01/16/2022 10 :29 AM EDT documented as of this encounter Plan of Treatment Upcoming Encounters Date Type Department Care Team (Late st Contact Info) Description 12/18/2024 1:00 PM EDT Clinical Support [facility] MEDICINE [address] [place] [address] Gladys De La Cruz RN documented as of this encounter Visit Diagnoses Not on filedocumented in this encounter Additional Health Concerns Assessment Noted Time PHQ-9 Depression Total Score: 4 07/05/19 24 1:13 PM EDT documented as of this encounter Care Teams Coater Operator Insulation Board Relationship Specialty Start Date End Date Name, MD Tyshawn [address] [place] [address] PCP - General Family Medicine 08/10/15 documented as of this encounter
--- OUTSIDE RECORDS SUMMARY | 2024-11-19 16:45 | XMS_ITS | Encounter Summary ---
Author Organization [facility] Address [address] [place] [address] Phone Care Team Providers Care Boat Captain Name Role Phone Name, Tyshawn DIA Primary Care Provider [phone] Encounter Details Date Type Department Care Team (Late st Contact Info) Description 09/20/2022 Procedure Pass [facility], [address] [address] Social History Tobacco Use Types Packs/Day Years Used Date Smoking Tobacco: Every Day Cigarettes Smokeless Tobacco: Never Education Answer Date Recorded Are you interested in more education? Not on armand e 07/15/2022 Are you concerned about learning? Not on file 07/15/2022 No 07/15/2022 No 07/15/2022 Digital Access Answer Date Recorded No 08/10/2022 No 08/10/2022 Reliable internet access at home? Not on file 08/10/2022 Device with a working camera? Not on file Comments Unknown Sex and Gender Information Value Date Recorded Sex Assigned at Choose not to disclose 04/2021 4:08 PM EST Legal Sex Female 4:01 PM EST Gender Identity Choose not to disclose 4:08 PM EST Sexual Orientation Choose not to disclose 2021 4:08 PM EST documented as of this encounter Plan of Treatment Not on file documented as of this encounter Visit Diagnoses Not on filedocumented in this encounter Care Teams Boat Captain Relationship Specialty Start Date End Date Name, MD Tyshawn [address] [place] [address] PCP - General Geriatric Psychiatry 02/17/22 documented as of this encounter Additional Source Comments The information contained in this document represents components of the legal health record. It is not the complete legal health record.[facility]
--- OUTSIDE RECORDS SUMMARY | 2024-11-19 16:45 | XMS_ITS | Encounter Summary ---
Author Organization [employer] Address [address] [facility] [address] [place] [address] Care Team Providers Care Locomotive Boilermaker Name Role Phone Name, Tyhsawn DIA Primary Care Provider [phone] Encounter Details Date Type Department Care Team (Late st Contact Info) Description 11/18/2024 Telephone [facility] MEDICINE [address] [place] [address] Hattie Mercado, RN Social History Tobacco Use Types Packs/Day Years Used Date Smoking Tobacco: Former Cigarettes Passive Smoke Exposure: Past Smokeless Tobacco: Never Alcohol Use Standard Drinks/Week Comments Never 0 (1 standard drink = 0.6 oz pur e alcohol) Depression Answer Date Recorded Patient Health Questionnaire-9 Score 14 10/24/2024 Patient Health Questionnaire-9 Score 14 10/24/2024 Last PHQ-9: Questionnaire Data Not on file 0 10/24/2024 Housing Stability Answer Date Recorded What is your housing situation today? I have benjamin campos 10/24/[address] you li ve. Do you have problems with any of the following? None of the above 10/24/2024 Food Insecurity Answer Date Recorded Within the past 12 months, y ou worried that your food would run out before you got money to buy more: Never True 10/24/2024 Within the past 12 months,th e food you bought just didn't last and you didn't have enough money to get more: Never True 10/2024 Transportation Answer Date Recorded In the past 12 months, has l ack of transportation kept you from medical appts, meetings, work or from getting things needed for daily living? I am not sure 10/24/2024 Utilities Answer Date Recorded In the past 12 months, has t he electric, gas, oil or water company threatened to shut off services in your home? No 10/24/2024 Depression Answer Date Recorded Patient Health Questionnaire-2 Score 4 10/24/2024 Internet Access Answer Date Recorded Internet Access Q1 Yes 10/24/2024 Internet Access Q2 Not on file 10/24/2024 Comments Unknown Sex and Gender Information Value Date Recorded Sex Assigned at Female 01/16/2022 10:29 AM EDT Legal Sex Female 10:29 AM EDT Gender Identity Female 01/16/2022 10:29 AM EDT Sexual Orientation Straight 01/16/2022 10 :29 AM EDT documented as of this encounter Miscellaneous Notes * Telephone Encounter - Hattie Mercado RN - 11/18/2024 2:34 PM EDT Incoming call from DENNIS Lizama from the [facility] forms department requesting for a T-Spot to be ordered for pt for Adult Day Health. Order placed and forms nurse made aware. No further questions or concerns at this time. documented in this encounter Plan of Treatment Upcoming Encounters Date Type Department Care Team (Late st Contact Info) Description 12/18/2024 1:00 PM EDT Clinical Support [facility] MEDICINE [address] [place] [id number] Gladys De La Cruz, DENNIS Scheduled Orders Name Type Priority Associated Diagnoses Orde r Schedule T-SPOT .TB Lab Routine Screening-pulmonary TB Expected: 11/18/2024 (Approximate), Expires: 11/18/2025 documented as of this encounter Visit Diagnoses Diagnosis Screening-pulmonary TB Screening examination for pulmonary tuberculosis documented in this encounter Additional Health Concerns Assessment Noted Time PHQ-9 Depression Total Score: 14 025 11:31 AM EDT documented as of this encounter Care Teams Locomotive Boilermaker Relationship Specialty Start Date End Date Name, MD Tyshawn [address] [place] [address] PCP - General Family Medicine 08/10/15 documented as of this encounter
--- OUTSIDE RECORDS SUMMARY | 2024-11-19 16:45 | XMS_ITS | Encounter Summary ---
Author Organization [employer] Address [address] [facility] 7 [place] [address] Care Team Providers Care Malt House Loader Name Role Phone Name, Tyshawn DIA Primary Care Provider [phone] Reason for Visit * Reason Comments Med Refill Encounter Details Date Type Department Care Team ([facility] st Contact Info) Description 03/13/2023 Refill [facility] MEDICINE [address] [place], [place] [phone] Name, MD Tyshawn [address] [place] [address] Social History Tobacco Use Types Packs/Day Years Used Date Smoking Tobacco: Former Cigarettes Passive Smoke Exposure: Current Smokeless Tobacco: Never Alcohol Use Standard Drinks/Week Comments Never 0 (1 standard drink = 0.6 oz pur e alcohol) Depression Answer Date Recorded Patient Health Questionnaire-9 Score 2 02/26/2023 Patient Health Questionnaire-9 Score 2 02/26/2023 Last PHQ-9: Questionnaire Data Not on file 1 04/29/2022 Housing Stability Answer Date Recorded What is [...] Answer Date Recorded Patient Health Questionnaire-2 Score 0 02/26/2023 Comments Unknown Sex and Gender Information Value [...] Description 12/18/2024 1:00 PM EDT Clinical Support [facility] MEDICINE [address] [place] [address] Gldays De La Cruz RN documented as of this encounter Visit Diagnoses Not on filedocumented in this encounter Additional Health Concerns Assessment Noted Time PHQ-9 Depression Total Score: 2 02/27/20 23 9:58 AM EST documented as of this encounter Care Teams Malt House Loader Relationship Specialty Start Date End Date Name, MD Tyshawn [address] [place] [address] PCP - General Family Medicine 08/10/15 documented as of this encounter
--- OUTSIDE RECORDS SUMMARY | 2024-11-19 16:46 | XMS_ITS | Encounter Summary ---
Author Organization [employer] Address [address] [facility] 7 [place] [address] Care Team Providers Care Trawl Net Maker Name Role Phone Name, Tyshawn DIA Primary Care Provider [phone] Reason for Visit * Reason Onset Date Comments Appointment Request 06/05/2024 Encounter Details Date Type Department Care Team ([facility] st Contact Info) Description 06/05/2024 Telephone [facility] MEDICINE [address] [place], [place] [phone] Name, MD Tyshawn [address] [place] [address] Appointment Request Social History Tobacco Use Types Packs/Day Years [...] encounter Miscellaneous Notes * Telephone Encounter - Aidan Leroy - 06/05/2024 8:27 AM EDT Tc from pt requesting a callback to R/S appointment from 06/03/2023 for follow up Please return call [phone] documented in this encounter Plan of Treatment Upcoming Encounters Date Type Department Care Team (Late st Contact Info) Description 12/18/2024 1:00 PM EDT Clinical Support [facility] MEDICINE [address] [place] [address] Gladys De La Cruz, DENNIS documented as of this encounter Visit Diagnoses Not on filedocumented in this encounter Additional Health Concerns Assessment Noted Time PHQ-9 Depression Total Score: 4 07/05/19 24 1:13 PM EDT documented as of this encounter Care Teams Trawl Net Maker Relationship Specialty Start Date End Date Name, MD Tyshawn [address] [place] [address] PCP - General Family Medicine 08/10/15 documented as of this encounter
--- OUTSIDE RECORDS SUMMARY | 2024-11-19 16:46 | XMS_ITS | Encounter Summary ---
Author Organization [employer] Address [address] [facility] [address]t [place] [address] Care Team Providers Care Retail Field Representative Name Role Phone Name, Tyshawn DIA Primary Care Provider [phone] Reason for Visit * Reason Onset Date Comments triage 03/23/2022 Encounter Details Date Type Department Care Team ([facility] st Contact Info) Description 03/23/2022 Telephone [facility] MEDICINE [address] [place], [place] [phone] Name, MD Tyshawn [address] [place] [address] triage Social History Tobacco Use Types Packs/Day Years Used Date Smoking Tobacco: Never Assessed PHQ-2 Answer Date Recorded Patient Health Questionnaire-2 Score 2 03/06/2022 Comments Unknown Sex and Gender Information Value Date Recorded Sex Assigned at Female 01/16/2022 10:29 AM EDT Legal Sex Female 10:29 AM EDT Gender Identity Female 01/16/2022 10:29 AM EDT Sexual Orientation Straight 01/16/2022 10 :29 AM EDT documented as of this encounter Miscellaneous Notes * Telephone Encounter - Luba Carey RN - 03/23/2022 12:25 PM EST Triage call Pt reports chest pain at time of this call , pain continues. Pt reports it is in the middle of the chest between breasts. Pt reports it has become constant for 1/2 to an hour at a time. Pt denies pain in jaw, neck, shoulder,arm . Pt does have hx of heart disease in the family . No dx ofHTN. Pt BP this morning is 149/92. Advised Pt to seek evaluation in ED today and Pt agreed. Protocol Used: Chest Pain (Adult) Protocol-Based Disposition: Go to ED/C Now (or to Office with PCP Approval) Positive Triage Question: * Chest pain lasting longer than 5 minutes and occurred in last 3 days (72 hours) (Exception: feelsexactly the same as previously diagnosed heartburn and has accompanying sour taste in mouth) * All higher-acuity triage questions were negative * Telephone Encounter - Matt Banegas - 03/23/2022 10:55 AM EST Symptoms: High Blood Pressure - Caller Reports, Chest Pain - Adult Outcome: Transfer to a nurse or provider NOW! Reason: This is the only possible outcome for these symptoms The caller accepted this outcome documented in this encounter Plan of Treatment Upcoming Encounters Date Type Department Care Team (Late st Contact Info) Description 12/18/2024 1:00 PM EDT Clinical Support [facility] MEDICINE [address] [place] [address] Gladys De La Cruz, DENNIS documented as of this encounter Visit Diagnoses Not on filedocumented in this encounter Additional Health Concerns Assessment Noted Time PHQ-9 Depression Total Score: 9 03/06/20 22 10:24 AM EST documented as of this encounter Care Teams Retail Field Representative Relationship Specialty Start Date End Date Name, MD Tyshawn [address] [place] [address] PCP - General Family Medicine 08/10/15 documented as of this encounter
--- OUTSIDE RECORDS SUMMARY | 2024-11-19 16:46 | XMS_ITS | Encounter Summary ---
Author Organization [employer] Address [address] [facility] [address] [place] [address] Care Team Providers Care Brick Washer Name Role Phone Name, Tyshawn DIA Primary Care Provider [phone] Reason for Visit * Reason Comments Med Refill Encounter Details Date Type Department Care Team ([facility] st Contact Info) Description 08/29/2024 Refill [facility] [address] [place], [place] [phone] Name, MD Tyshawn [address] [place] [address] Social History Tobacco Use Types Packs/Day Years [...] Description 12/18/2024 1:00 PM EDT Clinical Support [facility] MEDICINE [address] [place] [id number] Gladys De La Cruz RN documented as of this encounter Visit Diagnoses Not on filedocumented in this encounter Additional Health Concerns Assessment Noted Time PHQ-9 Depression Total Score: 4 07/05/19 24 1:13 PM EDT documented as of this encounter Care Teams Brick Washer Relationship Specialty Start Date End Date Name, MD Tyshawn [address] [place] [address] PCP - General Family Medicine 08/10/15 documented as of this encounter
--- OUTSIDE RECORDS SUMMARY | 2024-11-19 16:46 | XMS_ITS | Clinical Summary ---
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 Donotuseinterpreter, Image - 11/27/[address] [place] [address] Mammography Report Signed Patient: Lidia HarleyMR#: [id number] : 1975Acct:[id number] Age/Sex: 47 / FADM Date: 11/17/22 Loc: HO.MAMMO Attending Dr: Tyshawn Del Castillo MD Ordering Physician: Tyshawn Del Castillo MDResults: 1Negative Date of Service: 11/17/22Follow Up: 1 Year From Orig inal Mammogram Procedure(s): MM tomosynthesis screening BI Accession Number(s): [id number] cc: Tyshawn Del Castillo MD EXAMINATION: MM SCREENING DIGITAL BREAST TOMOSYNTHESIS, BILATERAL CLINICAL INFORMATION: Screening. Asymptomatic. COMPARISON: Mammography: This study is compared with prior exams dating back to 2016. TECHNIQUE: Digital breast tomosynthesis is performed in both the craniocaudal and mediolateral oblique views along with computer-aided detection (CAD). Synthesized 2D images are generated from the tomosynthesis. FINDINGS: The breasts are heterogeneously dense, which may obscure small masses (ACR BI-RADS breast composition Category c). There are no significant masses, abnormal calcifications, or other abnormalities. MM/MM tomosynthesis screening BI IMPRESSION: No mammographic evidence of malignancy. ASSESSMENT: BI-RADS BI-RADS 1 - Negative RECOMMENDATION: Routine annual mammography screening. 1 year F/U This examination should not preclude the clinical evaluation of a suspicious palpable abnormality. This patient's information was entered into a reminder system with a target due date for their next mammogram. Dictated By: Maggie Loja MD Signed By: <Electronically signed by Maggie Loja MD in OV> 11/24/22 193 DD/ 1355 TD/TT: Customer Support Associate: Tyshawn Del Castillo MD IMG BI PROCEDURES Edited Result - Final from Last 3 Months or Most Recently Relevant to Health Maintenance Insurance [employer] [employer] [place] AD[place] Care Teams Margin Trimmer Relationship Specialty Start Date End Date Name, MD Tyshawn [address] [place] [phone] PCP - General Family Medicine 08/10/15
[2024-11-22 08:38] LABS: TS Negative Control Passed; TS Panel A 0; TS Panel B 0; TS Positive Control Passed; TSpotTB Negative (Negative)
== END 2024-11-19 14:28 | disposition home or self-care (01) ==
LOC: HO.HHCL 14:27
PROVIDERS: PCP Internal Medicine Geriatric Medicine; Visit Provider Internal Medicine Geriatric Medicine
DX: Z11.1 Encounter for screening for respiratory tuberculosis (principal)
CPT/HCPCS: 36415; 86481

== ENCOUNTER 2025-02-10 09:18 | Outpatient (AMB) | payer MEDICAID, SELFPAY ==
[2025-02-10 09:40] VITALS: BP 102/62; PULSE 69; BMI 27.6
--- NOTE | 2025-02-10 09:40 | A.OFFVIS_ITS ---
Vital Signs 02/10/25 09:40 Height 5 ft Weight 141 lb 1.533 oz BMI 27.6 BP 102/62 Blood Pressure Location Lt brachial Position Sitting Pulse 69 Pulse Source Monitor Intake Visit Reasons: 1 Year Follow up Absorption And Adsorption Engineer Required: No Allergies ibuprofen (From MOTRIN) Allergy (Unknown, Verified 02/10/25 09:43) SWELLING aspirin Allergy (Verified 02/10/25 09:43) Rash Motrin Allergy (Unknown, Uncoded 02/10/25 09:43) Unknown Medication List - Last Reconciled 02/10/25 by Desiree Ling, [facility] acetaminophen 500 mg PO Q8H PRN bupropion HCl SR 150 mg PO Q12H buspirone 20 mg PO BEDTIME clopidogrel (Plavix) 75 mg PO DAILY isosorbide mononitrate ER 90 mg (1.5 x 60 mg) PO DAILY 90 days lorazepam 0.5 mg PO Q8H PRN metoprolol succinate ER 150 mg See Protocol PO DAILY 30 days ondansetron 4 mg PO DAILY PRN 5 days ranolazine ER 1,000 mg PO BID 90 days risperidone 1.5 mg PO BEDTIME risperidone 0.5 mg PO QAM rosuvastatin (Crestor) 40 mg PO DAILY sumatriptan succinate 25 mg PO DAILY PRN HPI HPI 1 Year Follow up: Details: Lidia is a 49-year-old female with past medical history of hypertension who was admitted to [facility] 01/09/2022 with chest pain, acute coronary syndrome and then underwent cardiac catheterization at [facility] [place] showing 2 vessel SCAD with obstruction lesion in the RCA.? She was managed medically.? On follow-up visits she has reported exertional chest discomfort and medications have been titrated. She was referred to [facility] for further evaluation. Today he has reports that she has been doing well since her last visit 02/18/24. She will get sharp pain in her chest randomly. Overall this has been better than prior reports. No shortness of breath, PND, orthopnea or edema. No heart palpitations, lightheadedness, presyncope, syncope. She is trying to remain active. She is grieving over the loss of her 3-month-old grandchild who suddenly this month. She is taking all her medications as directed. [facility] Medical History Hypertension Spontaneous dissection of coronary artery Generalized anxiety disorder ACS (acute coronary syndrome) Chest pain Surgical History History of hysterectomy History of tubal ligation Family History Mother Hypertension Breast cancer Father Cancer Hypertension Maternal Uncle Diabetes Social History Alcohol intake: never Patient Tobacco Use Status: Former Tobacco user Years Smoked: 15 +/- Substance Use Type: Marijuana service: No Review of Systems Const Details: crying - grief over recent loss of young grandchild All systems reviewed & are unremarkable except as noted in HPI and below ENT Denies dizziness Card Reports chest pain (random pains), Denies chest pain at rest, Denies chest pain with activity, Denies rapid heart rate, Denies pedal edema, Denies edema, Denies leg edema, Denies lightheadedness, Denies palpitations, Denies dyspnea, Denies dyspnea on exertion and Denies orthopnea Resp Denies cough, Denies dyspnea and Denies dyspnea on exertion GI Denies hematochezia and Denies change in stool character Musc Denies abnormal gait, Reports limited range of motion, Reports muscle cramps, Denies muscle weakness, Denies numbness, Denies radiating pain into limb, Denies stiffness and Denies tingling Neuro Denies abnormal gait, Denies dizziness, Denies numbness and Denies tingling Endo Denies palpitations Physical Exam Vital Signs: Last Vital Signs Pulse 69 02/10/25 09:40 BP 76/56 L 02/10/25 09:40 BMI result Body Mass Index 27.6 Const Other: upset, tearful General: cooperative, healthy appearing, comfortable and no acute distress Orientation/consciousness: patient oriented x3 Neck Neck: Yes normal visual inspection Resp Effort & Inspection: normal respiratory effort Auscultation: clear to auscultation bilaterally, no crackles, no rales, no rhonchi and no wheezes Cardio Jugular venous distension: no JVD Rate: regular rate Rhythm: regular rhythm Heart sounds: S1 normal heart sound present, S2 normal heart sound present, no murmurs and no rubs Neuro General: patient oriented x3 Extrem General: Yes normal to inspection, No no pedal edema and No calf tenderness Psych Appearance: grossly normal Mental Status: mental status grossly normal Speech and movement: Normal speech and movement present Office Procedures EKG Details: Today, read by me, normal sinus rhythm, low voltage QRS, rate 69, Qtc 462ms [id number], Complete Assessment & Plan Assessment & Plan (1) Spontaneous dissection of coronary artery: Code(s): I25.42 - Coronary artery dissection Category: Medical Plan: History of Spontaneous coronary artery dissection which was treated conservatively as it should be. She reports intermittent chest discomfort but not like prior hospital admission. Currently on triple antianginal therapy with isosorbide, metoprolol and Ranexa, tolerating well. Continue antiplatelet therapy. Discussed with her that there is no significant new development in this field. Continue follow with [facility] in [place]. Complete smoking cessation was recommended. Continue statin therapy although role for statin and spontaneous coronary artery dissection is not well defined at this point time. Target goal LDL less than 70 mg/dL. (2) Hypertension: Code(s): I10 - Essential (primary) hypertension Category: Medical Plan: Blood pressure goal less than 130/80. Blood pressure on low side today, asymptomatic. Reviewed the need for good hydration. No med changes made at this time. Plan I discussed with the patient that the current chest discomfort appears stable and has not worsened since the last visit. I noted the significant psychosocial stress the patient is experiencing due to a recent family and we discussed its potential impact on the patient's symptoms. I reviewed that the EKG performed today was normal. I advised that no changes to the medication regimen are necessary at this time. I emphasized the importance of self-care, including proper sleep and nutrition, and utilizing family or other support systems for managing grief. We agreed on a follow-up in one year if things remain stable, and I provided instructions to return sooner for any increase in chest pain, new shortness of breath, palpitations, or feeling faint. Patient Instructions: - Continue taking all your medications as they have been prescribed. - Make sure to take care of yourself by trying to get enough sleep and eating well. - Continue to talk to your family or other supportive people to help with your stress and grief. - Plan to return for a follow-up appointment in one year. - Please contact us to be seen sooner if you experience worsening chest pain, new trouble breathing, a feeling of your heart racing, or if you feel like you are going to faint. Patient was informed and verbally consented to the use of an ambient scribe for clinic note documentation during this visit. Visit time spent on chart review, interview, assessment, orders, documentation. Coding Level of Care Code Complex visit Add On G2211 Diagnoses Spontaneous dissection of coronary artery I25.42 Hypertension I10 CPT Codes EKG - CPT: 94395-[id number], Complete ([id number]) Time Spent (min) 24
--- OUTSIDE RECORDS SUMMARY | 2025-02-10 10:26 | XMS_ITS | Encounter Summary ---
Author Organization [employer] Address [address] [facility] 7 [place] [address] Care Team Providers Care Tobacco Sizer Name Role Phone Name, Tyshawn DIA Primary Care Provider Reason for Visit * Reason Comments Med Refill Encounter Details Date Type Department Care Team ([facility] st Contact Info) Description 02/03/2025 Refill [facility] [address] [place], [place] [phone] Pricila Hawk NP [address] [place], [place] [phone] PTSD (post-traumatic stress disorder) Social History Tobacco Use Types Packs/Day Years [...] Care Team (Late st Contact Info) Description 02/24/2025 2:30 PM EST Office Visit [facility] [address] [place] [phone] Joe Godinez MD [address] [place] [phone] 02/25/2025 11:30 AM EST Office Visit [address] [address] NameTyshawn MD [address] [place] [phone] documented as of this encounter Visit Diagnoses Diagnosis PTSD (post-traumatic stress disorder) Posttraumatic stress disorder documented in this encounter Additional Health Concerns Assessment Noted Time PHQ-9 Depression Total Score: 14 025 11:31 AM EDT documented as of this encounter Care Teams Tobacco Sizer Relationship Specialty Start Date End Date NameTyshawn MD [address] [place] [phone] PCP - General Family Medicine 08/10/15 documented as of this encounter
--- OUTSIDE RECORDS SUMMARY | 2025-02-10 10:26 | XMS_ITS | Encounter Summary ---
Author Organization [employer] Address [address] [facility] 7 [place] [address] Care Team Providers Care Underground Bolting Machine Operator Name Role Phone Name, Tyshawn DIA Primary Care Provider [phone] Reason for Visit * Reason Comments Med Refill Encounter Details Date Type Department Care Team ([facility] st Contact Info) Description 03/13/2023 Refill [facility] [address] [place], [place] [phone] Name, MD Tyshawn [address] [place] [address] Social History Tobacco Use Types Packs/Day Years [...] Description 02/24/2025 2:30 PM EST Office Visit [facility]INE [address] [place] [phone] Joe Godinez MD [address] [place] [phone] 02/25/2025 11:30 AM EST Office Visit [address] [address] NameTyshawn MD [address] [place] [phone] documented as of this encounter Visit Diagnoses Not on filedocumented in this encounter Additional Health Concerns Assessment Noted Time PHQ-9 Depression Total Score: 2 02/27/20 23 9:58 AM EST documented as of this encounter Care Teams Underground Bolting Machine Operator Relationship Specialty Start Date End Date NameTyshawn MD [address] [place] [phone] PCP - General Family Medicine 08/10/15 documented as of this encounter
--- OUTSIDE RECORDS SUMMARY | 2025-02-10 10:26 | XMS_ITS | Encounter Summary ---
Author Organization [employer] Address [address] [facility] [address] [place] [address] Care Team Providers Care Settlement Clerk Name Role Phone Name, Tyshawn DIA Primary Care Provider [phone] Reason for Visit * Reason Comments Med Refill Encounter Details Date Type Department Care Team ([facility] st Contact Info) Description 08/29/2024 Refill [facility] [address] [place], [place] [phone] Name, MD Tyshawn [address] [place] [address] Social History Tobacco Use Types Packs/Day Years [...] Description 02/24/2025 2:30 PM EST Office Visit [facility] [address] [place] [phone] Joe Godinez MD [address] [place] [address] 02/25/2025 11:30 AM EST Office Visit [address] [address] NameTyshawn MD [address] [place] [phone] documented as of this encounter Visit Diagnoses Not on filedocumented in this encounter Additional Health Concerns Assessment Noted Time PHQ-9 Depression Total Score: 4 07/05/19 24 1:13 PM EDT documented as of this encounter Care Teams Settlement Clerk Relationship Specialty Start Date End Date NameTyshawn MD [address] [place] [phone] PCP - General Family Medicine 08/10/15 documented as of this encounter
--- OUTSIDE RECORDS SUMMARY | 2025-02-10 10:26 | XMS_ITS | Clinical Summary ---
Author Organization [employer] Address [address] [place] [address] 7 [place] [address] Care Team Providers Care Traveling Clerk Name Role Phone Name, Tyshawn DIA Primary Care Provider [phone] Allergies Active Allergy Reactions Criticality Noted Date [...] 022 Active FeroSul 325 (65 Fe) MG tabletIndications :Iron deficiency anemia, unspecified iron deficiency anemia type TAKE 1 TABLET BY MOUTH EVERY DAY 90 tablet 2 023 Active olopatadine (Pataday) 0.2 % ophthalmic solutionIndicatio ns:Eye irritation Administer 1 drop into affected eye(s) [...] 12 024 Active risperiDONE (RisperDAL) 1 MG tabletIndications :PTSD (post-traumatic stress disorder) Take 1 tablet (1 mg) by mouth 2 times daily. 180 tablet 3 024 Active cyanocobalamin (Vitamin B-12) 1000 MCG tabletIndications :Seasonal allergic rhinitis, unspecified trigger TAKE 1 TABLET BY MOUTH EVERY DAY 90 tablet 3 024 Active metoprolol succinate XL (Toprol-XL) 100 MG 24 hr tablet TAKE 1 AND 1/2 TABLETS BY MOUTH EVERY DAY 135 tablet 3 02/03/20 25 4:08 PM EST 025 Active rosuvastatin (Crestor) 40 MG tabletIndications :High cholesterol TAKE 1 TABLET BY MOUTH EVERY DAY 90 tablet 3 025 Active busPIRone (Buspar) 10 MG tabletIndications :PTSD (post-traumatic stress disorder) Take 1 tablet (10 mg) by mouth 3 times daily. 270 tablet 3 025 Active buPROPion XL (Wellbutrin XL) 150 MG 24 hr tablet Take 1 tablet (150 mg) by mouth Once per day. Do not crush, chew, or split. 90 tablet 3 025 Active naloxone (Narcan) 4 mg/0.1 mL nasal sprayIndications: Long-term current use of benzodiazepine Administer 1 spray (4 mg) into affected nostril(s) if needed for opioid reversal. May repeat every 2-3 minutes if needed, alternating nostrils, until medical assistance becomes available. 2 each 3 025 2025 Active Tirzepatide-Weigh t Management (Zepbound) 5 MG/0.5ML solution auto-injector Inject 0.5 mL (5 mg) under the skin 1 (one) time per week. INJECT ONE PEN (= 5 MG) SUBCUTANEOUSLY ONCE A WEEK 2 mL 3 025 2025 Active clopidogrel (Plavix) 75 MG tablet TAKE 1 TABLET BY MOUTH EVERY DAY 90 tablet 1 025 Active LORazepam (Ativan) 0.5 MG tabletIndications :PTSD (post-traumatic stress disorder) TAKE 1 TABLET BY MOUTH EVERY 8 HOURS NEEDED FOR ANXIETY FOR UP TO 28 DAYS 21 tablet Active Acetaminophen Extra Strength 500 MG tablet TAKE 1 TABLET BY MOUTH EVERY 8 HOURS NEEDED FOR PAIN 84 tablet 1 02/03/20 4:08 PM EST Active Acetaminophen Extra Strength 500 MG tablet TAKE 1 TABLET BY MOUTH EVERY 8 HOURS NEEDED FOR PAIN 84 tablet 1 025 2024 Discontinued Active Problems Problem Noted [...] to the ER Non-cardiac chest pain 01/02/2023 3 Spontaneous dissection of coronary artery 2022 Non-ST elevation IL (NSTEMI) (CMS/HCC) 3 Assessment & Plan (03/29/2022 7:52 AM EST): -Pt has been experiencing daily chest discomfort and ORDAZ following NSTEMI with [facility] in Dec 2021 -Denies any current worsening or active symptoms at time of exam -Following with [facility], upcoming appt 04/04/22 -Planning to establish with [facility] clinic in the next 1-2 months [...] medication management. She is advised to call [facility] with any questions or concerns. All her [...] continue medications as usual. She will contact [facility] regarding counseling intake. F/U with me in [...] continue medications as usual. She will contact [facility] regarding counseling intake. F/U with me in [...] that patient explore options for counseling, e.g. [facility] in [place], and she will call herself. F/U with me in 4-6 weeks. She agrees with the plan. Hypertension 02/23/2022 Insomnia 02/23/2022 Kidney stone 02/23/2022 Migraine 02/23/2022 H/O: hysterectomy 06/10/2018 [place] of foot 01/31/2016 Seasonal allergic rhinitis 01/31/2016 Verruca vulgaris 01/31/2016 Recurrent major depressive episodes, moderate (C MS/HCC) 04/15/2015 Encounters * This document contains information received from the source organization and may not represent a complete record from that organization. Date Type Department Care Team Description 02/03/2025 Telephone [facility] [address] [place] [address] Tyshawn Del Castillo MD Med Refill; ? Lorazepam from quality control auditor 02/03/2025 Refill [facility] [address] [place] [address] Pricila Hawk NP PTSD (post-traumatic stress disorder) 02/02/2025 Refill [facility] [address] [place] [address] Pricila Hawk NP PTSD (post-traumatic stress disorder) 01/22/2025 Refill [facility] [address] [place] [address] Pricila Hawk NP PTSD (post-traumatic stress disorder) 01/22/2025 Refill [facility] [address] [place], [place] [phone] Tyshawn Del Castillo MD 01/01/2025 Refill [facility] [address] [place] [address] Tyshawn Del Castillo MD PTSD (post-traumatic stress disorder) 12/18/2024 1:00 PM EDT Clinical Support [facility] [address] [place] [address] Gladys De La Cruz, DENNIS Long-term current use of benzodiazepine (Primary Dx) 12/18/[address] [address] Gladys De La Cruz, DENNIS EBER scoring; Forgot Lorazepam; Lorazepam count discrepancy 12/18/2024 Travel 12/11/[address] [address] [place] nov recalls 12/03/2024 Refill [facility] [address] [facility] [place] [address] Name, MD Tyshawn 11/24/2024 Refill [facility] [address] [place] [address] NameTyshawn MD PTSD (post-traumatic stress disorder) 11/18/2024 Telephone [facility] [address] [place] [address] Hattie Mercado RN 11/12/2024 Refill [facility] [address] [place] [address] Name, MD Tyshawn from Last 3 Months Immunizations Immunization Administration [...] Description 02/24/2025 2:30 PM EST Office Visit [facility] [address] [place] [address] Joe Godinez MD [address] [place] [address] 02/25/2025 11:30 AM EST Office Visit [facility] [place] [address] Name, MD Tyshawn Ashly [place] [address] Health Maintenance Due Date Last Done Comments CT Colonography 1973 Colonoscopy 1973 Colorectal Cancer Screening 1973 Dental Oral Exam 1973 Dental Prophylaxis 1973 FIT DNA/Cologuard 1973 FIT 1973 FOBT 1973 HIV Screening 1973 Sigmoidoscopy 1973 Alcohol/Substance Use Screening 1985 Family Planning (PISQ) 1988 Pap Smear 1994 HPV/Cotest 09/17/2003 Hepatitis B Vaccines (2 of 3 - 19+ 3-dose series) 06/12/2023 05/15/2023 RSV Patients and Patients Aged 60 years or older (1 - Risk 50-74 years 1-dose series) 09/17/2023 Zoster Vaccines (1 of 2) 09/17/2023 Dental X-Ray: Bitewings 10/18/2023 10/16/2022 COVID-19 Vaccine ( - season) 2024 02/14/2021, 01/20/2021 Influenza Vaccine (#1) 2024 , 01/03/2023, 12/28/2021, Additional history exists Mammogram 11/17/2024 11/17/2022, 05/0 03/2018, 07/17/2018, Additional history exists Depression Monitoring 04/26/2025 10/24/2024, 025 Disability Screening 10/24/2025 10/24/2024 SDOH Screening 10/24/2025 10/24/2024 Tobacco Screening 10/24/2025 10/24/2024 DTaP/Tdap/Td Vaccines (2 - Td or Tdap) 01/30/2026 01/31/2016 Dental X-Ray: Full Mouth 11/06/2027 11/04/2024, 05/17 Lipid Panel 01/06/2029 01/07/2024, 06/2 05/2022, 09/22/2021 Pneumococcal Vaccine: 50+ Years Completed 04/04/2023 Hepatitis [...] Procedure Name Priority Date/Time Associated Diagnosis Comments POCT ELIANA-14 URINE DRUG SCREEN Routine 12/18/2024 1:14 PM EDT Long-term current use of benzodiazepine T-SPOT(R).TB Routine 11/19/2024 2:31 PM EDT LIPID PANEL, STANDARD Routine 01/07/2024 9:00 AM EDT Class 2 severe obesity due to excess calories with serious comorbidity in adult, unspecified BMI (CMS/HCC) History of IL (myocardial infarction) HEPATITIS C ANTIBODY Routine 05/15/2023 10:33 AM EST Need for hepatitis C screening test BI MAMMOGRAM SCREENING TOMOSYNTHESIS BILATERAL Routine 11/17/2022 1:55 PM EDT BITEWING - SINGLE RADIOGRAPHIC IMAGE Routine 10/16/2022 3:30 PM EDT Dental abscess from Last 3 Months or Most Recently Relevant to Health Maintenance Results * POCT ELIANA-14 Urine Drug Screen (12/18/2024 1:14 PM EDT) THC Positive Negative Cocaine Screen, [...] obtained by clean catch procedure / Unknown 12/18/2024 1:14 PM EDT Gladys Mathew RN - 12/18/2024 1:14 PM EDT UTOX cup Lot#[id number] Exp. 12/23/25 Internal Pass Control us Tyshawn Del Castillo MD POINT OF CARE TEST ENTER/EDIT OR DERABLES Final Result * T-SPOT??.TB (11/19/2024 2:31 PM EDT) [facility] T Spot TB Negative Negative [facility] Comment:A negative test resu lt does not exclude the possibilityof exposure to or infection with Mycobacteriumtuberculosis (M. tuberculosis). Patients with recentexposure to TB infected individuals exhibiting anegative T-SPOT.TB result should be considered forretesting within 6 weeks or if other relevant clinicalsymptoms indicate. Results from T-SPOT.TB testing mustbe used in conjunction with each individual'sepidemiological history, current medical status,and results of other diagnostic evaluations.The T-SPOT.TB test is qualitative and results arereported as positive, borderline, or negative, giventhat the test controls perform as expected. In linewith the Centers for Disease Control and Prevention's2010 recommendation to report quantitative measurementsalongside the qualitative result, the laboratoryprovides spot counts for informational purposes only.The T-SPOT.TB test should not be interpreted as aquantitative test. TS PANEL A 0 [facility] TS PANEL B 0 [facility] Negative Control Passed [facility] Positive Control Passed [facility] Comment:For additional infor tierney, please refer tohttp://education.OneTag/faq/AHX914(This link is being provided for informational/educational purposes only.)THIS TEST WAS PERFORMED AT:[employer] [place] [address]SUWVQPEWENCESLAO JOHNSON MD,PHD 11/19/2024 2:31 PM EDT 11/19/2024 4:17 PM EDT us Tyshawn Del Castillo MD LAB BLOOD ORDERABLES Final Resul t Performing Organization Address [facility] de Phone Number [facility] [address] [place] [phone] * (ABNORMAL) Lipid Panel, Standard (01/07/2024 9:00 AM EDT) Triglycerides 105 <150 mg/dL [facility] Comment:Desirable Triglyceri de: less than 150 mg/dLBorderline High Triglyceride 150-199 mg/dLHigh Triglyceride: 200-499 mg/dLVery High Triglyceride: greater than or equal to 5OO mg/dL Cholesterol 117 <200 mg/dL [facility] Comment:Desirable Cholestero l: less than 200 mg/dLBorderline High Cholesterol: 200-239 mg/dLHigh Cholesterol: greater than 239 mg/dL LDL Cholesterol Calculated 57 <100 mg/dL [facility] Comment:Desirable LDL: less than 100 mg/dLNear Optimal/Above Optimal LDL: 110- 129 mg/dLBorderline High LDL: 130-159 mg/dLHigh LDL: 160-189 mg/dLVery High LDL: greater than or equal to 190 mg/dL HDL Cholesterol 39(L) >40 mg/dL [facility] Comment:Desirable HDL: great er than 40 mg/dL Note: This HDL assay may give artificially low results in patients with liver disease. Blood Venous blood specimen / Unknown 01/07/2024 9:00 AM EDT 01/07/2024 12:05 PM EDT us Tyshawn Del Castillo MD LAB BLOOD ORDERABLES Final Resul t Performing Organization Address [facility] Co de Phone Number [facility] [address] [place] [phone] * Hepatitis C Ab (05/15/2023 10:33 AM EST) Hepatitis C Antibody Nonreactive Nonreactive [facility] Comment:Antibodies to HCV no t detected; does not exclude early acuteHCV infection. Blood Venous blood specimen / Unknown 05/15/2023 10:33 AM EST 05/15/2023 1:09 PM EST Tyshawn Del Castillo MD LAB BLOOD ORDERABLES Final Resul t [facility] [address] [place] [phone] * BI Mammogram Screening Tomosynthesis Bilateral (11/17/2022 1:55 PM EDT) Anatomical Region Laterality Modality Breast Bilateral Mammography 11/17/2022 1:55 PM EDT Narrative 11/24/2022 7:38 PM EDT [facility] [address] [place] [address] Mammography Report Signed Patient: Lidia Harley MR#: [id number] : 1975 Acct:[id number] Age/Sex: 47 / F ADM Date: 11/17/22 Loc: HO.MAMMO Attending Dr: Tyshawn Del Castillo MD Ordering Physician: Tyshawn Del Castillo MD Results: 1Negative Date of Service: 11/17/22 Follow Up: 1 Year From Orig inal Mammogram Procedure(s): MM tomosynthesis screening BI Accession Number(s): [id number] cc: Tyshawn Del Castillo MD EXAMINATION: MM [...] in OV> 11/24/22 193 DD/ 1355 TD/TT: Reel Repairer: Procedure Note Donotuseinterpreter, Image - 11/27/2022 [facility] [address] [place], [place] [address] Mammography Report Signed Patient: Lidia HarleyMR#: [id number] : 1975Acct:[id number] Age/Sex: 47 / FADM Date: 11/17/22 Loc: HO.MAMMO Attending Dr: Tyshawn Del Castillo MD Ordering Physician: Tyshawn Del Castillo MDResults: 1Negative Date of Service: 11/17/22Follow Up: 1 Year From Orig inal Mammogram Procedure(s): MM tomosynthesis screening BI Accession Number(s): [id number] cc: Tyshawn Del Castillo MD EXAMINATION: MM [...] by Maggie Loja MD in OV> 11/24/22 1934 DD/ 1355 TD/TT: Reel Repairer: Tyshawn Abundio DIA IMG BI PROCEDURES Edited Result - Final from Last 3 Months or Most Recently Relevant to Health Maintenance Insurance [facility] C3 DENTAL-[facility] MEDICAID STAND ADULT Care Teams Traveling Clerk Relationship Specialty Start Date End Date Name, MD Tyshawn [address] [place] [address] PCP - General Family Medicine 08/10/15
--- OUTSIDE RECORDS SUMMARY | 2025-02-10 10:26 | XMS_ITS | Encounter Summary ---
Author Organization [employer] Address [address] [facility] 7 [place] [address] Care Team Providers Care Conveyor Worker Name Role Phone Name, Tyshawn DIA Primary Care Provider [phone] Reason for Visit * Reason Onset Date Comments Appointment Request 06/05/2024 Encounter Details Date Type Department Care Team ([facility] st Contact Info) Description 06/05/2024 Telephone [facility] [address] [place], [place] [phone] Name, MD Tyshawn [address] [place] [address] Appointment Request Social History Tobacco Use Types [...] 06/03/2023 for follow up Please return call [phone] documented in this encounter Plan of Treatment Upcoming Encounters Date Type Department Care Team (Late st Contact Info) Description 02/24/2025 2:30 PM EST Office Visit [facility] [address] [place] [phone] Joe Godinez MD [address] [place] [phone] 02/25/2025 11:30 AM EST Office Visit [facility] [address] [place] [address] Tyshawn Del Castillo MD [address] [place] [phone] documented as of this encounter Visit Diagnoses Not on filedocumented in this encounter Additional Health Concerns Assessment Noted Time PHQ-9 Depression Total Score: 4 07/05/19 24 1:13 PM EDT documented as of this encounter Care Teams Conveyor Worker Relationship Specialty Start Date End Date Tyshawn Del Castillo MD [address] [place] [phone] PCP - General Family Medicine 08/10/15 documented as of this encounter
--- OUTSIDE RECORDS SUMMARY | 2025-02-10 10:26 | XMS_ITS | Encounter Summary ---
Author Organization [employer] Address [address] [facility] 7 [place] [address] Care Team Providers Care Claims Configuration Analyst Name Role Phone Name, Tyshawn DIA Primary Care Provider [phone] Reason for Visit * Reason Comments Med Refill Encounter Details Date Type Department Care Team ([facility] st Contact Info) Description 02/02/2025 Refill [facility] [address] [place], [place] [phone] Pricila Hawk NP [address] [place], [place] [phone] PTSD (post-traumatic stress disorder) Social History Tobacco [...] Description 02/24/2025 2:30 PM EST Office Visit [facility] [address] [place] [phone] Joe Godinez MD [address] [place] [phone] 02/25/2025 11:30 AM EST Office Visit [address] [address] NameTyshawn MD [address] [place] [address] documented as of this encounter Visit Diagnoses Diagnosis PTSD (post-traumatic stress disorder) Posttraumatic stress disorder documented in this encounter Additional Health Concerns Assessment Noted Time PHQ-9 Depression Total Score: 14 025 11:31 AM EDT documented as of this encounter Care Teams Claims Configuration Analyst Relationship Specialty Start Date End Date NameTyshawn MD [address] [place] [phone] PCP - General Family Medicine 08/10/15 documented as of this encounter
--- OUTSIDE RECORDS SUMMARY | 2025-02-10 10:26 | XMS_ITS | Encounter Summary ---
Author Organization [employer] Address [address] [place] [address] 7 [place] [address] Care Team Providers Care Silver Service Waiter Name Role Phone Name, Tyshawn DIA Primary Care Provider [phone] Reason for Visit * Reason Onset Date Comments Med Refill 08/10/2022 Encounter Details Date Type Department Care Team ([facility] st Contact Info) Description 08/10/2022 Telephone [facility] [address] [place], [place] [phone] Name, MD Tyshawn [address] [place] [address] Med Refill Social History Tobacco Use Types [...] [facility] [address] [place] [phone] Joe Godinez MD [address] [place] [phone] 02/25/2025 11:30 AM EST Office Visit [address] [address] Name, [place] [address] documented as of this encounter Visit Diagnoses Not on filedocumented in this encounter Additional Health Concerns Assessment Noted Time PHQ-9 Depression Total Score: 12 023 1:55 PM EDT documented as of this encounter Care Teams Silver Service Waiter Relationship Specialty Start Date End Date Name, [place] [address] PCP - General Family Medicine 08/10/15 documented as of this encounter
--- OUTSIDE RECORDS SUMMARY | 2025-02-10 10:26 | XMS_ITS | Encounter Summary ---
Author Organization [employer] Address [address] [facility] 7 [place] [address] Care Team Providers Care Nursery Worker Name Role Phone Name, Tyshawn DIA Primary Care Provider [phone] Reason for Visit * Reason Comments Med Refill Encounter Details Date Type Department Care Team ([facility] st Contact Info) Description 01/28/2024 Refill [facility] [address] [place], [place] [phone] Name, MD Tyshawn [address] [place] [address] Social History Tobacco Use Types Packs/Day Years [...] Description 02/24/2025 2:30 PM EST Office Visit [facility] [address] [place] [phone] Joe Godinez MD [address] [place] [address] 02/25/2025 11:30 AM EST Office Visit [address] [address] NameTyshawn MD [address] [place] [address] documented as of this encounter Visit Diagnoses Not on filedocumented in this encounter Additional Health Concerns Assessment Noted Time PHQ-9 Depression Total Score: 4 07/05/19 24 1:13 PM EDT documented as of this encounter Care Teams Nursery Worker Relationship Specialty Start Date End Date NameTyshawn MD [address] [place] [address] PCP - General Family Medicine 08/10/15 documented as of this encounter
--- OUTSIDE RECORDS SUMMARY | 2025-02-10 10:26 | XMS_ITS | Clinical Summary ---
Author Organization [facility] Address [address] [facility] [address] [place] [address] Phone Care Team Providers Care Creative Consultant Name Role Phone Name, Tyshawn DIA Primary Care Provider [phone] Allergies No known active allergies Medications metoprolol succinate (TOPROL-XL) 100 MG 24 hr tablet Take 150 mg by mouth daily. Active isosorbide mononitrate (IMDUR) 30 MG 24 hr tablet Take 60 mg by mouth daily. Active risperiDONE (RISPERDAL) 1 MG tablet Take 0.5 mg by mouth daily. 0.5 mg in am, 1mg at bedtime Active LORazepam (ATIVAN) 0.5 MG tablet Take 1 mg by mouth every 8 (eight) hours as needed. Active ranolazine (RANEXA) 500 MG 12 hr tablet Take 500 mg by mouth 2 (two) times a day. Active clopidogrel (PLAVIX) 75 mg tablet Take 75 mg by mouth daily. Active rosuvastatin (CRESTOR) 40 MG tablet Take 40 mg by mouth daily. Active busPIRone (BUSPAR) 10 MG tablet Take 10 mg by mouth 3 (three) times a day. Active buPROPion (WELLBUTRIN SR) 150 MG SR 12 hr tablet Take 150 mg by mouth 2 (two) times a day. Active Active Problems Problem Noted Date Diagnosed Date Spontaneous dissection of coronary artery 2022 Myocardial infarction Chest pain Anxiety disorder Family History Medical History Relation Comments Breast cancer Father Diabetes Maternal Uncle Breast cancer Mother Hypertension Mother Relation Status Comments Father Maternal Uncle Alive Mother Social History Tobacco Use Types Packs/Day Years Used Date Smoking Tobacco: Every Day Cigarettes Smokeless Tobacco: Never Tobacco Cessation:Ready to Q uit: Not Asked; Counseling Given: Not Answered Education Answer Date Recorded Are you interested [...] Information Value Date Recorded Sex Assigned at Not on file Legal Sex Female 4:01 PM EST Gender Identity Choose not to disclose 4:08 PM EST Sexual Orientation Choose not to disclose 2021 4:08 PM EST Last Filed Vital Signs Vital Sign Reading Time Taken Comments Blood Pressure 125/80 10/17/2022 1:50 PM EDT Pulse 70 10/17/2022 1:18 PM EDT Temperature - - Respiratory Rate - - Oxygen Saturation - - Inhaled Oxygen Concentration - - Weight 89.8 kg (198 lb) 08/30/2022 1:14 PM EDT Height 152.4 cm (5') 08/30/2022 1:14 PM EDT Body Mass Index 38.67 08/30/2022 1:14 PM EDT Plan of Treatment Health Maintenance Due Date Last Done Comments DEPRESSION SCREENING 1985 SMOKING Hx and SMOKELESS TOBACCO SCREENING 1986 HEPATITIS C SCREENING 09/17/1991 HIV ONE-TIME SCREENING (18-65 YEARS) 09/17/1991 PNEUMOCOCCAL VACCINES (50+ years) (1 of 2 - PCV) 1992 PAP SMEAR 1994 SCREENING FOR DIABETES 2008 COLOGUARD 2018 COLONOSCOPY 2018 COLORECTAL CANCER SCREENING 2018 FIT TEST 2018 FOBT 2018 SIGMOIDOSCOPY 2018 VIRTUAL COLONOSCOPY 2018 MAMMOGRAM 07/17/2020 07/17/2018 ZOSTER VACCINES (1 of 2) 09/17/2023 INFLUENZA VACCINE (#1) 2024 2, 01/20/2021, 01/24/2017, Additional history exists COVID-19 VACCINE ( - season) 2024 02/14/2021, 01/20/2021 Adult Td,Tdap Booster 01/30/2026 01/31/2016 LIPID PANEL 09/09/2027 09/08/2022 RSV VACCINE (1 - 1-dose 75+ series) 2048 HEPATITIS A VACCINES Aged Out No long er eligible based on patient's age to complete this topic HIB VACCINES Aged Out No longer eligi ble based on patient's age to complete this topic MENINGOCOCCAL VACCINES (ACWY) Aged Out No longer eligible based on patient's age to complete this topic MENINGOCOCCAL VACCINES (B) Aged Out N o longer eligible based on patient's age to complete this topic Medical Devices Not on file Insurance [facility] C3 ACO [facility] C3 ACO [facility] C3 ACO [facility] C3 ACO [facility] C3 ACO [facility] C3 ACO Care Teams Creative Consultant Relationship Specialty Start Date End Date Name, MD Tyshawn [address] [place] [address] PCP - General Geriatric Psychiatry 02/17/22 Additional Source Comments The information contained in this document represents components of the legal health record. It is not the complete legal health record.[facility]
--- OUTSIDE RECORDS SUMMARY | 2025-02-10 10:26 | XMS_ITS | Encounter Summary ---
Author Organization [employer] Address [address] [place] [address] Care Team Providers Care Mentally Impaired Teacher Name Role Phone Name, Tyshawn DIA Primary Care Provider [phone] Reason for Visit * Reason Onset Date Comments triage 03/23/2022 Encounter Details Date Type Department Care Team ([facility] st Contact Info) Description 03/23/2022 Telephone [facility] [address] [place], [place] [phone] Name, MD Tyshawn [address] [place] [address] triage Social History Tobacco Use Types Packs/Day [...] Description 02/24/2025 2:30 PM EST Office Visit [facility] [address] [place] [phone] Joe Godinez MD [address] [place] [phone] 02/25/2025 11:30 AM EST Office Visit [facility] [address] [place] [phone] NameTyshawn MD [address] [place] [phone] documented as of this encounter Visit Diagnoses Not on filedocumented in this encounter Additional Health Concerns Assessment Noted Time PHQ-9 Depression Total Score: 9 03/06/20 22 10:24 AM EST documented as of this encounter Care Teams Mentally Impaired Teacher Relationship Specialty Start Date End Date Tyshawn Del Castillo MD [address] [place] [phone] PCP - General Family Medicine 08/10/15 documented as of this encounter
--- OUTSIDE RECORDS SUMMARY | 2025-02-10 10:26 | XMS_ITS | Encounter Summary ---
Author Organization [facility] Address [address] [place] [address] Phone Care Team Providers Care Melt House Centrifugal Operator Name Role Phone Name, Tyshawn DIA Primary Care Provider [phone] Encounter Details Date Type Department Care Team (Late st Contact Info) Description 09/20/2022 Procedure Pass [facility], [place] [address] [place] [address] Social History Tobacco Use Types Packs/Day Years [...] on filedocumented in this encounter Care Teams Melt House Centrifugal Operator Relationship Specialty Start Date End Date Name, MD Tyshawn [address] [place] [address] PCP - General Geriatric Psychiatry 02/17/22 documented as of this encounter Additional Source Comments The information contained in this document represents components of the legal health record. It is not the complete legal health record.[facility]
== END 2025-02-10 10:16 | disposition home or self-care (01) ==
LOC: HO.HCS 09:19
PROVIDERS: PCP Internal Medicine Geriatric Medicine; Visit Provider Nurse Practitioner Family
DX: I25.42 Coronary artery dissection (principal); I10 Essential (primary) hypertension
CPT/HCPCS: 93010; 99214

== ENCOUNTER → 2025-02-10 09:18 | Outpatient (BNVA) | payer MEDICAID, SELFPAY | PROVIDERS: PCP Internal Medicine Geriatric Medicine; Visit Provider Nurse Practitioner Family | DX: I25.42 Coronary artery dissection (principal); I10 Essential (primary) hypertension; Z79.02 Long term (current) use of antithrombotics/antiplatelets; Z79.899 Other long term (current) drug therapy; Z87.891 Personal history of nicotine dependence | CPT/HCPCS: 93005; 99212 ==